=== PATIENT | female | born 1955 | race Caucasian/White ===

== ENCOUNTER 2018-03-31 12:13 | Observation (INO) | payer OTHER ==
--- OUTSIDE RECORDS SUMMARY | 2018-03-31 12:43 | XMS REPORT | Continuity of Care Document ---
:1955 Author Organization Interface Problems Problem Status Onset Classification Date Comments Source Date Reported CPAP 98252 Active 018 [place] 1ST NIGHT - Active 68123 018 [place] UNK Active [facility] 017 [place], [place] GARY CAMPOS Active [facility] 017 [place] E04.1 NONTOXIC Active SINGLE THYROID 016 [facility] NODULE 241.1 GOITER, Active MULTINODULAR, 014 [place] NONTOXIC GERD / Active EPICGASTRIC PAIN 014 [facility] GERD 530.81 / Active 530.85 / 787.02 014 [place] / 789.06 / 787.302=CHRONIC Active NAUSEA/530.81=AC 014 [facility] ID REFLU NAUSEA 787.02 Active /789.01 ABD PAIN 013 [facility] RUQ V12.72/530.81/78 Active 7.02 013 [facility] COPD Active EXACERBATION, 012 [place] HTN, DM Generalized Active Problem 01/30/2018 Data migrated abdominal 009 from [place],M pain<sup>1</sup> Centricity on [place] 01/07/15. Anemia Resolved Problem 01/30/2018 [place],[facility] [place] Constipation Resolved Problem 01/30/2018 [facility] [place] copd Active Problem 12/27/2013 [facility] diabetes Active Problem 12/27/2013 [facility] Emphysema Active Problem 10/25/2015 [facility] exerstemia Active Problem 12/27/2013 [facility] Fibromyalgia Active Problem 01/30/2018 [place] [place] GERD - Active Problem 01/30/2018 Gastro-esophagea [place],M l reflux disease [facility] htn Active Problem 12/27/2013 [facility] hyperlipidemia Active Problem 12/27/2013 [facility] hypothyroidism Active Problem 12/27/2013 [facility] [place] Lupus Active Problem 01/30/2018 [facility] [place] Neuropathy Active Problem 01/30/2018 [facility] [place] PE - Pulmonary Resolved Problem 12/27/2013 00060 after embolism<sup>1</ surgry [place] sup> decompression rt thigh PE - Pulmonary Active Problem 01/30/2018 embolism [place],[facility] [place] Sleep apnea Active Problem 01/30/2018 [facility] [place] systemic lupus Inactive Problem 06/27/2013 [facility] Constipation Active Problem 07/30/2012 [facility] Emphysema Active Problem 07/30/2012 [facility] Fibromyalgia Active Problem 07/30/2012 [place] Lupus Active Problem 07/30/2012 [place] PE - Pulmonary Active Problem 07/30/2012 embolism [place] Obstructive 12/13/2017 sleep apnea [place] (pediatric) Anxiety Active Problem 01/30/2018 [place] [place] COPD (<span Active Problem 01/30/2018 ID="[id number] [facility],M ">Confirmed</spa H [place] n>) BiPAP Active Problem 01/30/2018 dependence(<span [place],M ID="[id number] [facility] ">Confirmed</spa n>) Diabetes Active Problem 01/30/2018 [place] [place] Dyspnea on Active Problem 01/30/2018 exertion [facility] [place] Hyperlipidemia Active Problem 01/30/2018 [facility] [place] Hypertension Active Problem 01/30/2018 [facility] [place] Bilateral leg Active Problem 01/30/2018 weakness [place],[facility] [place] PE - Pulmonary Resolved Problem 01/30/2018 1997 after embolism<sup>2</ surgry [place],M sup> decompression H [place] rt thigh Colon polyp Resolved Problem 01/30/2018 [facility] [place] Sciatic nerve Active Problem 01/30/2018 pain [place] [place] Lupus Active Problem 01/30/2018 [facility] [place] Depression Active Problem 02/25/2017 [place],[facility] [place] CHR AIRWAY Active OBSTRUCT NEC [place] OBSTRUCTIVE Active SLEEP APNEA [place] (ADULT) (PEDIATR Medications Medication Details Route Status Patient Ordering Order Source Instructions Provider Date Sodium Chloride 1,000 mL, Inactive 02/22/ 0.154 MEQ/ML Rate: 2016 [place] Injectable ml/hr, Solution Infuse over: 47.6 hr, Route: IV, Dosing Weight 68.636 kg, Total Volume: 1,000, Start date: 02/22/17 6:27:00 CDT, Duration: 30 day, Stop date: 03/24/17 6:26:00 CDT Prialt 100 See Active mcg/mL Instructions 2017 [place] intrathecal , 500mcg solution INTRATHECAL, 0 Refill(s) Alpha Lipoic PO, Daily, 0 Active Acid 600 mg oral Refill(s) 2017 [place] capsule Culturelle 1 cap, PO, Active [facility] Daily, 0 2017 [facility] oral capsule Refill(s) tizanidine 4 MG 4 mg=1 tab, Active Oral Tablet PO, Q8H, PRN 2017 [place] [Zanaflex] for muscle spasms, # 90 tab, 0 Refill(s) Ipratropium 2 spray, Active [place] 0.021 Each 2017 [facility] MG/ACTUAT Affected Metered Dose Nostril, Nasal [place] BID, # 30 ml, 0 Refill(s) Sodium Chloride 1,000 mL, Inactive 0.154 MEQ/ML Rate: 21 2017 [place] Injectable ml/hr, Solution Infuse over: 47.6 hr, Route: IV, Dosing Weight 77.273 kg, Total Volume: 1,000, Start date: 08/24/16 6:30:00 PLASTIC SHAPER, Duration: 30 day, Stop date: 09/23/16 6:29:00 PLASTIC SHAPER Calcium Chloride 1,000 mL, Inactive 0.0014 MEQ/ML / Rate: 25 2016 [place] Potassium ml/hr, Chloride 0.004 Infuse over: MEQ/ML / Sodium 40 hr, Chloride 0.103 Route: IV, MEQ/ML / Sodium Dosing Lactate 0.028 Weight MEQ/ML 77.273 kg, Injectable Total Solution Volume: 1,000, Start date: 08/24/16 5:59:00 PLASTIC SHAPER, Duration: 30 day, Stop date: 09/23/16 5:58:00 PLASTIC SHAPER pantoprazole 40 40 mg=1 tab, Active MG Enteric PO, Daily, 0 2016 [place] Coated Tablet Refill(s) [Protonix] Plaquenil 100 mg, PO, Active Daily 2016 [place] Losartan PO, Daily, 0 Active Refill(s) 2016 [place] 24 HR 150 mg=1 Active venlafaxine 150 cap, PO, 2016 [place] MG Extended Daily, 0 Release Capsule Refill(s) [Effexor] 12 HR 100 mg=1 Active Orphenadrine tab, PO, 2016 [place] Citrate 100 MG BID, 0 Extended Release Refill(s) Tablet doxepin 10 mg 10 mg=1 cap, Active oral capsule PO, Bedtime 2016 [place] apixaban 5 MG 5 mg=1 tab, Active Oral Tablet PO, BID 2016 [place] [Eliquis] Clonidine 0.1 mg=1 Active Hydrochloride tab, PO, 2016 [place] 0.1 MG Oral BID, PRN Q Tablet 2hrs SBP >170 or DBP >95 Metformin 1,000 mg=1 Active hydrochloride tab, PO, 2016 [place] 1000 MG Oral BID, 0 Tablet Refill(s) magnesium oxide 250 mg=1 Active 250 mg oral tab, PO, 2016 [place] tablet BID, 0 Refill(s) Lorazepam 0.5 MG 0.5 mg=1 Active Oral Tablet tab, PO, 2016 [place] [Ativan] PRN, PRN as needed for anxiety, 0 Refill(s) Visipaque 100 mL, 0 Inactive ml/hr, 2013 Route: IV, Drug Form: SOLN, ONCE, Start date: 11/19/13 10:12:00, Stop date: 11/19/13 10:12:00Note s: (Same as: Visipaque). Sodium Chloride 1,000 mL, Inactive [place] 0.9% IV 1000 mL Rate: 25 2012 ml/hr, Infuse over: 40 hr, Route: IV, Dosing Weight 80.909 kg, Total Volume: 1,000, Start date: 06/25/13 10:04:00, Duration: 30 day, Stop date: 07/25/13 10:03:00 metFORmin 500 mg 500 mg, 1 Active oral tablet tab, PO, 2012 BID, 30 tab, Substitution Allowed Benadryl 25 mg Substitution Active oral tablet Allowed 2012 albuterol 90 2 puff, Active mcg/inh INHALATION, 2012 inhalation PRN, PRN, 1 aerosol ea, wheezing, Substitution Allowed, Maintenance predniSONE 5 mg 5 mg, 1 tab, Active oral tablet PO, Daily, 2012 14 tab, Substitution Allowed, TAB potassium 10 mEq, 1 Active chloride 10 mEq tab, PO, 2012 [facility] oral tablet, BID, 10 tab, extended release Substitution Allowed magnesium oxide 400 mg, 1 Active 400 mg oral tab, PO, 2012 [facility] tablet BID, 10 tab, Substitution Allowed, TAB isosorbide 30 mg, 1 Active dinitrate 30 mg tab, PO, 2012 [facility] oral tablet Daily, 120 tab, Substitution Allowed, TAB doxycycline 100 mg, 1 Active hyclate 100 mg cap, PO, 2012 [facility] oral capsule Q12H, 20 cap, Substitution Allowed Nucynta 50 mg 50 mg, 1 Active oral tablet tab, PO, 2012 [facility] Q4H, PRN, for pain, Substitution Allowed, TAB Nucynta ER 200 PO, BID, Active mg oral tablet, Substitution 2012 [facility] extended release Allowed DuoNeb 3 ml, INHALATION Active [facility] inhalation INHALATION, 2011 [facility] solution Q6H, PRN, 60 ea, as needed for shortness of breath or wheezing, Substitution Allowed, Maintenance, SOLN Levaquin 500 mg 500 mg, 1 PO Active [facility] oral tablet tab, PO, 2011 [facility] Q24H, 7 tab, Substitution Allowed predniSONE taper See Active [facility] weekly Instructions 2011 [facility] , Substitution Allowed, 20 mg PO daily for 3 days then 10 mg PO daily for 3 days then 5 mg PO daily for 3 days then d/c20 mg PO daily for 3 days then 10 mg PO daily for 3 days then 5 mg PO daily for 3 days then d/c Nebulizer 1 ea, MISC, MISC Active [facility] ONCALL, 1 2011 [facility] ea, Substitution Allowed, Maintenance Lancets 1 box, MISC, MISC Active [facility] Daily, 1 2011 [facility] box, Substitution Allowed, Maintenance Blood Glucose 1 box, MISC, MISC Active [facility] Test Strips BID-Before 2011 Meals, 100 strip, Substitution Allowed, Maintenance Blood Glucose 1 ea, MISC, MISC Active [facility] Monitor Daily, Use 2011 as directed., 1 ea, Substitution Allowed, MaintenanceU se as directed. Kayexalate 30 gm, 120 PO No Longer Yessy mL, Route: Active 2011 [facility] PO, Drug form: SUSP, ONCE, Dosing Weight 81.818, kg, Start date: 07/27/12 15:21:00, Stop date: 07/27/12 15:21:00 nitroglycerin 0.4 mg, 1 SL No Longer Yessy 0.4 mg tab, Route: 2011 sublingual SL, Drug tablet form: TAB, Q5Min, PRN Chest Pain, Start date: 07/25/12 1:25:00, Duration: 30 day, Stop date: 08/24/12 1:24:00 atropine 0.5 mg, 5 IVP No Longer Yessy mL, Route: 2011 [facility] IVP, Drug form: INJ, PRN, PRN Bradycardia, Start date: 07/25/12 1:25:00, Duration: 30 day, Stop date: 08/24/12 1:24:00 Dilaudid 1 mg, 1 mL, IV No Longer Yessy Route: IV, Active 2011 [facility] Drug form: SOLN, Q3H, Dosing Weight 81.818, kg, PRN Pain Score 4-6, Start date: 07/24/12 10:46:00, Duration: 30 day, Stop date: 08/23/12 10:45:00 SoluMedrol 20 mg, 0.5 IVP No Longer Yessy mL, Route: 2011 [facility] IVP, Drug form: INJ, Q12H, Dosing Weight 81.818, kg, Start date: 07/23/12 21:00:00, Stop date: 08/22/12 9:00:00 Levemir 12 unit, SUB-Q No Longer [place] 0.12 mL, Active 2011 Route: SUB-Q, Drug form: INJ, Bedtime, Dosing Weight 81.818, kg, Start date: 07/23/12 21:00:00, Duration: 30 day, Stop date: 08/21/12 21:00:00 nystatin 100,000 500,000 S&SWALLOW No Longer [place] units/mL oral unit, 5 mL, [facility] 2011 [facility] suspension Route: S&SWALLOW, Drug form: SUSP, QID, Dosing Weight 81.818, kg, Start date: 07/23/12 9:00:00, Duration: 7 day, Stop date: 07/29/12 21:00:00 Mucinex DM 1 tab, PO No Longer [place] Route: PO, [facility] 2011 [facility] Drug Form: ERTAB, Dosing Weight 81.818, kg, Q12H, Start date: 07/23/12 9:00:00, Duration: 30 day, Stop date: 08/21/12 21:00:00 Diflucan 200 mg, 2 PO No Longer [place] tab, Route: [facility] 2011 [facility] PO, Drug form: TAB, [id number], Dosing Weight 81.818, kg, Start date: 07/23/12 8:00:00, Duration: 5 day, Stop date: 07/27/12 8:00:00 Fleet Enema 133 ml, GA No Longer [place] Route: GA, [facility] 2011 [facility] Drug Form: KRISTIE, Dosing Weight 81.818, kg, ONCE, Start date: 07/23/12 7:42:00, Stop date: 07/23/12 7:42:00 MiraLax 17 gm, 1 PO No Longer [place] pkt, Route: [facility] 2011 [facility] PO, Drug form: PWDR, Bedtime, Dosing Weight 81.818, kg, Start date: 07/22/12 21:00:00, Duration: 30 day, Stop date: 08/20/12 21:00:00 Protonix 40 mg, 1 PO No Longer [place] tab, Route: [facility] 2011 [facility] PO, Drug form: ECTAB, Before Dinner, Start date: 07/22/12 16:30:00, Duration: 30 day, Stop date: 08/20/12 16:30:00 NovoLog 15 unit, SUB-Q No Longer [place] 0.15 mL, Active 2011 [facility] Route: SUB-Q, Drug form: SOLN, TID-Before Meals, Dosing Weight 81.818, kg, Start date: 07/22/12 11:30:00, Stop date: 08/21/12 7:30:00 Caltrate 600 Route: PO, PO No Longer [facility] Plus Dosing Active 2011 [facility] Weight 81.818, kg, Daily, Start date: 07/22/12 9:00:00, Duration: 30 day, Stop date: 08/20/12 9:00:00 calcium-vitamin 1 tab, PO No Longer [facility] D 500 mg-200 Route: PO, 2011 [facility] intl units oral Drug Form: tablet TAB, Daily, Start date: 07/22/12 9:00:00, Duration: 30 day, Stop date: 08/20/12 9:00:00 lidocaine 1 appl, TOP No Longer [facility] topical 0.5% gel Route: TOP, Active 2011 [facility] Drug Form: GEL, Dosing Weight 81.818, kg, TID, Start date: 07/22/12 9:00:00, Duration: 30 day, Stop date: 08/20/12 17:00:00 amlodipine-olmes 1 tab, PO No Longer [facility] ирина 5 mg-40 mg Route: PO, 2011 [facility] oral tablet Dosing Weight 81.818, kg, Daily, Start date: 07/22/12 9:00:00, Duration: 30 day, Stop date: 08/20/12 9:00:00 esomeprazole 40 mg, PO No Longer [place] Route: PO, 2011 [facility] Drug form: ECCAP, Daily, Dosing Weight 81.818, kg, Start date: 07/22/12 9:00:00, Duration: 30 day, Stop date: 08/20/12 9:00:00 folic acid 1 mg, 1 tab, PO No Longer [place] Route: PO, 2011 [facility] Drug form: TAB, Daily, Dosing Weight 81.818, kg, Start date: 07/22/12 9:00:00, Duration: 30 day, Stop date: 08/20/12 9:00:00 Cymbalta 60 mg, 2 PO No Longer [place] cap, Route: Active 2011 [facility] PO, Drug form: DRC, Daily, Dosing Weight 81.818, kg, Start date: 07/22/12 9:00:00, Duration: 30 day, Stop date: 08/20/12 9:00:00 Evoxac 30 mg, 1 PO No Longer [place] cap, Route: Active 2011 [facility] PO, Drug form: CAP, TID, Dosing Weight 81.818, kg, Start date: 07/22/12 9:00:00, Duration: 30 day, Stop date: 08/20/12 17:00:00 Benicar 40 mg, 2 PO No Longer [facility] tab, Route: Active 2011 [facility] PO, Drug form: TAB, Daily, Start date: 07/22/12 9:00:00, Duration: 30 day, Stop date: 08/20/12 9:00:00 dextromethorphan 1 tab, PO No Longer Misael -guaifenesin Route: PO, Active 2011 [facility] Drug Form: ERTAB, BID, Start date: 07/22/12 9:00:00, Duration: 30 day, Stop date: 08/20/12 17:00:00 Norvasc 5 mg, 1 tab, PO No Longer [place] Route: PO, [facility] 2011 [facility] Drug form: TAB, Daily, Start date: 07/22/12 9:00:00, Duration: 30 day, Stop date: 08/20/12 9:00:00 Zithromax 500 mg 250 mg, 1 PO No Longer [facility] oral tablet tab, Route: Active 2011 [facility] PO, Drug form: TAB, Daily, Dosing Weight 81.818, kg, Start date: 07/22/12 9:00:00, Duration: 30 day, Stop date: 08/20/12 9:00:00 Mucinex DM 1 tab, PO No Longer [place] Route: PO, Active 2011 [facility] Drug Form: ERTAB, Dosing Weight 81.818, kg, Q12H, Start date: 07/22/12 9:00:00, Duration: 30 day, Stop date: 08/20/12 21:00:00 cyanocobalamin 1,000 PO No Longer [place] microgram, 2 Active 2011 [facility] tab, Route: PO, Drug form: TAB, Daily, Dosing Weight 81.818, kg, Start date: 07/22/12 9:00:00, Duration: 30 day, Stop date: 08/20/12 9:00:00 Lidocaine 0.5% Lidocaine TOP No Longer [facility] Topical Gel 0.5% Topical Active 2011 [facility] Pt's Own Med Gel Pt's Own Med, 1 appl, Drug form: MISC, Route: TOP, TID, 07/22/12 9:00:00, Duration: 30 day, Stop date: 08/20/12 17:00:00 Zanaflex 4 mg, 1 tab, PO No Longer [place] Route: PO, Active 2011 [facility] Drug form: TAB, TID, Dosing Weight 81.818, kg, Start date: 07/22/12 9:00:00, Duration: 30 day, Stop date: 08/20/12 17:00:00 Carafate 1 gm, 1 tab, PO No Longer [place] Route: PO, Active 2011 [facility] Drug form: TAB, BID, Dosing Weight 81.818, kg, Start date: 07/22/12 9:00:00, Duration: 30 day, Stop date: 08/20/12 17:00:00 Neurontin 300 mg 300 mg, 1 PO No Longer [facility] oral capsule cap, Route: Active 2011 [facility] PO, Drug form: CAP, Q8H, Dosing Weight 81.818, kg, Start date: 07/22/12 8:00:00, Duration: 30 day, Stop date: 08/21/12 0:00:00 clonidine 0.1 mg 0.1 mg, 1 PO No Longer [facility] oral tablet tab, Route: Active 2011 PO, Drug form: TAB, Q8H, Dosing Weight 81.818, kg, Start date: 07/22/12 8:00:00, Duration: 30 day, Stop date: 08/21/12 0:00:00 levothyroxine 25 PO No Longer [place] microgram, 1 Active 2011 [facility] tab, Route: PO, Drug form: TAB, [id number], Dosing Weight 81.818, kg, Start date: 07/22/12 6:30:00, Duration: 30 day, Stop date: 08/20/12 6:30:00 RN pls bring RN pls bring MISC No Longer [facility] pt's own med pt's own med Active 2011 [facility] 'Lidocaine 'Lidocaine 0.5%gel' to Rph 0.5%gel' to Rph, 1 attn, Drug form: MISC, Route: MISC, QSHIFT, 07/22/12 6:00:00, Duration: 3 day, Stop date: 07/25/12 0:00:00 Ativan 1.5 mg, 1.5 PO No Longer [place] tab, Route: Active 2011 [facility] PO, Drug form: TAB, Q4H, PRN Anxiety, Start date: 07/22/12 4:20:00, Duration: 30 day, Stop date: 08/21/12 4:19:00 methylPREDNISolo 60 mg, 0.96 IV No Longer [facility] ne mL, Route: Active 2011 [facility] IV, Drug form: INJ, Q8H, Start date: 07/22/12 0:00:00, Duration: 30 day, Stop date: 08/20/12 16:00:00 Rocephin + 1 gm, Route: IVPB No Longer [place] Sodium Chloride IVPB, Active 2011 [facility] 0.9% IV 100 mL [id number], Dosing Weight 81.818, kg, Start date: 07/22/12 0:00:00, Duration: 30 day, Stop date: 08/20/12 0:00:00 enoxaparin 40 mg, 0.4 SUB-Q No Longer [place] mL, Route: Active 2011 [facility] SUB-Q, Drug form: INJ, [id number], Dosing Weight 81.818, kg, Start date: 07/22/12 0:00:00, Duration: 30 day, Stop date: 08/20/12 0:00:00 Mucinex DM 1 tab, PO, PO Active [place] Q12H, 2011 Substitution Allowed, Maintenance Vitamin B-12 1,000 PO Active [place] 1000 mcg oral microgram, 1 2011 [facility] tablet tab, PO, Daily, 30 tab, Substitution Allowed, TAB Ativan 1 mg, 1 tab, PO No Longer [place] Route: PO, Active 2011 [facility] Drug form: TAB, Q4H, Dosing Weight 81.818, kg, PRN as needed for anxiety, Start date: 07/21/12 23:41:00, Duration: 30 day, Stop date: 08/20/12 23:40:00 Phenergan 25 mg 50 mg, 2 PO Active oral tablet tab, PO, 2011 Q4H, PRN, 15 tab, Nausea, Substitution Allowed [place] 10/325 1-2 tab, PO, PO Active oral tablet TID, PRN, 30 2011 tab, as needed for pain, Substitution Allowed, Maintenance Ativan 1 mg oral 1-1.5 tab, PO Active [facility] tablet PO, Q4H, 2011 PRN, 20 tab, as needed for anxiety, Substitution Allowed lidocaine 1 appl, TOP, TOP Active [facility] topical 0.5% gel TID, 120 gm, 2011 Substitution Allowed, Maintenance, GEL multivitamin Substitution Active Allowed, 2011 Maintenance Zocor 40 mg oral 40 mg, 1 PO Active tablet tab, PO, 2011 Daily, 30 tab, Substitution Allowed, Maintenance Neurontin 300 mg 300 mg, 1 PO Active [facility] oral capsule cap, PO, 2011 TID, 90 cap, Substitution Allowed levothyroxine 25 25 PO Active [facility] mcg (0.025 mg) microgram, 1 2011 [facility] oral tablet tab, PO, Daily, 30 tab, Substitution Allowed, TAB Caltrate 600 Substitution Active [facility] 07/22/ Plus Allowed, 2011 Maintenance potassium 10 mEq, 1 PO No Longer chloride 10 mEq tab, PO, Active 2011 [facility] oral tablet, BID, 10 tab, extended release Substitution Allowed Ziac 10 mg-6.25 1 tab, PO, PO Active mg oral tablet Daily, 30 2011 tab, Substitution Allowed, Maintenance, TAB Zanaflex 4 mg 4 mg, 1 cap, PO Active [facility] 12/15/ [facility] oral capsule PO, TID, 90 2011 cap, Substitution Allowed, CAP predniSONE 5 mg 5 mg, 1 tab, PO No Longer [facility] oral tablet PO, Daily, 7 Active 2011 tab, Substitution Allowed, TAB Nexium 40 mg 40 mg, 1 PO Active [facility] oral delayed cap, PO, 2011 release capsule Daily, Substitution Allowed folic acid 1 mg 1 mg, 1 tab, PO Active [facility] 07/22/ [facility] oral tablet PO, Daily, 2011 30 tab, Substitution Allowed, TAB Evoxac 30 mg 30 mg, 1 PO Active [facility] oral capsule cap, PO, 2011 TID, 270 cap, Substitution Allowed, CAP Cymbalta 60 mg 60 mg, 1 PO Active [facility] oral delayed cap, PO, 2011 release capsule Daily, 30 cap, Substitution Allowed, ECCAP Coumadin 3 mg 3 mg, 1 tab, PO Active 07/22/ [facility] oral tablet PO, Daily, 2011 30 tab, Substitution Allowed, TAB clonidine 0.1 mg 0.1 mg, PO, PO Active [facility] oral tablet Daily, PRN, 2011 60 tab, anxiety, Substitution Allowed Carafate 1 g 1 gm, 1 tab, PO Active [facility] oral tablet PO, BID, 120 2011 tab, Substitution Allowed Benicar HCT 12.5 1 tab, PO, PO Active [facility] 07/22/ [facility] mg-40 mg oral Daily, 30 2011 tablet tab, Substitution Allowed, Maintenance, TAB MiraLax oral 17 gm, PO, PO Active [facility] powder for Bedtime, 255 2011 reconstitution gm, Substitution Allowed, PDR/REC DuoNeb 3 mL, Route: NEB No Longer [facility]ael inhalation NEB, Drug Active 2011 solution Form: KENDALL [id number], Start date: 07/21/12 23:00:00, Duration: 30 day, Stop date: 08/20/12 19:00:00 Levaquin 750 mg, 150 IV No Longer [facility] MH mL, Route: Active 2011 IV, Drug form: KENDALL [id number], Start date: 07/21/12 23:00:00, Duration: 30 day, Stop date: 08/19/12 23:00:00 Dextrose 50% in 50 mL, IVP No Longer [facility] Water IV Route: IVP, Active 2011 [facility] Start date: 07/21/12 22:31:00, Duration: 30 day, Stop date: 08/20/12 22:30:00, PRN Blood Glucose Results glucagon 1 mg, Route: IM No Longer [facility] 07/22/ IM, Drug Active 2011 [facility] form: PDR/INJ, PRN, PRN Blood Glucose Results, Start date: 07/21/12 22:31:00, Duration: 30 day, Stop date: 08/20/12 22:30:00 NovoLog FlexPen 18 unit, SUB-Q No Longer [facility] 0.18 mL, Active 2011 [facility] Route: SUB-Q, Drug form: SOLN, Sliding Scale, PRN Blood Glucose Results, Start date: 07/21/12 22:30:00, Duration: 30 day, Stop date: 08/20/12 22:29:00 DuoNeb 3 mL, Route: NEB No Longer [facility] inhalation NEB, Drug Active 2011 [facility] solution Form: SOLN, RQ2H, PRN Shortness of breath, Start date: 07/21/12 22:12:00, Duration: 30 day, Stop date: 08/20/12 22:11:00 clonidine 0.1 mg 0.1 mg, 1 PO No Longer [place] oral tablet tab, Route: Active 2011 [facility] PO, Drug form: TAB, Q6H, PRN Other -See Comment, Start date: 07/21/12 22:11:00, Duration: 30 day, Stop date: 08/20/12 22:10:00 hydrALAZINE 20 mg, 1 mL, IV No Longer [facility] Route: IV, Active 2011 [facility] Drug form: INJ, Q6H, PRN Other -See Comment, Start date: 07/21/12 22:10:00, Duration: 30 day, Stop date: 08/20/12 22:09:00 Tylenol 650 mg, 2 PO No Longer [facility] 07/22/ tab, Route: Active 2011 [facility] PO, Drug form: TAB, Q6H, PRN Pain/Fever, Start date: 07/21/12 22:10:00, Duration: 30 day, Stop date: 08/20/12 22:09:00 Zofran 4 mg, 2 mL, IVP No Longer [facility] Route: IVP, Active 2011 [facility] Drug form: INJ, Q4H, PRN Nausea, Start date: 07/21/12 22:10:00, Duration: 30 day, Stop date: 08/20/12 22:09:00 Ambien 5 mg, 1 tab, PO No Longer [facility] Route: PO, Active 2011 [facility] Drug form: TAB, Bedtime, PRN Sleep, Start date: 07/21/12 22:09:00, Duration: 30 day, Stop date: 08/20/12 22:08:00 morphine Sulfate 4 mg, 2 mL, IV No Longer [facility] Route: IV, Active 2011 [facility] Drug form: INJ, Q4H, PRN Pain, Start date: 07/21/12 22:09:00, Duration: 30 day, Stop date: 08/20/12 22:08:00 Allergies, Adverse Reactions, Alerts Substance Category Reaction Severity Reaction Status Date Comments Source type Reported codeine<davis Assertion Nausea Drug Active Data p>1</sup> and allergy [address] [place] [facility] [address] [facility]. Originally documented as CODEINE. Gastrointes tinal problems, e.g., nausea, vomiting, diarrhea codeine Assertion Nausea Propensity Active and to adverse [place] vomiting reactions to drug Immunizations Immunization Date Given Site Status Last Updated Comments Source Results Order Name Results Value Reference Date Interpretation Comments Source Range CHEM PANEL eGFR 87 02/15 Result Comment: The eGFR is calculated using the CKD-EPI formula. In most young, healthy individuals the eGFR will be >90 mL/ min/1.73m2. The eGFR declines with age. An eGFR of 60-89 may be normal in mL/min/1. some populations, particularly the elderly, for whom the CKD-EPI formula has not been extensively validated. Use of the eGFR is not recommended in the following populations: [place] [id number] Individuals with unstable creatinine concentrations, including patients and those with serious co-morbid conditions. Patients with extremes in muscle mass or diet. The data above are obtained from the National Kidney Disease Education Program (NKDEP) which additionally recommends that when the eGFR is used in patients with extremes of body mass index for purposes of drug dosing, the eGFR should be multiplied by the estimated BMI. CHEM PANEL Chloride Lvl 108 meq/L 95 - 109 02/15 [place] CHEM PANEL Potassium 4.0 meq/L 3.5 - 5.1 02/15 Lvl [place] CHEM PANEL AGAP 6.0 meq/L 10.0 - 02/15 20.0 [place] CHEM PANEL CO2 35 meq/L 24 - 02/15 [place] CHEM PANEL Calcium Lvl 8.5 mg/dL 8.5 - 10.5 02/15 [place] CHEM PANEL Glucose Lvl 84 mg/dL 70 - 99 02/15 [place] CHEM PANEL BUN 16 mg/dL 7 - 22 02/15 [place] CHEM PANEL Creatinine 0.74 mg/dL 0.50 - 02/15 Lvl 1. [place] CHEM PANEL Sodium Lvl 145 meq/L 135 - 145 02/15 [place] SPECIAL Hgb A1C 5.9 % <=5.6 % 02/15 [place] CHEM PANEL eGFR 75 08/17 Result Comment: The eGFR is calculated using the CKD-EPI formula. In most young, healthy individuals the eGFR will be >90 mL/ min/1.73m2. The eGFR declines with age. An eGFR of 60-89 may be normal in mL/min/1. some populations, particularly the elderly, for whom the CKD-EPI formula has not been extensively validated. Use of the eGFR is not recommended in the following populations: [place] [address] Individuals with unstable creatinine concentrations, including patients and those with serious co-morbid conditions. Patients with extremes in muscle mass or diet. The data above are obtained from the National Kidney Disease Education Program (NKDEP) which additionally recommends that when the eGFR is used in patients with extremes of body mass index for purposes of drug dosing, the eGFR should be multiplied by the estimated BMI. CHEM PANEL CO2 31 meq/L 24 - 32 08/17 [place] CHEM PANEL Calcium Lvl 9.2 mg/dL 8.5 - 10.5 08/17 [place] CHEM PANEL AGAP 10.1 meq/L 10.0 - 08/17 MH 20.0 [place] CHEM PANEL Creatinine 0.84 mg/dL 0.50 - 08/17 MH Lvl 1.40 [place] CHEM PANEL Sodium Lvl 146 meq/L 135 - 145 08/17 [place] CHEM PANEL Potassium 4.1 meq/L 3.5 - 5.1 08/17 MH Lvl [place] CHEM PANEL Chloride Lvl 109 meq/L 95 - 109 08/17 [place] CHEM PANEL Glucose Lvl 100 mg/dL 70 - 99 08/17 [place] CHEM PANEL BUN 14 mg/dL 7 - 22 08/17 [place] Thyroid US Thyroid US THYROID ULTRASOUND 10/21 - INDICATION:Follow-up nontoxic thyroid nodule Read by: Esa House MD Dictated Date/time: 10/23/15 17:52 Electronically Signed by: Esa House MD 10/23/15 17:54 FINAL REPORT COMPARISON: Thyroid ultrasound 12/25/2013 DISCUSSION: The thyroid is normal in size, but diffusely heterogeneous in echotexture. The right lobe measures 4.1 x 1.3 x 1.5 cm. The left lobe measures 3.1 x 1.2 x 1.1 cm. The isthmus measures 0.3 cm in width. Th ere is no significant interval change in a heterogeneous nodule of the mid right lobe, measuring 1.4 cm in greatest dimension. An adjacent 5 mm simple cyst is again noted. No nodularity is seen on the left side. IMPRESSION: Grossly stable 1.4 cm right lobe nodule. SL:16 Thyroid US Thyroid US THYROID ULTRASOUND: The right lobe is 3.7 cm in length and 1.3 x 1.6 cm in transverse dimension. The left lobe is 3.7 cm in length and a 0.9 x 1.3 cm in transverse dimension. The isthmus is 3 mm in thic 12/25 [facility]. There is diffusely heterogeneous echotexture of the thyroid with rounded slightly lobular contours. Read by: Garret Mendez MD There is a 1.2 cm heterogeneous ovoid nodule in the mid right lobe demonstrating a couple of small cystic areas and mildly increased vascularity. This was previously demonstrated on the ultrasound of Dictated Date/ time: 12/26/13 07: and appears relatively similar except for slightly less cystic change. A 5 mm cyst in the posterior right lobe is demonstrated and also unchanged. No other nodules or cysts are seen. Electronically Signed by: Garret Mendez MD 12/26/13 07:33 FINAL REPORT IMPRESSION: Stable nodule in the right lobe. SL:13 Abdomen w Abdomen w IV CT ABDOMEN WITH CONTRAST: 11/[address] TECHNIQUE: The exam was done with oral and IV contrast. Read by: Garret Mendez Dictated Date/time: 11/19/13 10:25 Electronically Signed by: Garret Mendez MD 11/19/13 10:29 FINAL REPORT FINDINGS: There is no definite mass seen involving the distal esophagus or GE junction. There is moderate fecal material in the colon. The stomach and remainder of the visible GI tract are otherwise within normal limits. The liver, gallbladder, spleen, pancreas, kidneys and adrenal glands show no significant abnormalities. There are no significant vascular or retroperitoneal abnormalities. IMPRESSION: No significant CT abnormality of the abdomen. SL:13 [place]ad[place] Gallbladder HISTORY: Nausea. 10/24 r scan scan HIDA wo /2013 HIDA wo meds NM meds NM Nuclear gallbladder scan with gallbladder ejection fraction. Read by : Brennen Austin Dictated Date/time: 10/24/13 13:07 Electronically Signed by: Brennen Austin MD 10/24/13 13:13 FINAL REPORT The patient was administered 6 mCi technetium 99m Choletec radiotracer. Gallbladder is noted by 15 minutes and small bowel noted by 45 minutes. This is consistent with a normal nuclear gallbladder scan. The patient was then administered oral fatty meal to stimulate gallbladder contraction. (Cholecystokinin infusion not available.) Gallbladder ejection fraction calculated to be 41%. Although slightly low, the physiologic significance of this finding is uncertain. SL:13 Abdomen Abdomen PROCEDURE: Abdomen complete US 06/25 complete complete US /2012 US CLINICAL INFORMATION: abd pain, ruq pain Read by: Corby Salomon Dictated Date/time: 06/25/13 16:03 COMPARISON: None. Electronically Signed by: Corby Salomon MD 06/25/13 16:06 FINAL REPORT FINDINGS: The pancreas body is normal. The head and tail are obscured by bowel gas. The aorta and inferior vena cava appear normal on grayscale imaging. The liver echotexture is increased. There is no intrahepatic ductal dilation. The gallbladder is without stones, pericholecystic fluid or abnormal wall thickness. The common bile duct measures 3.8 mm. The right kidney measures 10.5 x 4.8 x 4.3 cm. The renal cortical thickness measures 1.2 cm. The left kidney measures 10.1 x 6.3 x 4.6 cm. The renal cortical thickness measures 2.0 cm. There is normal corticomedullary differentiation and flow, there is no hydronephrosis. The spleen measures 9 x 4.2 cm. IMPRESSION: 1. Increased liver echogenicity secondary to fatty infiltration or hepatocellular disease. SL: 13 BEDSIDE Gluc POC 191 mg/dL 70 - 99 07/28 [place] 2Interpretive GLUCOSE Lifscn Data: [facility] TESTING Upper Reportable Limit: 200 mg/dL. BEDSIDE Comment1 Assess 07/28 [facility] GLUCOSE patient /2011 [facility] TESTING BEDSIDE Comment2 Notify 07/28 [facility] GLUCOSE RN/MD [facility] TESTING BEDSIDE Comment2 Notify 07/28 [facility] GLUCOSE RN/MD [facility] TESTING BEDSIDE Gluc POC 225 mg/dL 70 - 99 07/28 [place] 3Interpretive GLUCOSE Lifscn Data: [facility] TESTING Upper Reportable Limit: 200 mg/dL. BEDSIDE Comment1 Assess 07/28 [facility] GLUCOSE patient /2011 [facility] TESTING BEDSIDE Gluc POC 187 mg/dL 70 - 99 07/28 [place] 4Interpretive GLUCOSE Lifscn Data: [facility] TESTING Upper Reportable Limit: 200 mg/dL. BEDSIDE Comment1 Notify 07/28 [facility] GLUCOSE RN/MD [facility] TESTING CHEMISTRY eGFR 81 07/28 NA 6Result Comment: The eGFR is calculated using the CKD-EPI formula. In most young, healthy individuals the eGFR will be > 90 mL/min/1.73m2. The eGFR declines with age. An eGFR of 60-89 may be normal in MH mL/min/1.7 /2012 some populations, particularly the elderly, for whom the CKD-EPI formula has not been extensively validated. Use of the eGFR is not recommended in the following populations: [facility] 3m2 Individuals with unstable creatinine concentrations, including patients and those with serious co-morbid conditions. Patients with extremes in muscle mass or diet. The data above are obtained from the National Kidney Disease Education Program (NKDEP) which additionally recommends that when the eGFR is used in patients with extremes of body mass index for purposes of drug dosing, the eGFR should be multiplied by the estimated BMI. CHEMISTRY BUN 24 mg/dL 7 - 22 07/28 [place] MH /2011 [facility] CHEMISTRY Glucose Lvl 188 mg/dL 70 - 99 07/28 [place] 9Interpretive Data: Adult reference range values reflect the clinical guidelines of the [place] [employer]. [facility] CHEMISTRY CO2 30 meq/L 24 - 32 07/28 Normal MH [facility] CHEMISTRY Creatinine 0.8 mg/dL 0.5 - 1.4 07/28 Normal MH Lvl /2011 [facility] CHEMISTRY Calcium Lvl 8.3 mg/dL 8.5 - 10.5 07/28 LOW MH /2011 [facility] CHEMISTRY AGAP 13.8 meq/L 10.0 - 07/28 Normal MH 20.0 [facility] CHEMISTRY Chloride Lvl 102 meq/L 95 - 109 07/28 Normal [facility] CHEMISTRY Sodium Lvl 141 meq/L 135 - 145 07/28 Normal MH [facility] CHEMISTRY Potassium 4.8 meq/L 3.5 - 5.1 07/28 Normal MH Lvl /2011 [facility] HEMATOLOGY MCHC 32.9 g/dL 32.0 - 07/28 Normal MH 36.0 [facility] HEMATOLOGY MPV 9.8 fL 7.4 - 10.4 07/28 Normal MH /2011 [facility] HEMATOLOGY Platelet 202 K/CMM 133 - 450 07/28 Normal [facility] HEMATOLOGY RDW 14.9 % 11.5 - 07/28 HI MH 14.5 [facility] HEMATOLOGY WBC 14.3 K/CMM 3.7 - 10.4 07/28 HI MH /2011 [facility] HEMATOLOGY MCH 30.9 pg 27.0 - 07/28 Normal MH 31.0 [facility] HEMATOLOGY MCV 93.8 fL 81.0 - 07/28 Normal MH 99.0 [facility] HEMATOLOGY Hct 35.0 % 36.0 - 07/28 LOW MH 48.0 [facility] HEMATOLOGY Hgb 11.5 g/dL 12.0 - 07/28 LOW MH 16.0 [facility] HEMATOLOGY RBC 3.73 M/CMM 4.20 - 07/28 LOW MH 5.40 /2011 [facility] CHEMISTRY Sodium Lvl 138 meq/L 135 - 145 07/27 Normal MH /2011 [facility] CHEMISTRY Chloride Lvl 99 meq/L 95 - 109 07/27 Normal [facility] CHEMISTRY Potassium 5.9 meq/L 3.5 - 5.1 07/27 HI Lvl [facility] CHEMISTRY eGFR 100 07/27 NA 7Result Comment: The eGFR is calculated using the CKD-EPI formula. In most young, healthy individuals the eGFR will be > 90 mL/min/1.73m2. The eGFR declines with age. An eGFR of 60-89 may be normal in mL/min/1.7 some populations, particularly the elderly, for whom the CKD-EPI formula has not been extensively validated. Use of the eGFR is not recommended in the following populations: [facility] 3m2 Individuals with unstable creatinine concentrations, including patients and those with serious co-morbid conditions. Patients with extremes in muscle mass or diet. The data above are obtained from the National Kidney Disease Education Program (NKDEP) which additionally recommends that when the eGFR is used in patients with extremes of body mass index for purposes of drug dosing, the eGFR should be multiplied by the estimated BMI. CHEMISTRY Calcium Lvl 8.2 mg/dL 8.5 - 10.5 07/27 LOW MH [facility] CHEMISTRY Creatinine 0.6 mg/dL 0.5 - 1.4 07/27 Normal Lvl [facility] CHEMISTRY BUN 24 mg/dL 7 - 22 07/27 HI [facility] CHEMISTRY CO2 28 meq/L 24 - 32 07/27 Normal [facility] CHEMISTRY Glucose Lvl 207 mg/dL 70 - 99 07/27 [place] 10Interpretive Data: Adult reference range values reflect the clinical guidelines of the [place] [employer]. [facility] CHEMISTRY AGAP 16.9 meq/L 10.0 - 07/27 Normal MH 20.0 [facility] HEMATOLOGY WBC 15.9 K/CMM 3.7 - 10.4 07/27 HI [facility] HEMATOLOGY RBC 3.82 M/CMM 4.20 - 12 LOW MH 5.40 [facility] HEMATOLOGY Hgb 11.8 g/dL 12.0 - 07/27 LOW MH 16.0 [facility] HEMATOLOGY Hct 35.6 % 36.0 - 07/27 LOW MH 48.0 [facility] HEMATOLOGY MCV 93.2 fL 81.0 - 07/27 Normal MH 99.0 [facility] HEMATOLOGY MCH 30.9 pg 27.0 - 07/27 Normal MH 31.0 /2012 [facility] HEMATOLOGY Platelet 197 K/CMM 133 - 450 07/27 Normal [facility] HEMATOLOGY MPV 9.8 fL 7.4 - 10.4 07/27 Normal [facility] HEMATOLOGY MCHC 33.2 g/dL 32.0 - 07/27 Normal MH 36.0 [facility] HEMATOLOGY RDW 14.8 % 11.5 - 07/27 HI MH 14.5 [facility] CHEMISTRY AGAP 14.7 meq/L 10.0 - 07/26 Normal MH 20.0 [facility] CHEMISTRY eGFR 70 07/26 NA 8Result Comment: The eGFR is calculated using the CKD-EPI formula. In most young, healthy individuals the eGFR will be > 90 mL/min/1.73m2. The eGFR declines with age. An eGFR of 60-89 may be normal in mL/min/1.7 some populations, particularly the elderly, for whom the CKD-EPI formula has not been extensively validated. Use of the eGFR is not recommended in the following populations: [facility] 3m2 Individuals with unstable creatinine concentrations, including patients and those with serious co-morbid conditions. Patients with extremes in muscle mass or diet. The data above are obtained from the National Kidney Disease Education Program (NKDEP) which additionally recommends that when the eGFR is used in patients with extremes of body mass index for purposes of drug dosing, the eGFR should be multiplied by the estimated BMI. CHEMISTRY Creatinine 0.9 mg/dL 0.5 - 1.4 07/26 Normal Lvl [facility] CHEMISTRY Sodium Lvl 141 meq/L 135 - 145 07/26 Normal [facility] CHEMISTRY CO2 33 meq/L 24 - 32 07/26 HI [facility] CHEMISTRY Calcium Lvl 8.3 mg/dL 8.5 - 10.5 07/26 LOW [facility] CHEMISTRY Potassium 4.7 meq/L 3.5 - 5.1 07/26 Normal Lvl [facility] CHEMISTRY Chloride Lvl 98 meq/L 95 - 109 07/26 Normal [facility] CHEMISTRY Glucose Lvl 235 mg/dL 70 - 99 07/26 [place] 11Interpretive Data: Adult reference range values reflect the clinical guidelines of the [place] [employer]. [facility] CHEMISTRY BUN 29 mg/dL 7 - 22 07/26 HI [facility] HEMATOLOGY MCV 92.0 fL 81.0 - 07/26 Normal MH 99.0 [facility] HEMATOLOGY MCH 31.3 pg 27.0 - 07/26 HI MH 31.0 /2011 [facility] HEMATOLOGY Hgb 12.0 g/dL 12.0 - 07/26 Normal MH 16.0 /2011 [facility] HEMATOLOGY Hct 35.3 % 36.0 - 07/26 LOW MH 48.0 /2011 [facility] HEMATOLOGY MPV 9.8 fL 7.4 - 10.4 07/26 Normal MH /2011 [facility] HEMATOLOGY Platelet 215 K/CMM 133 - 450 07/26 Normal MH /2011 [facility] HEMATOLOGY RDW 14.7 % 11.5 - 07/26 HI MH 14.5 /2011 [facility] HEMATOLOGY MCHC 34.1 g/dL 32.0 - 07/26 Normal MH 36.0 /2011 [facility] HEMATOLOGY RBC 3.83 M/CMM 4.20 - 07/26 LOW MH 5.40 /2011 [facility] HEMATOLOGY WBC 17.2 K/CMM 3.7 - 10.4 07/26 HI MH /2011 [facility] BEDSIDE Comment2 Notify 07/24 NA GLUCOSE RN/MD /2011 [facility] TESTING CHEMISTRY Albumin Lvl 2.7 g/dL 3.5 - 5.0 07/23 LOW MH /2011 [facility] CHEMISTRY B/C Ratio 27 6 - 25 07/23 HI MH /2011 [facility] CHEMISTRY A/G Ratio 0.8 0.7 - 1.6 07/23 Normal [facility] CHEMISTRY Globulin 3.3 g/dL 2.0 - 4.0 07/23 Normal [facility] CHEMISTRY AST 36 unit/L 0 - 37 07/23 Normal [facility] CHEMISTRY Bili Total 0.5 mg/dL 0.2 - 1.3 07/23 Normal [facility] CHEMISTRY Alk Phos 72 unit/L 39 - 136 07/23 Normal [facility] CHEMISTRY ALT 62 unit/L 0 - 65 07/23 Normal [facility] CHEMISTRY Total 6.0 g/dL 6.4 - 8.4 07/23 LOW [facility] Microbiolo Gram Stain 07/22 gy [facility] Microbiolo Culture: 07/22 gy Respiratory [facility] w/Gram Stain VIRAL - Influ B Negative 5 Negative 07/22 Normal 5Interpretive SEROLOGY Data: [facility] [place] (07/22/2012 10:05:00) to the low sensitivity of this test a negative result does not exclude influenza virus infection. A diagnosis of influenza should be considered based on a patient's clinical presentation and empiric antiviral treatment should be considered, if indicated. If more conclusive testing is desired, follow-up confirmatory testing with either viral culture or PCR is warranted. VIRAL - Influ A Negative Negative 07/22 Normal SEROLOGY /2011 [facility] (07/22/2012 10:05:00) BACTERIAL MRSA by PCR Negative 1 07/22 Normal 1Interpretive Data: Interpretive Data: The [employer] LightCycler MRSA assay is a qualitative test for the direct detection of nasal colonization with methicillin-resistant Staphylococcus aureus (MRSA) to aid - SEROLOGY in the prevention and control of MRSA infections in healthcare settings. A positive result does not indicate an infection or require treatment. A negative result does not exclude colonization or infection. [facility] (07/22/2012 10:00:00) The polymerase chain reaction (PCR) assay detects a proprietary sequence indicative of the integration of the SCCmec cassette into the Staphylococcus aureus chromosome, indicating the presence of MRSA D NA. The assay utilizes FDA cleared IVD reagents. Performance characteristics have been verified by the [facility] within the [facility]. The [facility] atory is authorized under the Clinical Laboratory Improvement Amendment of 1988 (CLIA-88) to perform high complexity testing. CHEMISTRY BNP 178 pg/mL <=100 07/22 HI 12Interpretive Data: Elevated results are in line with increasing severity of congestive heart failure. Minor elevations between 100 and 300 [place] may be seen with Myocardial Ischemia, Sodium retaining drugs, and compensated/treated heart failure. CHEMISTRY Troponin-I null 0.00 - 07/22 Normal 0.40 [facility] CHEMISTRY CK MB 0.8 ng/mL 0.5 - 3.6 07/22 Normal MH [facility] CHEMISTRY Magnesium 1.9 mg/dL 1.8 - 2.4 07/22 Normal Lvl /2011 [place] HEMATOLOGY PTT 23.5 s 22.9 - 07/22 Normal 14Interpretiv 35.8 /2012 e Data: [facility] Heparin Therapeutic Range: 57 - 92 Seconds HEMATOLOGY INR 0.98 0.85 - 07/22 Normal 13Interpretive Data: RECOMMENDED RANGES FOR PROTIME INR: 1. 2.0-3.0 for most medical and surgical thromboembolic states. [place] 2.5-3.5 for artificial heart valves and recurrent embolism. INR SHOULD BE USED ONLY FOR PATIENTS ON STABLE ANTICOAGULANT THERAPY. HEMATOLOGY PT 13.2 s 12.0 - 12/15 Normal 14.7 /2012 [facility] Vital Signs Vital Sign Value Date Comments [facility] Systolic (mm Hg) 174 02/22/2017 [facility] Diastolic (mm Hg) 98 02/22/2017 [facility] Respitory Rate 20 02/22/2017 [facility] Systolic (mm Hg) 160 02/22/2017 [facility] Diastolic (mm Hg) 84 02/22/2017 [facility] Respitory Rate 18 02/22/2017 [facility] Respitory Rate 14 02/22/2017 [facility] Systolic (mm Hg) 164 02/22/2017 [facility] Diastolic (mm Hg) 64 02/22/2017 [facility] Heart Rate 57 02/15/2017 [facility] BMI Calculated 28.59 02/15/2017 [facility] Weight 68.636 02/15/2017 [facility] Height 154.94 cm 02/15/2017 [facility] Systolic (mm Hg) 168 08/24/2016 [facility] Diastolic (mm Hg) 76 08/24/2016 [facility] Respitory Rate 17 08/24/2016 [facility] Respitory Rate 14 08/24/2016 [facility] Systolic (mm Hg) 172 08/24/2016 [facility] Diastolic (mm Hg) 82 08/24/2016 [facility] Systolic (mm Hg) 142 08/24/2016 [facility] Diastolic (mm Hg) 67 08/24/2016 [facility] Respitory Rate 15 08/24/2016 [facility] Height 154.94 cm 08/17/2016 [facility] BMI Calculated 32.19 08/17/2016 [facility] Weight 77.273 08/17/2016 [facility] Heart Rate 72 08/17/2016 [facility] Temperature Oral (F) 99.7 F 08/17/2016 [facility] Weight 80.455 11/19/2013 [facility] Height 154.94 cm 11/19/2013 [facility] Systolic (mm Hg) 126 06/25/2013 [facility] Diastolic (mm Hg) 64 06/25/2013 [facility] Respitory Rate 18 06/25/2013 [facility] Respitory Rate 16 06/25/2013 [facility] Systolic (mm Hg) 133 06/25/2013 [facility] Diastolic (mm Hg) 67 06/25/2013 [facility] Diastolic (mm Hg) 65 06/25/2013 [facility] Systolic (mm Hg) 124 06/25/2013 [facility] [place] Respitory Rate 16 06/25/2013 [facility] Weight 80.909 06/20/2013 [facility] Height 154.94 cm 06/20/2013 [facility] Temperature Oral (F) 97.7 F 07/28/2012 [facility] Heart Rate 78 07/28/2012 [facility] Systolic (mm Hg) 138 07/28/2012 [facility] Diastolic (mm Hg) 76 07/28/2012 [facility] Respitory Rate 18 07/28/2012 [facility] Systolic (mm Hg) 153 07/28/2012 [facility] Diastolic (mm Hg) 78 07/28/2012 [facility] Heart Rate 84 07/28/2012 [facility] Temperature Oral (F) 97.3 F 07/28/2012 [facility] Respitory Rate 18 07/28/2012 [facility] Respitory Rate 18 07/28/2012 [facility] Temperature Oral (F) 97.2 F 07/28/2012 [facility] Heart Rate 77 07/28/2012 [facility] Diastolic (mm Hg) 75 07/28/2012 [facility] Systolic (mm Hg) 149 07/28/2012 [facility] Weight 81.818 07/22/2012 [facility] Height 154.94 cm 07/22/2012 [facility] Height 154.94 cm 07/22/2012 [facility] Weight 81.818 07/22/2012 [facility] Encounters Location Location Encounter Encounter Reason Attending ADM DC Status Source Details Type Number For Provider Date Date Visit Inpatient [id number] ABHILASH FISHER 07/21 07/28 Active [facility] /2011 [facility] [id number] EDWARDO 06/25 06/25 Active [facility] MECCAAR /2012 [facility] Outpatient [id number] _MAPID: Edwardo 10/24 10/25 [facility] [id number] [facility] Aisha /2013 [facility] [id number] Hospital [address] [facility] Outpatient [id number] Edwardo 11/19 11/20 [facility] Aisha /2013 [facility] Outpatient [id number] Alis 12/25 12/26 [facility] Margareth /2013 [facility] Outpatient [id number] Alis 10/21 10/22 [facility] Margareth /2015 [facility] Bedded [id number] Edwardo 08/24 08/24 [facility] [place] [facility] Inamdar /2016 [facility] Bedded [id number] Edwardo 02/22 02/22 [place] [facility] Inamdar /2016 [facility] Outpatient [id number] Redd 12/05 12/05 [facility] Outpatient [id number] Redd 01/28 01[facility] [id number] NAUSEA EDWARDO Active [facility] 787.02 INANEAR [facility] /789.01 ABD PAIN RUQ Procedures Procedure Code Date Perfomer Comments Source Bilateral replacement [id number] [facility] of hip joints 8 Bilateral replacement [id number] [facility] of hip joints 8 Bilateral replacement [id number] [facility] of hip joints 8 Hysterectomy [id number] [facility] 5 Hysterectomy [id number] [facility] 5 Hysterectomy [id number] [facility] 5 Suprapubic sling [id number] [facility] operation 0 Suspension of bladder [id number] [facility] 0 Suprapubic sling [id number] [facility] operation 0 Suspension of bladder [id number] [facility] 0 Suprapubic sling [id number] [facility] operation 0 Suspension of bladder [id number] [facility] 0 Hemorrhoidectomy [id number] [facility] 9 Hemorrhoidectomy [id number] [facility] 9 Hemorrhoidectomy [id number] [facility] 9 Tonsillectomy [id number] [facility] Appendectomy [id number] [facility] Colonoscopy [id number] [facility] Insertion of [id number] [facility] implantable intrathecal pump Tonsillectomy [id number] [facility] [id number] [facility] Colonoscopy [id number] [facility] Insertion of [id number] [facility] implantable intrathecal pump Tonsillectomy [id number] [facility]
--- OUTSIDE RECORDS SUMMARY | 2018-03-31 12:44 | XMS REPORT | Summary of Care ---
:1955 Author Organization [facility] Address [address] [place], [place] [address]- Encounter HQ Encntr_efe(FIN) [id number] Date(s): 12/04/17 - 12/04/17 [facility] [address] [place] [address]- Discharge Disposition: Home or Self Care Attending Physician: Redd Junior MD Admitting Physician: Redd Junior MD Referring Physician: Redd Junior MD Vital Signs No data available for this section Problem List Condition Effective Dates Status Health Status Informant Anemia(Confirmed) Resolved Anxiety(Confirmed) Active COPD (chronic obstructive pulmonary Active disease)(Confirmed) Constipation(Confirmed) Resolved BiPAP (biphasic positive airway Active pressure) dependence(Confirmed) Diabetes(Confirmed) Active Dyspnea on exertion(Confirmed) Active Fibromyalgia(Confirmed) Active Generalized abdominal pain1 01/22/09 Active GERD - Gastro-esophageal reflux Active disease(Confirmed) Hyperlipidemia(Confirmed) Active Hypertension(Confirmed) Active Lupus(Confirmed) Active Neuropathy(Confirmed) Active Bilateral leg weakness(Confirmed) Active PE - Pulmonary embolism(Confirmed)2 Resolved PE - Pulmonary embolism(Confirmed) Active Colon polyp(Confirmed) Resolved Sciatic nerve pain(Confirmed) Active Lupus(Confirmed) Active Sleep apnea(Confirmed) Active 1Data migrated from [employer] on 01/07/15.86486 after surgry decompression rt thigh Allergies, Adverse Reactions, Alerts Substance Reaction Severity Status codeine1 Nausea and vomiting Active 1Data migrated from [employer] on 10/08/15. Originally documented as CODEINE. Gastrointestinal problems, e.g., nausea, vomiting, diarrhea Medications No data available for this section Results No data available for this section Immunizations No data available for this section Procedures Procedure Date Related Diagnosis Body Site Status Bilateral replacement of hip joints 08/08/97 Completed Hysterectomy 08/08/94 Completed Suprapubic sling operation 08/08/69 Completed Suspension of bladder 08/08/69 Completed Hemorrhoidectomy 08/08/68 Completed Appendectomy Completed Colonoscopy Completed Insertion of implantable intrathecal Completed pump Tonsillectomy Completed Social History Social History Type Response Substance Abuse Use: None. Alcohol Never Smoking Status Never smoker; Exposure to Tobacco Smoke None; Cigarette Smoking Last 365 Days No; Reg Smoking Cessation Counseling No entered on: 02/22/17 Assessment and Plan No data available for this section
--- OUTSIDE RECORDS SUMMARY | 2018-03-31 12:44 | XMS REPORT | Summary of Care ---
:1955 Author Organization [facility] Address [address] [place], [place] [address]- Encounter HQ Encntr_alibennie(FIN) [id number] Date(s): 12/04/17 - 12/04/17 [facility] [address] [place] [address]- Discharge Disposition: Home or Self Care Attending [...] Active 1Data migrated from [employer] on 01/07/15.31787 after surgry decompression rt thigh Allergies, Adverse [...]
--- OUTSIDE RECORDS SUMMARY | 2018-03-31 12:44 | XMS REPORT | Summary of Care ---
:1955 Author Organization [facility] Address [address] [place], [place] [address]- Encounter HQ Mikentr_efe(FIN) [id number] Date(s): 01/27/18 - 01/27/18 [facility] [address] [place] [address]- Discharge Disposition: Home or Self Care Attending Physician: Redd Junior MD Referring Physician: Redd [...] Active 1Data migrated from [employer] on 01/07/15.96621 after surgry decompression rt thigh Allergies, Adverse [...]
--- OUTSIDE RECORDS SUMMARY | 2018-03-31 12:44 | XMS REPORT | Summary of Care ---
:1955 Author Organization [facility] [place] Address [address] [place], [place] [address]- Encounter HQ Mikentr_efe(FIN) [id number] Date(s): 12/04/17 - 12/04/17 [facility] [place] [address] [place] [address]- Encounter Diagnosis Obstructive sleep apnea (adult) (pediatric) (Final) - Discharge Disposition: Home or Self Care Attending [...] Active 1Data migrated from [employer] on 01/07/15.47120 after surgry decompression rt thigh Allergies, Adverse [...]
--- OUTSIDE RECORDS SUMMARY | 2018-03-31 12:44 | XMS REPORT | Summary of Care ---
:1955 Author Organization [facility] Address [address] [place] [address]- Encounter HQ Madeleiner_efe(FIN) [id number] Date(s): 02/22/17 - 02/22/17 [facility] [address] [place] [phone] Discharge Disposition: Home or Self Care Attending Physician: Edwardo Leonard MD Referring Physician: Edwardo Leonard MD Vital Signs Most recent to oldest 1 2 3 [Reference Range]: Height 154.94 cm (02/15/17 11:10 AM) Blood Pressure [90-140/60-90 174/98 mmHg 160/84 mmHg 164/64 mmHg mmHg] *HI* *HI* *HI* (02/22/17 8:50 AM) (02/22/17 8:40 AM) (02/22/17 8:30 AM) Respiratory Rate [14-20 BRMIN] 20 BRMIN 18 BRMIN 14 BRMIN (02/22/17 8:50 AM) (02/22/17 8:40 AM) (02/22/17 8:30 AM) Peripheral Pulse Rate [60-100 57 bpm bpm] *LOW* (02/15/17 11:52 AM) Weight 68.636 kg (02/15/17 11:10 AM) Body Mass Index 28.59 m2 (02/15/17 11:10 AM) Problem List Condition Effective Dates Status Health Status Informant Anemia(Confirmed) Resolved Anxiety(Confirmed) Active COPD (chronic obstructive pulmonary Active disease)(Confirmed) Constipation(Confirmed) Resolved BiPAP (biphasic positive airway Active pressure) dependence(Confirmed) Depression(Confirmed) Active Diabetes(Confirmed) Active Dyspnea on exertion(Confirmed) Active Fibromyalgia(Confirmed) Active Generalized abdominal pain1 01/22/09 Active GERD - Gastro-esophageal reflux Active disease(Confirmed) Hyperlipidemia(Confirmed) Active Hypertension(Confirmed) Active Lupus(Confirmed) Active Neuropathy(Confirmed) Active Bilateral leg weakness(Confirmed) Active PE - Pulmonary embolism(Confirmed)2 Resolved PE - Pulmonary embolism(Confirmed) Active Colon polyp(Confirmed) Resolved Sciatic nerve pain(Confirmed) Active Lupus(Confirmed) Active Sleep apnea(Confirmed) Active 1Data migrated from [employer] on 01/07/15.66017 after surgry decompression rt thigh Allergies, Adverse Reactions, Alerts Substance Reaction Severity Status codeine1 Nausea and vomiting Active 1Data migrated from [employer] on 10/08/15. Originally documented as CODEINE. Gastrointestinal problems, e.g., nausea, vomiting, diarrhea Medications Alpha Lipoic Acid 600 mg oral capsule PO, Daily, 0 Refill(s) Start Date: 02/15/17 Status: OrderedCulturelle Digestive Health oral capsule 1 cap, PO, Daily, 0 Refill(s) Start Date: 02/15/17 Status: Orderedipratropium nasal 0.03% spray 2 spray, Each Affected Nostril, BID, # 30 ml, 0 Refill(s) Start Date: 02/15/17 Stop Date: 02/22/17 Status: OrderedPrialt 100 mcg/mL intrathecal solution See Instructions, 500mcg INTRATHECAL, 0 Refill(s) Start Date: 02/15/17 Status: Orderedsodium chloride 0.9% 1000 ml INJ 1,000 mL 1,000 mL, Rate: 21 ml/hr, Infuse over: 47.6 hr, Route: IV, Dosing Weight 68.636 kg, Total Volume: 1,000, Start date: 02/22/17 6:27:00 CDT, Duration: 30 day, Stop date: 03/24/17 6:26:00 CDT Start Date: 02/22/17 Stop Date: 02/22/17 Status: DiscontinuedZanaflex 4 mg oral tablet 4 mg=1 tab, PO, Q8H, PRN for muscle spasms, # 90 tab, 0 Refill(s) Start Date: 02/15/17 Status: Ordered Results ELECTROLYTES Most recent to oldest [Reference Range]: 1 Sodium Lvl [135-145 mEq/L] 145 mEq/L (02/15/1716 AM) Potassium Lvl [3.5-5.1 mEq/L] 4.0 mEq/L (02/15/17:16 AM) Chloride Lvl [95-109 mEq/L] 108 mEq/L (02/15/1716 AM) CO2 [24-32 mEq/L] 35 mEq/L *HI* (02/15/17 AM) AGAP [10.0-20.0 mEq/L] 6.0 mEq/L *LOW* (02/15/1716 AM) CHEM PANEL Most recent to oldest [Reference Range]: 1 Creatinine Lvl [0.50-1.40 mg/dL] 0.74 mg/dL (02/15/17 AM) eGFR 87 mL/min/1.73m2 1 *NA* (02/15/17 AM) BUN [7-22 mg/dL] 16 mg/dL (02/15/17 AM) Glucose Lvl [70-99 mg/dL] 84 mg/dL (02/15/17 AM) Calcium Lvl [8.5-10.5 mg/dL] 8.5 mg/dL (02/15/17:16 AM) 1Result Comment: The eGFR is calculated using the CKD-EPI formula. In most young , healthy individualsthe eGFR will be >90 mL/min/1.73m2. The eGFR declines with age. An eGFR of 60-89 may be normal in some populations, particularly the elderly, for whom the CKD-EPI formula has not been extensively validated. Use of the eGFR is not recommended in the following populations: Individuals with unstable creatinine concentrations, including patients and those with serious co-morbid conditions. Patients with extremes in muscle mass or diet. The data above are obtained from the National Kidney Disease Education Program ( NKDEP) which additionally recommends that when the eGFR is used in patients with extremes of body mass index for purposesof drug dosing, the eGFR should be multiplied by the estimated BMI.SPECIAL CHEMISTRY Most recent to oldest [Reference Range]: 1 Hgb A1C [<=5.6 %] 5.9 % *HI* (02/15/17 11:16 AM) Immunizations No data available for this section Procedures Procedure Date Related Diagnosis Body Site Bilateral replacement of hip joints 08/08/97 Hysterectomy 08/08/94 Suprapubic sling operation 08/08/69 Suspension of bladder 08/08/69 Hemorrhoidectomy 08/08/68 Appendectomy Colonoscopy Insertion of implantable intrathecal pump Tonsillectomy Social History Social History Type Response Substance Abuse Use: None. Alcohol Never Smoking Status Never smoker; Exposure to Tobacco Smoke None; Cigarette Smoking Last 365 Days No; Reg Smoking Cessation Counseling No Assessment and Plan No data available for this section
--- OUTSIDE RECORDS SUMMARY | 2018-03-31 12:45 | XMS REPORT | Summary of Care ---
:1955 Author Care Team Providers Name Role Phone Stevan Alarcon Primary Care Physician Unavailable Encounter Dates Location Diagnoses Discharge Disposition Providers 10/24/2013 - [facility] Home Inamdar, Edwardo V 10/24/2013 [address] [place] Inamdar, Edwardo V [address] Reason for Visit 787.302=CHRONIC NAUSEA/530.81=ACID REFLUX/562.10=COLONI Problem List Condition Effective Dates Status Health Status Informant Anemia(Confirmed) Resolved Constipation(Confirmed) Active copd(Confirmed) Active Depression(Confirmed) Active diabetes(Confirmed) Active Emphysema(Confirmed) Active exerstemia(Confirmed) Active Fibromyalgia(Confirmed) Active GERD - Gastro-esophageal reflux Active disease(Confirmed) htn(Confirmed) Active hyperlipidemia(Confirmed) Active hypothyroidism(Confirmed) Active Lupus(Confirmed) Active Neuropathy(Confirmed) Active PE - Pulmonary embolism(Confirmed)1 Resolved PE - Pulmonary embolism(Confirmed) Active Sleep apnea(Confirmed) Active 26332 after surgry decompression rt thigh Allergies, Adverse Reactions, Alerts Substance Reaction Severity Status codeine Active Medications No data available for this section Medications Administered During Your Visit No data available for this section Immunizations No data available for this section Social History Social History Type Response
--- OUTSIDE RECORDS SUMMARY | 2018-03-31 12:45 | XMS REPORT | CCD ---
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 Medications Medication Instructions Start Date End Date Status Mucinex DM 1 tab, PO, Q12H, 07/21/2012 Ordered Substitution Allowed, Maintenance MiraLax 17 gm, 1 pkt, 07/22/2012 07/28/2012 Discontinued Route: PO, Drug form: PWDR, Bedtime, Dosing Weight 81.818, kg, Start date: 07/22/12 21:00:00, Duration: 30 day, Stop date: 08/20/12 21:00:00 Caltrate 600 Plus Route: PO, Dosing 07/22/2012 07/22/2012 Deleted Weight 81.818, kg, Daily, Start date: 07/22/12 9:00:00, Duration: 30 day, Stop date: 08/20/12 9:00:00 calcium-vitamin D 500 1 tab, Route: PO, 07/22/2012 07/28/2012 Discontinued mg-200 intl units oral Drug Form: TAB, tablet Daily, Start date: 07/22/12 9:00:00, Duration: 30 day, Stop date: 08/20/12 9:00:00 levothyroxine 25 microgram, 1 07/22/2012 07/28/2012 Discontinued tab, Route: PO, Drug form: TAB, [id number], Dosing Weight 81.818, kg, Start date: 07/22/12 6:30:00, Duration: 30 day, Stop date: 08/20/12 6:30:00 lidocaine topical 0.5% 1 appl, Route: TOP, 07/22/2012 07/22/2012 Deleted gel Drug Form: GEL, Dosing Weight 81.818, kg, TID, Start date: 07/22/12 9:00:00, Duration: 30 day, Stop date: 08/20/12 17:00:00 Vitamin B-12 1000 mcg 1,000 microgram, 1 07/21/2012 Ordered oral tablet tab, PO, Daily, 30 tab, Substitution Allowed, TAB Ativan 1 mg, 1 tab, Route: 07/21/2012 07/28/2012 Discontinued PO, Drug form: TAB, Q4H, Dosing Weight 81.818, kg, PRN as needed for anxiety, Start date: 07/21/12 23:41:00, Duration: 30 day, Stop date: 08/20/12 23:40:00 amlodipine-olmesartan 5 1 tab, Route: PO, 07/22/2012 07/22/2012 Deleted mg-40 mg oral tablet Dosing Weight 81.818, kg, Daily, Start date: 07/22/12 9:00:00, Duration: 30 day, Stop date: 08/20/12 9:00:00 esomeprazole 40 mg, Route: PO, 07/22/2012 07/22/2012 Deleted Drug form: ECCAP, Daily, Dosing Weight 81.818, kg, Start date: 07/22/12 9:00:00, Duration: 30 day, Stop date: 08/20/12 9:00:00 folic acid 1 mg, 1 tab, Route: 07/22/2012 07/28/2012 Discontinued PO, Drug form: TAB, Daily, Dosing Weight 81.818, kg, Start date: 07/22/12 9:00:00, Duration: 30 day, Stop date: 08/20/12 9:00:00 Neurontin 300 mg oral 300 mg, 1 cap, 07/22/2012 07/28/2012 Discontinued capsule Route: PO, Drug form: CAP, Q8H, Dosing Weight 81.818, kg, Start date: 07/22/12 8:00:00, Duration: 30 day, Stop date: 08/21/12 0:00:00 Cymbalta 60 mg, 2 cap, 07/22/2012 07/28/2012 Discontinued Route: PO, Drug form: DRC, Daily, Dosing Weight 81.818, kg, Start date: 07/22/12 9:00:00, Duration: 30 day, Stop date: 08/20/12 9:00:00 Evoxac 30 mg, 1 cap, 07/22/2012 07/28/2012 Discontinued Route: PO, Drug form: CAP, TID, Dosing Weight 81.818, kg, Start date: 07/22/12 9:00:00, Duration: 30 day, Stop date: 08/20/12 17:00:00 clonidine 0.1 mg oral 0.1 mg, 1 tab, 07/21/2012 07/21/2012 Discontinued tablet Route: PO, Drug form: TAB, Q6H, PRN Other -See Comment, Start date: 07/21/12 22:11:00, Duration: 30 day, Stop date: 08/20/12 22:10:00 Benicar 40 mg, 2 tab, 07/22/2012 07/28/2012 Discontinued Route: PO, Drug form: TAB, Daily, Start date: 07/22/12 9:00:00, Duration: 30 day, Stop date: 08/20/12 9:00:00 NovoLog 15 unit, 0.15 mL, 07/22/2012 07/28/2012 Discontinued Route: SUB-Q, Drug form: SOLN, TID-Before Meals, Dosing Weight 81.818, kg, Start date: 07/22/12 11:30:00, Stop date: 08/21/12 7:30:00 hydrALAZINE 20 mg, 1 mL, Route: 07/21/2012 07/28/2012 Discontinued IV, Drug form: INJ, Q6H, PRN Other -See Comment, Start date: 07/21/12 22:10:00, Duration: 30 day, Stop date: 08/20/12 22:09:00 dextromethorphan-guaifene 1 tab, Route: PO, 07/22/2012 07/22/2012 Voided With Results sin Drug Form: ERTAB, BID, Start date: 07/22/12 9:00:00, Duration: 30 day, Stop date: 08/20/12 17:00:00 nitroglycerin 0.4 mg 0.4 mg, 1 tab, 07/25/2012 07/28/2012 Discontinued sublingual tablet Route: SL, Drug form: TAB, Q5Min, PRN Chest Pain, Start date: 07/25/12 1:25:00, Duration: 30 day, Stop date: 08/24/12 1:24:00 atropine 0.5 mg, 5 mL, 07/25/2012 07/28/2012 Discontinued Route: IVP, Drug form: INJ, PRN, PRN Bradycardia, Start date: 07/25/12 1:25:00, Duration: 30 day, Stop date: 08/24/12 1:24:00 Tylenol 650 mg, 2 tab, 07/21/2012 07/28/2012 Discontinued Route: PO, Drug form: TAB, Q6H, PRN Pain/Fever, Start date: 07/21/12 22:10:00, Duration: 30 day, Stop date: 08/20/12 22:09:00 Norvasc 5 mg, 1 tab, Route: 07/22/2012 07/28/2012 Discontinued PO, Drug form: TAB, Daily, Start date: 07/22/12 9:00:00, Duration: 30 day, Stop date: 08/20/12 9:00:00 Zofran 4 mg, 2 mL, Route: 07/21/2012 07/28/2012 Discontinued IVP, Drug form: INJ, Q4H, PRN Nausea, Start date: 07/21/12 22:10:00, Duration: 30 day, Stop date: 08/20/12 22:09:00 Ambien 5 mg, 1 tab, Route: 07/21/2012 07/28/2012 Discontinued PO, Drug form: TAB, Bedtime, PRN Sleep, Start date: 07/21/12 22:09:00, Duration: 30 day, Stop date: 08/20/12 22:08:00 morphine Sulfate 4 mg, 2 mL, Route: 07/21/2012 07/28/2012 Discontinued IV, Drug form: INJ, Q4H, PRN Pain, Start date: 07/21/12 22:09:00, Duration: 30 day, Stop date: 08/20/12 22:08:00 Dextrose 50% in Water IV 50 mL, Route: IVP, 07/21/2012 07/28/2012 Discontinued Start date: 07/21/12 22:31:00, Duration: 30 day, Stop date: 08/20/12 22:30:00, PRN Blood Glucose Results glucagon 1 mg, Route: IM, 07/21/2012 07/28/2012 Discontinued Drug form: PDR/INJ, PRN, PRN Blood Glucose Results, Start date: 07/21/12 22:31:00, Duration: 30 day, Stop date: 08/20/12 22:30:00 NovoLog FlexPen 18 unit, 0.18 mL, 07/21/2012 07/28/2012 Discontinued Route: SUB-Q, Drug form: SOLN, Sliding Scale, PRN Blood Glucose Results, Start date: 07/21/12 22:30:00, Duration: 30 day, Stop date: 08/20/12 22:29:00 NovoLog FlexPen 15 unit, 0.15 mL, 07/21/2012 07/28/2012 Discontinued Route: SUB-Q, Drug form: SOLN, Sliding Scale, PRN Blood Glucose Results, Start date: 07/21/12 22:30:00, Duration: 30 day, Stop date: 08/20/12 22:29:00 NovoLog FlexPen 9 unit, 0.09 mL, 07/21/2012 07/28/2012 Discontinued Route: SUB-Q, Drug form: SOLN, Sliding Scale, PRN Blood Glucose Results, Start date: 07/21/12 22:30:00, Duration: 30 day, Stop date: 08/20/12 22:29:00 NovoLog FlexPen 12 unit, 0.12 mL, 07/21/2012 07/28/2012 Discontinued Route: SUB-Q, Drug form: SOLN, Sliding Scale, PRN Blood Glucose Results, Start date: 07/21/12 22:30:00, Duration: 30 day, Stop date: 08/20/12 22:29:00 NovoLog FlexPen 6 unit, 0.06 mL, 07/21/2012 07/28/2012 Discontinued Route: SUB-Q, Drug form: SOLN, Sliding Scale, PRN Blood Glucose Results, Start date: 07/21/12 22:30:00, Duration: 30 day, Stop date: 08/20/12 22:29:00 NovoLog FlexPen 3 unit, 0.03 mL, 07/21/2012 07/28/2012 Discontinued Route: SUB-Q, Drug form: SOLN, Sliding Scale, PRN Blood Glucose Results, Start date: 07/21/12 22:30:00, Duration: 30 day, Stop date: 08/20/12 22:29:00 SoluMedrol 20 mg, 0.5 mL, 07/23/2012 07/28/2012 Discontinued Route: IVP, Drug form: INJ, Q12H, Dosing Weight 81.818, kg, Start date: 07/23/12 21:00:00, Stop date: 08/22/12 9:00:00 Levemir 12 unit, 0.12 mL, 07/23/2012 07/28/2012 Discontinued Route: SUB-Q, Drug form: INJ, Bedtime, Dosing Weight 81.818, kg, Start date: 07/23/12 21:00:00, Duration: 30 day, Stop date: 08/21/12 21:00:00 DuoNeb inhalation 3 ml, INHALATION, 07/28/2012 Ordered solution Q6H, PRN, 60 ea, as needed for shortness of breath or wheezing, Substitution Allowed, Maintenance, SOLN Levaquin 500 mg oral 500 mg, 1 tab, PO, 07/28/2012 08/04/2012 Ordered tablet Q24H, 7 tab, Substitution Allowed Ativan 1.5 mg, 1.5 tab, 07/22/2012 07/28/2012 Discontinued Route: PO, Drug form: TAB, Q4H, PRN Anxiety, Start date: 07/22/12 4:20:00, Duration: 30 day, Stop date: 08/21/12 4:19:00 predniSONE taper weekly See Instructions, Substitution Allowed, 20 mg PO daily for 3 days then 10 mg PO daily for 3 days then 5 mg PO daily for 3 days then d/c 07/28/2012 Ordered 20 mg PO daily for 3 days then 10 mg PO daily for 3 days then 5 mg PO daily for 3 days then d/c Nebulizer 1 ea, MISC, ONCALL, 07/28/2012 Ordered 1 ea, Substitution Allowed, Maintenance Kayexalate 30 gm, 120 mL, 07/27/2012 07/27/2012 Completed Route: PO, Drug form: SUSP, ONCE, Dosing Weight 81.818, kg, Start date: 07/27/12 15:21:00, Stop date: 07/27/12 15:21:00 Protonix 40 mg, 1 tab, 07/22/2012 07/28/2012 Discontinued Route: PO, Drug form: ECTAB, Before Dinner, Start date: 07/22/12 16:30:00, Duration: 30 day, Stop date: 08/20/12 16:30:00 Phenergan 25 mg oral 50 mg, 2 tab, PO, 07/21/2012 Ordered tablet Q4H, PRN, 15 tab, Nausea, Substitution Allowed Jackson 10/325 oral tablet 1-2 tab, PO, TID, 07/21/2012 07/26/2012 Ordered PRN, 30 tab, as needed for pain, Substitution Allowed, Maintenance Ativan 1 mg oral tablet 1-1.5 tab, PO, Q4H, 07/21/2012 Ordered PRN, 20 tab, as needed for anxiety, Substitution Allowed lidocaine topical 0.5% 1 appl, TOP, TID, 07/21/2012 Ordered gel 120 gm, Substitution Allowed, Maintenance, GEL Lancets 1 box, MISC, Daily, 07/28/2012 Ordered 1 box, Substitution Allowed, Maintenance DuoNeb inhalation 3 mL, Route: NEB, 07/21/2012 07/28/2012 Discontinued solution Drug Form: SOLN, RQ2H, PRN Shortness of breath, Start date: 07/21/12 22:12:00, Duration: 30 day, Stop date: 08/20/12 22:11:00 multivitamin Substitution 07/21/2012 Ordered Allowed, Maintenance Zocor 40 mg oral tablet 40 mg, 1 tab, PO, 07/21/2012 08/20/2012 Ordered Daily, 30 tab, Substitution Allowed, Maintenance Neurontin 300 mg oral 300 mg, 1 cap, PO, 07/21/2012 Ordered capsule TID, 90 cap, Substitution Allowed levothyroxine 25 mcg 25 microgram, 1 07/21/2012 Ordered (0.025 mg) oral tablet tab, PO, Daily, 30 tab, Substitution Allowed, TAB Caltrate 600 Plus Substitution 07/21/2012 Ordered Allowed, Maintenance potassium chloride 10 mEq 10 mEq, 1 tab, PO, 07/21/2012 07/28/2012 Discontinued oral tablet, extended BID, 10 tab, release Substitution Allowed Ziac 10 mg-6.25 mg oral 1 tab, PO, Daily, 07/21/2012 Ordered tablet 30 tab, Substitution Allowed, Maintenance, TAB Blood Glucose Test Strips 1 box, MISC, 07/28/2012 Ordered BID-Before Meals, 100 strip, Substitution Allowed, Maintenance Blood Glucose Monitor 1 ea, MISC, Daily, Use as directed., 1 ea, Substitution Allowed, Maintenance 07/28/2012 Ordered Use as directed. DuoNeb inhalation 3 mL, Route: NEB, 07/21/2012 07/28/2012 Discontinued solution Drug Form: KENDALL, [id number], Start date: 07/21/12 23:00:00, Duration: 30 day, Stop date: 08/20/12 19:00:00 methylPREDNISolone 60 mg, 0.96 mL, 07/22/2012 07/23/2012 Discontinued Route: IV, Drug form: INJ, Q8H, Start date: 07/22/12 0:00:00, Duration: 30 day, Stop date: 08/20/12 16:00:00 Zanaflex 4 mg oral 4 mg, 1 cap, PO, 07/21/2012 Ordered capsule TID, 90 cap, Substitution Allowed, CAP Levaquin 750 mg, 150 mL, 07/21/2012 07/21/2012 Discontinued Route: IV, Drug form: SOLN, [id number], Start date: 07/21/12 23:00:00, Duration: 30 day, Stop date: 08/19/12 23:00:00 predniSONE 5 mg oral 5 mg, 1 tab, PO, 07/21/2012 07/28/2012 Discontinued tablet Daily, 7 tab, Substitution Allowed, TAB Nexium 40 mg oral delayed 40 mg, 1 cap, PO, 07/21/2012 Ordered release capsule Daily, Substitution Allowed Diflucan 200 mg, 2 tab, 07/23/2012 07/27/2012 Completed Route: PO, Drug form: TAB, [id number], Dosing Weight 81.818, kg, Start date: 07/23/12 8:00:00, Duration: 5 day, Stop date: 07/27/12 8:00:00 nystatin 100,000 units/mL 500,000 unit, 5 mL, 07/23/2012 07/28/2012 Discontinued oral suspension Route: S&SWALLOW, Drug form: SUSP, QID, Dosing Weight 81.818, kg, Start date: 07/23/12 9:00:00, Duration: 7 day, Stop date: 07/29/12 21:00:00 Dilaudid 1 mg, 1 mL, Route: 07/24/2012 07/28/2012 Discontinued IV, Drug form: SOLN, Q3H, Dosing Weight 81.818, kg, PRN Pain Score 4-6, Start date: 07/24/12 10:46:00, Duration: 30 day, Stop date: 08/23/12 10:45:00 Zithromax 500 mg oral 250 mg, 1 tab, 07/22/2012 07/28/2012 Discontinued tablet Route: PO, Drug form: TAB, Daily, Dosing Weight 81.818, kg, Start date: 07/22/12 9:00:00, Duration: 30 day, Stop date: 08/20/12 9:00:00 Rocephin + Sodium 1 gm, Route: IVPB, 07/22/2012 07/28/2012 Discontinued Chloride 0.9% IV 100 mL [id number], Dosing Weight 81.818, kg, Start date: 07/22/12 0:00:00, Duration: 30 day, Stop date: 08/20/12 0:00:00 Fleet Enema 133 ml, Route: NJ, 07/23/2012 07/23/2012 Deleted Drug Form: KRISTIE, Dosing Weight 81.818, kg, ONCE, Start date: 07/23/12 7:42:00, Stop date: 07/23/12 7:42:00 Mucinex DM 1 tab, Route: PO, 07/22/2012 07/22/2012 Deleted Drug Form: ERTAB, Dosing Weight 81.818, kg, Q12H, Start date: 07/22/12 9:00:00, Duration: 30 day, Stop date: 08/20/12 21:00:00 cyanocobalamin 1,000 microgram, 2 07/22/2012 07/28/2012 Discontinued tab, Route: PO, Drug form: TAB, Daily, Dosing Weight 81.818, kg, Start date: 07/22/12 9:00:00, Duration: 30 day, Stop date: 08/20/12 9:00:00 RN pls bring pt's own med RN pls bring pt's 07/22/2012 07/25/2012 Completed 'Lidocaine 0.5%gel' to own med 'Lidocaine Rph 0.5%gel' to Rph, 1 attn, Drug form: MISC, Route: MISC, QSHIFT, 07/22/12 6:00:00, Duration: 3 day, Stop date: 07/25/12 0:00:00 folic acid 1 mg oral 1 mg, 1 tab, PO, 07/21/2012 Ordered tablet Daily, 30 tab, Substitution Allowed, TAB enoxaparin 40 mg, 0.4 mL, 07/22/2012 07/28/2012 Discontinued Route: SUB-Q, Drug form: INJ, [id number], Dosing Weight 81.818, kg, Start date: 07/22/12 0:00:00, Duration: 30 day, Stop date: 08/20/12 0:00:00 Evoxac 30 mg oral capsule 30 mg, 1 cap, PO, 07/21/2012 Ordered TID, 270 cap, Substitution Allowed, CAP Mucinex DM 1 tab, Route: PO, 07/23/2012 07/28/2012 Discontinued Drug Form: ERTAB, Dosing Weight 81.818, kg, Q12H, Start date: 07/23/12 9:00:00, Duration: 30 day, Stop date: 08/21/12 21:00:00 Cymbalta 60 mg oral 60 mg, 1 cap, PO, 07/21/2012 Ordered delayed release capsule Daily, 30 cap, Substitution Allowed, ECCAP Lidocaine 0.5% Topical Lidocaine 0.5% 07/22/2012 07/28/2012 Discontinued Gel Pt's Own Med Topical Gel Pt's Own Med, 1 appl, Drug form: MISC, Route: TOP, TID, 07/22/12 9:00:00, Duration: 30 day, Stop date: 08/20/12 17:00:00 Coumadin 3 mg oral tablet 3 mg, 1 tab, PO, 07/21/2012 Ordered Daily, 30 tab, Substitution Allowed, TAB clonidine 0.1 mg oral 0.1 mg, PO, Daily, 07/21/2012 Ordered tablet PRN, 60 tab, anxiety, Substitution Allowed Carafate 1 g oral tablet 1 gm, 1 tab, PO, 07/21/2012 Ordered BID, 120 tab, Substitution Allowed clonidine 0.1 mg oral 0.1 mg, 1 tab, 07/22/2012 07/28/2012 Discontinued tablet Route: PO, Drug form: TAB, Q8H, Dosing Weight 81.818, kg, Start date: 07/22/12 8:00:00, Duration: 30 day, Stop date: 08/21/12 0:00:00 Benicar HCT 12.5 mg-40 mg 1 tab, PO, Daily, 07/21/2012 Ordered oral tablet 30 tab, Substitution Allowed, Maintenance, TAB MiraLax oral powder for 17 gm, PO, Bedtime, 07/21/2012 Ordered reconstitution 255 gm, Substitution Allowed, PDR/REC Zanaflex 4 mg, 1 tab, Route: 07/22/2012 07/28/2012 Discontinued PO, Drug form: TAB, TID, Dosing Weight 81.818, kg, Start date: 07/22/12 9:00:00, Duration: 30 day, Stop date: 08/20/12 17:00:00 Carafate 1 gm, 1 tab, Route: 07/22/2012 07/28/2012 Discontinued PO, Drug form: TAB, BID, Dosing Weight 81.818, kg, Start date: 07/22/12 9:00:00, Duration: 30 day, Stop date: 08/20/12 17:00:00 Vital Signs Most recent to oldest 1 2 3 [Reference Range]: Height 154.94 cm 154.94 cm (07/21/2012 22:02:00) (07/21/2012 21:56:00) Current Weight 88.200 kg (07/23/2012 06:37:00) Temperature Oral 97.7 DegF 97.3 DegF 97.2 DegF [96.4-99.1 DegF] (07/28/2012 16:00:00) (07/28/2012 12:00:00) (07/28/2012 08: 00:00) Systolic Blood Pressure 138 mmHg 153 mmHg 149 mmHg [90-140 mmHg] (07/28/2012 16:00:00) *HI* *HI* (07/28/2012 12:00:00) (07/28/2012 08:00:00) Diastolic Blood Pressure 76 mmHg 78 mmHg 75 mmHg [60-90 mmHg] (07/28/2012 16:00:00) (07/28/2012 12:00:00) (07/28/2012 08:00: 00) Respiratory Rate [14-20 18 BRMIN 18 BRMIN 18 BRMIN BRMIN] (07/28/2012 16:00:00) (07/28/2012 12:00:00) (07/28/2012 09:24:00) Peripheral Pulse Rate 78 bpm 84 bpm 77 bpm [60-100 bpm] (07/28/2012 16:00:00) (07/28/2012 12:00:00) (07/28/2012 08:00: 00) Weight 81.818 kg 81.818 kg (07/21/2012 22:02:00) (07/21/2012 21:56:00) Results BACTERIAL - SEROLOGY Most recent to oldest [Reference Range]: 1 2 3 MRSA by PCR Negative 1 (07/22/2012 10:00:00) 1Interpretive Data: Interpretive Data: The [employer] Light[employer] MRSA assay is a qualitative test for thedirect detection of nasal colonization with methicillin- resistant Staphylococcus aureus (MRSA) to aid in the prevention and control of MRSA infections in healthcare settings. A positive result does notindicate an infection or require treatment. A negative result does not exclude colonization or infection. The polymerase chain reaction (PCR) assay detects a proprietary sequence indicative of the integration of the SCCmec cassette into the Staphylococcus aureus chromosome, indicating the presence of MRSA DNA. The assay utilizes FDA cleared IVD reagents. Performance characteristics have been verified by the [facility] within the [facility]. The [facility] is authorized under the Clinical Laboratory Improvement Amendment of 1988 (CLIA-88) to performhigh complexity testing.BEDSIDE GLUCOSE TESTING Most recent to oldest 1 2 3 [Reference Range]: Gluc POC Lifscn [70-99 191 mg/dL 2 225 mg/dL 3 187 mg/dL 4 mg/dL] *HI* *HI* *HI* (07/28/2012 14:58:00) (07/28/2012 10:58:00) (07/28/2012 06:00:00) Comment1 Assess patient Assess patient Notify RN/MD *NA* *NA* *NA* (07/28/2012 14:58:00) (07/28/2012 10:58:00) (07/28/2012 06:00:00) Comment2 Notify RN/MD Notify RN/MD Notify RN/MD *NA* *NA* *NA* (07/28/2012 14:58:00) (07/28/2012 10:58:00) (07/24/2012 15:05:00) 2Interpretive Data: Upper Reportable Limit: 200 mg/dL.3Interpretive Data: Upper Reportable Limit: 200 mg/dL.4Interpretive Data: Upper Reportable Limit: 200 mg/dL.VIRAL - SEROLOGY Most recent to oldest [Reference Range]: 1 2 3 Influ A [Negative] Negative (07/22/2012 10:05:00) Influ B [Negative] Negative 5 (07/22/2012 10:05:00) 5Interpretive Data: Due to the low sensitivity of this test a negative result does not exclude influenza virus infection. A diagnosis of influenza should be considered based on a patient's clinical presentation and empiric antiviral treatment should be considered, if indicated. If more conclusive testing is desired, follow-up confirmatory testing with either viral culture or PCR is warranted.CHEMISTRY Most recent to oldest 1 2 3 [Reference Range]: Sodium Lvl [135-145 mEq/L] 141 mEq/L 138 mEq/L 141 mEq/L (07/28/2012 05:13:00) (07/27/2012 06:33:00) (07/26/2012 03:50:00) Potassium Lvl [3.5-5.1 4.8 mEq/L 5.9 mEq/L 4.7 mEq/L mEq/L] (07/28/2012 05:13:00) *HI* (07/26/2012 03:50:00) (07/27/2012 06:33:00) Chloride Lvl [95-109 mEq/L] 102 mEq/L 99 mEq/L 98 mEq/L (07/28/2012 05:13:00) (07/27/2012 06:33:00) (07/26/2012 03:50:00) CO2 [24-32 mEq/L] 30 mEq/L 28 mEq/L 33 mEq/L (07/28/2012 05:13:00) (07/27/2012 06:33:00) *HI* (07/26/2012 03:50:00) AGAP [10.0-20.0 mEq/L] 13.8 mEq/L 16.9 mEq/L 14.7 mEq/L (07/28/2012 05:13:00) (07/27/2012 06:33:00) (07/26/2012 03:50:00) Creatinine Lvl [0.5-1.4 0.8 mg/dL 0.6 mg/dL 0.9 mg/dL mg/dL] (07/28/2012 05:13:00) (07/27/2012 06:33:00) (07/26/2012 03:50:00) eGFR 81 mL/min/1.73m2 6 100 mL/min/1.73m2 7 70 mL/min/1.73m2 8 *NA* *NA* *NA* (07/28/2012 05:13:00) (07/27/2012 06:33:00) (07/26/2012 03:50:00) BUN [7-22 mg/dL] 24 mg/dL 24 mg/dL 29 mg/dL *HI* *HI* *HI* (07/28/2012 05:13:00) (07/27/2012 06:33:00) (07/26/2012 03:50:00) B/C Ratio [6-25] 27 *HI* (07/23/2012 04:24:00) Glucose Lvl [70-99 mg/dL] 188 mg/dL 9 207 mg/dL 10 235 mg/dL 11 *HI* *HI* *HI* (07/28/2012 05:13:00) (07/27/2012 06:33:00) (07/26/2012 03:50:00) Total Protein [6.4-8.4 6.0 g/dL g/dL] *LOW* (07/23/2012 04:24:00) Albumin Lvl [3.5-5.0 g/dL] 2.7 g/dL *LOW* (07/23/2012 04:24:00) Globulin [2.0-4.0 g/dL] 3.3 g/dL (07/23/2012 04:24:00) A/G Ratio [0.7-1.6] 0.8 (07/23/2012 04:24:00) Calcium Lvl [8.5-10.5 8.3 mg/dL 8.2 mg/dL 8.3 mg/dL mg/dL] *LOW* *LOW* *LOW* (07/28/2012 05:13:00) (07/27/2012 06:33:00) (07/26/2012 03:50:00) Magnesium Lvl [1.8-2.4 1.9 mg/dL mg/dL] (07/22/2012 08:29:00) ALT [0-65 unit/L] 62 unit/L (07/23/2012:24:00) AST [0-37 unit/L] 36 unit/L (07/23/2012:24:00) Alk Phos [39-136 unit/L] 72 unit/L (07/23/2012:24:00) Bili Total [0.2-1.3 mg/dL] 0.5 mg/dL (07/23/2012 04:24:00) CK MB [0.5-3.6 ng/mL] 0.8 ng/mL (07/22/2012 08:29:00) Troponin-I [0.00-0.40 <0.02 ng/mL ng/mL] (07/22/2012 08:29:00) BNP [<=100 pg/mL] 178 pg/mL 12 *HI* (07/22/2012 09:00:00) 6Result Comment: The eGFR is calculated using [...] eGFR should be multiplied by the estimated BMI.7Result Comment: The eGFR is calculated using the CKD-EPI formula. In most young, healthy individualsthe eGFR will be >90 mL/ min/1.73m2. The [...] eGFR should be multiplied by the estimated BMI.8Result Comment: The eGFR is calculated using the CKD-EPI formula. In most young, healthy individualsthe eGFR will be >90 mL/ min/1.73m2. The [...] eGFR should be multiplied by the estimated BMI.9Interpretive Data: Adult reference range values reflect the clinical guidelines of the [place] [employer].10Interpretive Data: Adult reference range values reflect the clinical guidelines of the [place] [employer].11Interpretive Data: Adult reference range values reflect the clinical guidelines of the [place] [employer].12Interpretive Data: Elevated results are in line with increasing severity of congestive heart failure. Minor elevations between 100 and 300 may be seen with Myocardial Ischemia, Sodium retaining drugs, and compensated/treated heart failure.HEMATOLOGY Most recent to oldest 1 2 3 [Reference Range]: WBC [3.7-10.4 K/CMM] 14.3 K/CMM 15.9 K/CMM 17.2 K/CMM *HI* *HI* *HI* (07/28/2012 05:13:00) (07/27/2012 06:33:00) (07/26/2012 03:50:00) RBC [4.20-5.40 M/CMM] 3.73 M/CMM 3.82 M/CMM 3.83 M/CMM *LOW* *LOW* *LOW* (07/28/2012 05:13:00) (07/27/2012 06:33:00) (07/26/2012 03:50:00) Hgb [12.0-16.0 g/dL] 11.5 g/dL 11.8 g/dL 12.0 g/dL *LOW* *LOW* (07/26/2012 03:50:00) (07/28/2012 05:13:00) (07/27/2012 06:33:00) Hct [36.0-48.0 %] 35.0 % 35.6 % 35.3 % *LOW* *LOW* *LOW* (07/28/2012 05:13:00) (07/27/2012 06:33:00) (07/26/2012 03:50:00) MCV [81.0-99.0 fL] 93.8 fL 93.2 fL 92.0 fL (07/28/2012 05:13:00) (07/27/2012 06:33:00) (07/26/2012 03:50:00) MCH [27.0-31.0 pg] 30.9 pg 30.9 pg 31.3 pg (07/28/2012 05:13:00) (07/27/2012 06:33:00) *HI* (07/26/2012 03:50:00) MCHC [32.0-36.0 g/dL] 32.9 g/dL 33.2 g/dL 34.1 g/dL (07/28/2012 05:13:00) (07/27/2012 06:33:00) (07/26/2012 03:50:00) RDW [11.5-14.5 %] 14.9 % 14.8 % 14.7 % *HI* *HI* *HI* (07/28/2012 05:13:00) (07/27/2012 06:33:00) (07/26/2012 03:50:00) Platelet [133-450 K/CMM] 202 K/CMM 197 K/CMM 215 K/CMM (07/28/2012 05:13:00) (07/27/2012 06:33:00) (07/26/2012 03:50:00) MPV [7.4-10.4 fL] 9.8 fL 9.8 fL 9.8 fL (07/28/2012 05:13:00) (07/27/2012 06:33:00) (07/26/2012 03:50:00) PT [12.0-14.7 seconds] 13.2 seconds (07/22/2012 08:29:00) INR [0.85-1.17] 0.98 13 (07/22/2012 08:29:00) PTT [22.9-35.8 seconds] 23.5 seconds 14 (07/22/2012 08:29:00) 13Interpretive Data: RECOMMENDED RANGES FOR PROTIME INR: 2.0-3.0 for most medical and surgical thromboembolic states. 2.5-3.5 for artificial heart valves and recurrent embolism. INR SHOULD BE USED ONLY FOR PATIENTS ON STABLE ANTICOAGULANT THERAPY.14Interpretive Data: Heparin Therapeutic Range: 57 - 92 Seconds Microbiology Reports PROCEDURE:Gram Stain STATUS: Auth (Verified) BODY SITE: COLLECTED DATE/TIME: 07/22/2012 12:15:00 SOURCE: Sputum FREE TEXT SOURCE: FINAL REPORTS Final ReportGood Quality Specimen Less Than 25 Squamous Epithelial Cells/Lpf Few WBC's Rare Gram Positive Cocci PROCEDURE:Culture: Respiratory w/Gram Stain STATUS: Auth (Verified) BODY SITE: COLLECTED DATE/TIME: 07/22/2012 12:15:00 SOURCE: Sputum FREE TEXT SOURCE: FINAL REPORTS Final ReportModerate Yeast . Normal Respiratory Marie IsolatedPRELIMINARY REPORTS Preliminary ReportHolding For Better GrowthSTAIN REPORTS Stain ReportGram Stain Performed By: [facility] Procedures Procedures Date Related Diagnosis Bilateral replacement of hip joints 08/08/1997 00:00:00 Hemorrhoidectomy 08/08/1968 00:00:00 Hysterectomy 08/08/1994 00:00:00 Suprapubic sling operation 08/08/1969 00:00:00 Suspension of bladder 08/08/1969 00:00:00 Tonsillectomy
--- OUTSIDE RECORDS SUMMARY | 2018-03-31 12:45 | XMS REPORT | Summary of Care ---
:1955 Author Care Team Providers Name Role Phone Stevan Alarcon Primary Care Physician Unavailable Encounter HQ Encntr_efe(FIN) [id number] Date(s): 12/25/13 - 12/25/13 [facility] [address] Discharge Disposition: Home Physician Attending: Alis Zuluaga MD Physician_Referring: Alis Zuluaga MD Reason for Visit 241.1 GOITER, MULTINODULAR, NONTOXIC Problem List Condition Effective Dates Status Health Status Informant Anemia(Confirmed) Resolved Constipation(Confirmed) Active copd(Confirmed) Active Depression(Confirmed) Active diabetes(Confirmed) Active Emphysema(Confirmed) Active exerstemia(Confirmed) Active Fibromyalgia(Confirmed) Active GERD - Gastro-esophageal reflux Active disease(Confirmed) htn(Confirmed) Active hyperlipidemia(Confirmed) Active hypothyroidism(Confirmed) Active Lupus(Confirmed) Active Neuropathy(Confirmed) Active PE - Pulmonary embolism(Confirmed)1 Resolved PE - Pulmonary embolism(Confirmed) Active Sleep apnea(Confirmed) Active 20709 after surgry decompression rt thigh Allergies, Adverse Reactions, Alerts Substance Reaction Severity Status codeine Nausea and vomiting Active Medications No data available for this section Medications Administered During Your Visit No data available for this section Immunizations No data available for this section Social History Social History Type Response
--- OUTSIDE RECORDS SUMMARY | 2018-03-31 12:45 | XMS REPORT | Summary of Care ---
:1955 Author Organization [facility] Address [address] [place], [place] [address]- Care Team Providers Name Role Phone Stevan Alarcon Primary Care Physician Unavailable Encounter HQ Encntr_efe([facility]) [id number] Date(s): 10/22/15 - 10/22/15 [facility] [id number] [place] [address]- Discharge Disposition: Home Attending Physician: Alis Zuluaga MD Referring Physician: Alis Zuluaga MD Vital Signs No data available for this section Problem List Condition Effective Dates Status Health Status Informant Anemia(Confirmed) Resolved Constipation(Confirmed) Active Depression(Confirmed) Active Emphysema(Confirmed) Active Fibromyalgia(Confirmed) Active Generalized abdominal pain1 01/22/09 Active GERD - Gastro-esophageal reflux Active disease(Confirmed) Lupus(Confirmed) Active Neuropathy(Confirmed) Active PE - Pulmonary embolism(Confirmed)2 Resolved PE - Pulmonary embolism(Confirmed) Active Sleep apnea(Confirmed) Active 1Data migrated from [employer] on 01/07/15.47198 after surgry decompression rt thigh Allergies, Adverse [...] 08/08/69 Suspension of bladder 08/08/69 Hemorrhoidectomy 08/08/68 Tonsillectomy Social History Social History Type Response Assessment and Plan No data available for this section
--- OUTSIDE RECORDS SUMMARY | 2018-03-31 12:45 | XMS REPORT | Summary of Care ---
:1955 Author Care Team Providers Name Role Phone Stevan Alarcon Primary Care Physician Unavailable Encounter HQ Mikentr_efe(FIN) [id number] Date(s): 11/19/13 - 11/19/13 [facility] [address] Discharge Disposition: Home Physician Attending: Edwardo Leonard V Physician_Referring: Edwardo Leonard V Reason for Visit GERD / EPICGASTRIC PAIN Vital Signs Most recent to oldest [Reference Range]: 1 Height 154.94 cm (11/19/13 10:09 AM) Weight 80.455 kg (11/19/13 10:09 AM) Problem List Condition Effective Dates Status Health Status Informant Anemia(Confirmed) Resolved Constipation(Confirmed) Active copd(Confirmed) Active Depression(Confirmed) Active diabetes(Confirmed) Active Emphysema(Confirmed) Active exerstemia(Confirmed) Active Fibromyalgia(Confirmed) Active GERD - Gastro-esophageal reflux Active disease(Confirmed) htn(Confirmed) Active hyperlipidemia(Confirmed) Active hypothyroidism(Confirmed) Active Lupus(Confirmed) Active Neuropathy(Confirmed) Active PE - Pulmonary embolism(Confirmed)1 Resolved PE - Pulmonary embolism(Confirmed) Active Sleep apnea(Confirmed) Active 19424 after surgry decompression rt thigh Allergies, Adverse Reactions, Alerts Substance Reaction Severity Status codeine Nausea and vomiting Active Medications Visipaque 100 mL, 0 ml/hr, Route: IV, Drug Form: SOLN, ONCE, Start date: 11/19/13 10:12:00 , Stop date: 11/19/13 10:12:00 Notes: (Same as: Visipaque). Start Date: 11/19/13 Stop Date: 11/19/13 Status: Completed Medications Administered During Your Visit No data available for this section Immunizations No data available for this section Social History Social History Type Response
--- OUTSIDE RECORDS SUMMARY | 2018-03-31 12:45 | XMS REPORT | Summary of Care ---
:1955 Author Organization [facility] Address [id number] [place] [id number]- Encounter HQ Encntr_alibennie(FIN) [id number] Date(s): 08/24/16 - 08/24/[address] [phone] [phone] Discharge Disposition: Home or Self Care Attending Physician: Edwardo Leonard MD Referring Physician: Edwardo Leonard MD Vital Signs Most recent to oldest 1 2 3 [Reference Range]: Height 154.94 cm (08/17/16 1:05 PM) Temperature Oral [96.4-99.1 99.7 DegF DegF] *HI* (08/17/16 1:05 PM) Blood Pressure [90-140/60-90 168/76 mmHg 172/82 mmHg 142/67 mmHg mmHg] *HI* *HI* *HI* (08/24/16 8:30 AM) (08/24/16 8:15 AM) (08/24/16 8:01 AM) Respiratory Rate [14-20 BRMIN] 17 BRMIN 14 BRMIN 15 BRMIN (08/24/16 8:30 AM) (08/24/16 8:15 AM) (08/24/16 8:01 AM) Peripheral Pulse Rate [60-100 72 bpm bpm] (08/17/16 1:05 PM) Weight 77.273 kg (08/17/16 1:05 PM) Body Mass Index 32.19 m2 (08/17/16 1:05 PM) Problem List Condition Effective Dates Status Health [...] embolism(Confirmed)2 Resolved PE - Pulmonary embolism(Confirmed) Active Sciatic nerve pain(Confirmed) Active Lupus(Confirmed) Active Sleep apnea(Confirmed) Active 1Data migrated from [employer] on 01/07/15.30186 after surgry decompression rt thigh Allergies, Adverse Reactions, Alerts Substance Reaction Severity Status codeine1 Nausea and vomiting Active 1Data migrated from [employer] on 10/08/15. Originally documented as CODEINE. Gastrointestinal problems, e.g., nausea, vomiting, diarrhea Medications Ativan 0.5 mg oral tablet 0.5 mg=1 tab, PO, PRN, PRN as needed for anxiety, 0 Refill(s) Start Date: 08/18/16 Status: OrderedcloNIDine 0.1 mg oral tablet 0.1 mg=1 tab, PO, BID, PRN Q 2hrs SBP >170 or DBP >95 Start Date: 08/18/16 Status: Ordereddoxepin 10 mg oral capsule 10 mg=1 cap, PO, Bedtime Start Date: 08/19/16 Status: OrderedEffexor XR 150 mg oral capsule, extended release 150 mg=1 cap, PO, Daily, 0 Refill(s) Start Date: 08/19/16 Status: OrderedEliquis 5 mg oral tablet 5 mg=1 tab, PO, BID Start Date: 08/19/16 Status: OrderedLactated Ringers 1,000 mL 1,000 mL, Rate: 25 ml/hr, Infuse over: 40 hr, Route: IV, Dosing Weight 77.273 kg , Total Volume: 1,000, Start date: 08/24/16 5:59:00 [employer]ES REPRESENT[employer]IVE [employer], Duration: 30 day, Stop date: 09/23/16 5:58:00 SALES REPRESENTATIVE [employer] Start Date: 08/24/16 Stop Date: 08/24/16 Status: Discontinuedlosartan PO, Daily, 0 Refill(s) Start Date: 08/19/16 Status: Orderedmagnesium oxide 250 mg oral tablet 250 mg=1 tab, PO, BID, 0 Refill(s) Start Date: 08/18/16 Status: OrderedmetFORMIN 1000 mg oral tablet 1,000 mg=1 tab, PO, BID, 0 Refill(s) Start Date: 08/18/16 Status: Orderedorphenadrine 100 mg oral tablet, extended release 100 mg=1 tab, PO, BID, 0 Refill(s) Start Date: 08/19/16 Status: OrderedPlaquenil 100 mg, PO, Daily Start Date: 08/19/16 Status: OrderedProtonix 40 mg oral enteric coated tablet 40 mg=1 tab, PO, Daily, 0 Refill(s) Start Date: 08/19/16 Status: Orderedsodium chloride 0.9% 1000 ml INJ 1,000 mL 1,000 mL, Rate: 21 ml/hr, Infuse over: 47.6 hr, Route: IV, Dosing Weight 77.273 kg, Total Volume: 1,000, Start date: 08/24/16 6:30:00 SALES REPRESENTATIVE [employer]EWEL[employer], Duration: 30 day, Stop date: 09/23/16 6:29:00 SALES REPRESENTATIVE [employer]EL[employer] Start Date: 08/24/16 Stop Date: 08/24/16 Status: Discontinued Results ELECTROLYTES Most recent to oldest [Reference Range]: 1 Sodium Lvl [135-145 mEq/L] 146 mEq/L *HI* (08/17/16 1:14 PM) Potassium Lvl [3.5-5.1 mEq/L] 4.1 mEq/L (08/17/16 1:14 PM) Chloride Lvl [95-109 mEq/L] 109 mEq/L (08/17/16 1:14 PM) CO2 [24-32 mEq/L] 31 mEq/L (08/17/16 1:14 PM) AGAP [10.0-20.0 mEq/L] 10.1 mEq/L (08/17/16 1:14 PM) CHEM PANEL Most recent to oldest [Reference Range]: 1 Creatinine Lvl [0.50-1.40 mg/dL] 0.84 mg/dL (08/17/16 1:14 PM) eGFR 75 mL/min/1.73m2 1 *NA* (08/17/16 1:14 PM) BUN [7-22 mg/dL] 14 mg/dL (08/17/16 1:14 PM) Glucose Lvl [70-99 mg/dL] 100 mg/dL *HI* (08/17/16 1:14 PM) Calcium Lvl [8.5-10.5 mg/dL] 9.2 mg/dL (08/17/16 1:14 PM) 1Result Comment: The eGFR is calculated using [...] should be multiplied by the estimated BMI. Immunizations No data available for this section Procedures Procedure Date Related Diagnosis Body Site Bilateral replacement of hip joints 08/08/97 Hysterectomy 08/08/94 Suprapubic sling operation 08/08/69 Suspension of bladder 08/08/69 Hemorrhoidectomy 08/08/68 Appendectomy Insertion of implantable intrathecal pump Tonsillectomy Social History Social History Type Response Substance Abuse Use: None. Alcohol Never Smoking Status Never smoker; Exposure to Tobacco Smoke None; Cigarette Smoking Last 365 Days No; Reg Smoking Cessation Counseling No Assessment and Plan No data available for this section
--- OUTSIDE RECORDS SUMMARY | 2018-03-31 12:45 | XMS REPORT | CCD ---
:1955 Author Organization [facility] Care Team Providers Name Role Phone Agnes, Stevan Primary Care Provider Unavailable Edwardo Leonard V Referring Provider Allergies, Adverse Reactions, Alerts Substance Reaction Status codeine Active Problem List Condition Effective Dates Status Anemia Resolved Constipation Active copd Active Depression Active diabetes Active Emphysema Active exerstemia Active Fibromyalgia Active GERD - Gastro-esophageal reflux disease Active htn Active hyperlipidemia Active hypothyroidism Active Lupus Active Neuropathy Active PE - Pulmonary embolism1 Resolved PE - Pulmonary embolism Active Sleep apnea Active systemic lupus < 06/20/2013 Inactive 62510 after surgry decompression rt thigh Medications Medication Instructions Start Date End Date Status metFORmin 500 mg oral 500 mg, 1 tab, PO, BID, 06/20/2013 Ordered tablet 30 tab, Substitution Allowed Benadryl 25 mg oral Substitution Allowed 06/20/2013 Ordered tablet doxycycline hyclate 100 100 mg, 1 cap, PO, Q12H, 06/20/2013 06/30/2013 Ordered mg oral capsule 20 cap, Substitution Allowed Nucynta 50 mg oral tablet 50 mg, 1 tab, PO, Q4H, 06/20/2013 Ordered PRN, for pain, Substitution Allowed, TAB Nucynta ER 200 mg oral PO, BID, Substitution 06/20/2013 Ordered tablet, extended release Allowed Sodium Chloride 0.9% IV 1,000 mL, Rate: 25 ml/hr, 06/25/2013 06/25/2013 Discontinued 1000 mL Infuse over: 40 hr, Route: IV, Dosing Weight 80.909 kg, Total Volume: 1,000, Start date: 06/25/13 10:04:00, Duration: 30 day, Stop date: 07/25/13 10:03:00 albuterol 90 mcg/inh 2 puff, INHALATION, PRN, 06/20/2013 Ordered inhalation aerosol PRN, 1 ea, wheezing, Substitution Allowed, Maintenance predniSONE 5 mg oral 5 mg, 1 tab, PO, Daily, 06/20/2013 07/04/2013 Ordered tablet 14 tab, Substitution Allowed, TAB potassium chloride 10 mEq 10 mEq, 1 tab, PO, BID, 06/20/2013 Ordered oral tablet, extended 10 tab, Substitution release Allowed magnesium oxide 400 mg 400 mg, 1 tab, PO, BID, 06/20/2013 06/30/2013 Ordered oral tablet 10 tab, Substitution Allowed, TAB isosorbide dinitrate 30 30 mg, 1 tab, PO, Daily, 06/20/2013 Ordered mg oral tablet 120 tab, Substitution Allowed, TAB Vital Signs Most recent to oldest 1 2 3 [Reference Range]: Height 154.94 cm (06/20/2013 14:49:00) Systolic Blood Pressure 126 mmHg 133 mmHg 124 mmHg [90-140 mmHg] (06/25/2013 12:15:00) (06/25/2013 12:00:00) (06/25/2013 11:52: 00) Diastolic Blood Pressure 64 mmHg 67 mmHg 65 mmHg [60-90 mmHg] (06/25/2013 12:15:00) (06/25/2013 12:00:00) (06/25/2013 11:52: 00) Respiratory Rate [14-20 18 BRMIN 16 BRMIN 16 BRMIN BRMIN] (06/25/2013 12:15:00) (06/25/2013 12:00:00) (06/25/2013 11:52:00) Weight 80.909 kg (06/20/2013 14:49:00)
[2018-03-31] MEDS ORDERED: POLYETHYL GLY 3350 17 GM/DOSE PO PRN (14:00)
[2018-03-31] MEDS ORDERED: DIPHENHYDRAMINE 25 MG TAB/CAP PO PRN (14:00)
[2018-03-31] MEDS ORDERED: ONDANSETRON 4 MG (ODT) TAB PO PRN (14:00)
[2018-03-31] MEDS ORDERED: ONDANSETRON 4 MG/2 ML VIAL IV PRN (14:00)
[2018-03-31] MEDS ORDERED: LOPERAMIDE HCL 2 MG CAPSULE PO PRN (14:00)
[2018-03-31 14:03] LABS: Urine Appearance CLEAR; Urine Bilirubin NEGATIVE (NEG); Urine Blood 2+ (NEG); Urine Color YELLOW; Urine Glucose NEGATIVE (NEG); Urine Protein 2+ (NEG)
[2018-03-31 14:13] LABS: Urine Microscopic Reflex ORDER UMIC
[2018-03-31 14:22] LABS: Urine Bacteria 20-50 /HPF (<20); Urine Culture Reflex Order REFLEXED
[2018-03-31 14:44] LABS: Absolute Monocytes 0.7 K/uL (0.1-1.3); Absolute Neutrophil 5.8 K/uL (1.8-8.0); Basophils % 0.3 % (0-1.3); Eosinophils % 0.2 % (0-4.4); Hematocrit 33.7 % (36.0-45.0); Lymphocytes % 12.6 % (15.3-44.8); MCH 30.2 pg (27.0-35.0); MCV 89.2 fL (80-100); MPV 10.3 fL (7.6-11.3); Monocytes % 9.8 % (3.3-12.3); RBC Red Blood Cell Count 3.77 M/uL (3.86-4.86)
[2018-03-31 14:48] LABS: Protime INR 1.35
--- NOTE | 2018-03-31 14:58 | RAD REPORT ---
EXAM DESCRIPTION: Olinda Henry (2 Views)03/31/2018 2:20 pm CLINICAL HISTORY: Fever COMPARISON: 2016 FINDINGS: The lungs appear clear of acute infiltrate. The heart is normal size IMPRESSION: No acute abnormalities displayed
[2018-03-31 15:27] LABS: Albumin 3.1 g/dL (3.4-5.0); Bilirubin Direct 0.2 mg/dL (0-0.2); Bilirubin Total 0.6 mg/dL (0.2-1.0); Phosphorus 3.1 mg/dL (2.5-4.9); Potassium 3.6 mmol/L (3.5-5.1); Protein, Total 7.1 g/dL (6.4-8.2); Thyroid Stimulating Hormone 3.32 uIU/mL (0.36-3.74)
[2018-03-31] MEDS: NACHLORIDE 0.45% 1,000 ML IV SCH ×2 (15:28→22:44)
[2018-03-31] MEDS: CEFTRIAXONE/SWI 1gm 1 GM/10 ML SYR IV SCH (15:28)
[2018-03-31] MEDS: ACETAMINOPHEN 325 MG TABLET PO PRN ×2 (16:22→23:49)
[2018-04-01] MEDS ORDERED: GLUCAGON 1 MG/VIAL IM PRN (04:25)
[2018-04-01] MEDS ORDERED: D50W 25 GM/50 ML SYRINGE IV PRN (04:25)
[2018-04-01 05:06] LABS: Absolute Lymphocytes (CBC) 1.1 K/uL (0.7-4.9); Absolute Monocytes 0.8 K/uL (0.1-1.3); Absolute Neutrophil 4.5 K/uL (1.8-8.0); Basophils % 0.1 % (0-1.3); Eosinophils % 0.3 % (0-4.4); Hematocrit 30.8 % (36.0-45.0); Lymphocytes % 17.1 % (15.3-44.8); MCH 30.8 pg (27.0-35.0); MCV 89.2 fL (80-100); MPV 10.2 fL (7.6-11.3); Monocytes % 12.3 % (3.3-12.3); RBC Red Blood Cell Count 3.45 M/uL (3.86-4.86)
[2018-04-01 05:16] LABS: Magnesium 1.9 mg/dL (1.8-2.4); Potassium 3.6 mmol/L (3.5-5.1)
[2018-04-01] MEDS ORDERED: POTASSIUM 25 MEQ EFFERV TAB PO ONE (06:22)
[2018-04-01] MEDS: NACHLORIDE 0.45% 1,000 ML IV SCH ×2 (06:44→10:36)
[2018-04-01] MEDS: INSULIN -REGULAR HUMAN 50 UNIT/0.5 ML ML SQ SCH ×4 (07:30→21:00)
[2018-04-01] MEDS ORDERED: PROMETHAZINE 25 MG TABLET PO PRN (07:52)
--- NOTE | 2018-04-01 08:33 | EKG ---
Test Date: 2018-03-31 Test Time: 15:45:53 Loading Unit Operator Seating: TC MEASUREMENT RESULTS: Intervals: Rate: 63 ME: 168 QRSD: 88 QT: 514 QTc: 525 [place]: P: 47 ME: 168 QRS: 48 T: 22 INTERPRETIVE STATEMENTS: Normal sinus rhythm Prolonged QT Abnormal ECG Compared to ECG 05/24/2014 07:58:08 Prolonged QT interval now present ST (T wave) deviation no longer present Possible ischemia no longer present Electronically Signed On 04-01-18 08:32:44 CDT by Damian Bliss
[2018-04-01] MEDS: VENLAFAXINE HCL PO SCH (09:00)
[2018-04-01] MEDS ORDERED: BACLOFEN 10 MG TAB PO SCH (09:00)
[2018-04-01] MEDS ORDERED: PANTOPRAZOLE SODIUM PO SCH (09:00)
[2018-04-01] MEDS ORDERED: BISOPROLOL PO SCH (09:00)
[2018-04-01] MEDS ORDERED: HYDROXYCHLOROQUINE 200MG TAB PO SCH (09:00)
[2018-04-01] MEDS ORDERED: ENOXAPARIN 40 MG/0.4 ML SQ SCH (09:00)
[2018-04-01] MEDS: FOLIC ACID 1 MG TABLET PO SCH (09:00)
[2018-04-01] MEDS: [UNRECOGNIZED DRUG - OTHER] PO SCH ×2 (09:00→21:00)
[2018-04-01] MEDS: METFORMIN HCL 500 MG TAB PO SCH ×2 (09:00→16:08)
[2018-04-01] MEDS ORDERED: APIXABAN 2.5 MG TABLET PO SCH (09:00)
[2018-04-01] MEDS ORDERED: cloNIDine HCl 0.1 MG TAB PO SCH (09:00)
[2018-04-01] MEDS ORDERED: HCTZ PO SCH (09:00)
[2018-04-01] MEDS ORDERED: CYANOCOBALAMIN 1,000 MCG TAB PO SCH (09:00)
[2018-04-01] MEDS: ACETAMINOPHEN 325 MG TABLET PO PRN (09:34)
[2018-04-01] MEDS ORDERED: SODIUM CHLORIDE 0.9% 10ML INJ IV PRN (10:21)
--- NOTE | 2018-04-01 10:26 | P.PN ---
Subjective Date of Service: 04/01/18 Chief Complaint: FEVER, CHILLS, WEAKNESS, NAUSEA. Subjective: Improving (SHE IS FEELING A LOT BETTER.) Review of Systems 10-point ROS is otherwise unremarkable General: Weakness, Malaise Gastrointestinal: Nausea Physical Examination - Vital Signs Temperature: 101.8 F Blood Pressure: 148/66 Pulse: 66 Respirations: 18 Pulse Ox (%): 94 - Physical Exam General: Mild distress HEENT: Atraumatic, PERRLA, EOMI Neck: Supple, JVD not distended Respiratory: Clear to auscultation bilaterally, Normal air movement Cardiovascular: Regular rate/rhythm, Normal S1 S2 Gastrointestinal: Normal bowel sounds, No tenderness Musculoskeletal: Other (WEAK, WHEELCHAIR BOUND) Integumentary: No rashes Neurological: Normal speech, Normal tone, Normal affect Lymphatics: No axilla or inguinal lymphadenopathy - Studies Laboratory Data (last 24 hrs) 04/01/18 04:32: Sodium 137, Potassium 3.6, BUN 13, Creatinine 0.90, Glucose 73 L , Magnesium 1.9 04/01/18 04:32: WBC 6.5, Hgb 10.6 L, Hct 30.8 L, Plt Count 108 L 03/31/18 14:10: PT 16.0 H, INR 1.35, APTT 33.0 03/31/18 14:10: Sodium 138, Potassium 3.6, BUN 13, Creatinine 1.00, Glucose 100 , Phosphorus 3.1, Magnesium 2.0, Total Bilirubin 0.6, AST 41 H, ALT 50, Alkaline Phosphatase 89 03/31/18 14:10: WBC 7.5, Hgb 11.4 L, Hct 33.7 L, Plt Count 129 L Medications List Reviewed: Yes Assessment And Plan - Current Problems (Diagnosis) (1) UTI (urinary tract infection) Current Visit: Yes Status: Acute Plan: ROCEPHIN IV CULTURE PENDING FEVER CONTINUES BUT LOT LESSER WILL KEEP HER ONE MORE DAY SHE IS STILL VERY NAUSEOUS. Qualifiers: Urinary tract infection type: acute cystitis (2) Nausea Current Visit: Yes Status: Acute Plan: ZOFRAN AND PROTONIX IV. SHE HAD NAUSEA , VOMITING AND DIARRHEA THAT CAN BE FROM CONCURRENT VIRAL INFECTION. (3) SLE (systemic lupus erythematosus related syndrome) Current Visit: Yes Status: Acute (4) Hypercoagulation syndrome Current Visit: Yes Status: Chronic Plan: ELIQUIS PO BID.
[2018-04-01] MEDS: BACLOFEN 10 MG PO SCH ×3 (10:31→22:11)
[2018-04-01] MEDS: VITAMIN B12 500 MCG PO SCH (10:32)
[2018-04-01] MEDS: ISMO PO SCH (10:32)
[2018-04-01] MEDS: SYNTHROID 25 MCG PO SCH (10:32)
[2018-04-01] MEDS: COZAAR 100 MG PO SCH (10:33)
[2018-04-01] MEDS: HOME MED 1 EA UNK (Potassium Chloride [Micro-K] 10 MEQ) PO SCH ×2 (10:33→22:13)
[2018-04-01] MEDS: HOME MED 1 EA UNK (Magnesium Oxide [Magnesium] 250 MG) PO SCH ×2 (12:03→22:13)
[2018-04-01] MEDS: PLAQUENIL 200 MG PO SCH ×2 (12:03→22:23)
[2018-04-01] MEDS: PANTOPRAZOLE 40 MG INJ IVP SCH (12:03)
[2018-04-01] MEDS: CEFTRIAXONE/SWI 1gm 1 GM/10 ML SYR IV SCH (14:04)
[2018-04-01] MEDS: SIMVASTATIN PO SCH (22:14)
[2018-04-01] MEDS: APIXABAN 5 MG TABLET PO SCH (22:18)
[2018-04-01] MEDS: ZOLPIDEM TARTRATE 5 MG TABLET PO SCH (22:18)
[2018-04-02 05:15] LABS: Absolute Monocytes 0.7 K/uL (0.1-1.3); Absolute Neutrophil 2.8 K/uL (1.8-8.0); Basophils % 0.2 % (0-1.3); Eosinophils % 1.3 % (0-4.4); Hematocrit 29.6 % (36.0-45.0); Lymphocytes % 22.5 % (15.3-44.8); MCH 30.7 pg (27.0-35.0); MCV 90.1 fL (80-100); MPV 10.4 fL (7.6-11.3); Monocytes % 15.4 % (3.3-12.3); RBC Red Blood Cell Count 3.28 M/uL (3.86-4.86)
[2018-04-02 05:42] LABS: Magnesium 2.2 mg/dL (1.8-2.4); Potassium 4.3 mmol/L (3.5-5.1)
[2018-04-02] MEDS: predniSONE 1 MG TAB PO SCH (06:29)
[2018-04-02] MEDS: SYNTHROID 25 MCG PO SCH (06:30)
[2018-04-02] MEDS: INSULIN -REGULAR HUMAN 50 UNIT/0.5 ML ML SQ SCH ×4 (07:30→21:00)
[2018-04-02] MEDS: METFORMIN HCL 500 MG TAB PO SCH ×2 (08:00→16:41)
[2018-04-02] MEDS: PANTOPRAZOLE 40 MG INJ IVP SCH (08:48)
[2018-04-02] MEDS: NACHLORIDE 0.45% 1,000 ML IV SCH (08:48)
[2018-04-02] MEDS: MULTIVITAMIN PO SCH (08:49)
[2018-04-02] MEDS: ZIAC PO SCH (08:50)
[2018-04-02] MEDS: BACLOFEN 10 MG PO SCH ×3 (08:51→22:21)
[2018-04-02] MEDS: FOLIC ACID 1 MG TABLET PO SCH (08:51)
[2018-04-02] MEDS: COZAAR 100 MG PO SCH (08:52)
[2018-04-02] MEDS: PLAQUENIL 200 MG PO SCH ×2 (08:52→22:22)
[2018-04-02] MEDS: ISMO PO SCH (08:52)
[2018-04-02] MEDS: VITAMIN B12 500 MCG PO SCH (08:53)
[2018-04-02] MEDS: [UNRECOGNIZED DRUG - OTHER] PO SCH ×2 (08:54→21:00)
[2018-04-02] MEDS: HOME MED 1 EA UNK (Potassium Chloride [Micro-K] 10 MEQ) PO SCH ×2 (08:54→22:28)
[2018-04-02] MEDS: HOME MED 1 EA UNK (Magnesium Oxide [Magnesium] 250 MG) PO SCH ×2 (08:54→22:27)
[2018-04-02] MEDS: VENLAFAXINE HCL PO SCH (08:55)
[2018-04-02] MEDS: APIXABAN 5 MG TABLET PO SCH ×2 (08:58→22:23)
--- NOTE | 2018-04-02 10:35 | P.PN ---
Subjective Date of Service: 04/02/18 Chief Complaint: FEVER, CHILLS, WEAKNESS, NAUSEA. Subjective: Ambulating (NOW HAS DIARRHEA. AND ALSO HAS HAD FEVER LAST NIGHT.), Improving Review of Systems 10-point ROS is otherwise unremarkable General: Weakness, Malaise Physical Examination - Vital Signs Temperature: 98.5 F Blood Pressure: 172/71 Pulse: 61 Respirations: 18 Pulse Ox (%): 94 - Physical Exam General: Alert, Mild distress, Obese, Other (GEN WEAK) HEENT: Atraumatic, PERRLA, EOMI Neck: Supple, JVD not distended Respiratory: Clear to auscultation bilaterally, Normal air movement Cardiovascular: Regular rate/rhythm, Normal S1 S2 Gastrointestinal: Normal bowel sounds, No tenderness Musculoskeletal: No tenderness Integumentary: No rashes Neurological: Normal speech, Normal tone, Normal affect Lymphatics: No axilla or inguinal lymphadenopathy - Studies Laboratory Data (last 24 hrs) 04/02/18 04:17: Sodium 139, Potassium 4.3, BUN 10, Creatinine 0.90, Glucose 86, Magnesium 2.2 04/02/18 04:17: WBC 4.6 D, Hgb 10.1 L, Hct 29.6 L, Plt Count 109 L Microbiology Data (last 24 hrs): 03/31/18 13:33 Clean Catch Urine [place] Count - Final BETWEEN 10,000 & 100,000 CFU/ML 03/31/18 13:33 Clean Catch Urine - Final Escherichia Coli Medications List Reviewed: Yes Assessment And Plan - Current Problems (Diagnosis) (1) UTI (urinary tract infection) Current Visit: Yes Status: Acute Plan: ROCEPHIN IV CULTURE PENDING FEVER CONTINUES BUT LOT LESSER WILL KEEP HER ONE MORE DAY SHE IS STILL VERY NAUSEOUS. CT ABDOMEN AND PELVIS WITH CONTRAST STILL NOT CLEAR WHY SHE KEEPS ON HAVING FEVER. [facility] POS FOR E COLI SEN TO ROCEPHIN. 2 PENDING Qualifiers: Urinary tract infection type: acute cystitis (2) Nausea Current Visit: Yes Status: Acute Plan: ZOFRAN AND PROTONIX IV. SHE HAD NAUSEA , VOMITING AND DIARRHEA THAT CAN BE FROM CONCURRENT VIRAL INFECTION. NOT ANY LONGER (3) SLE (systemic lupus erythematosus related syndrome) Current Visit: Yes Status: Acute (4) Hypercoagulation syndrome Current Visit: Yes Status: Chronic Plan: ELIQUIS PO BID. (5) Diarrhea Current Visit: Yes Status: Acute Plan: CHECK FOR C DIFF COLITIS. MOST LIKELY WILL BE OKAY.
--- NOTE | 2018-04-02 13:47 | RAD REPORT ---
EXAM DESCRIPTION: CTAbdomen Pelvis W Contrast - 04/02/2018 1:11 pm CLINICAL HISTORY: Abdominal pain. FEVER , PAIN, UTI, RULE OUT ABSCESS COMPARISON: Chest Pa And Lat (2 Views) dated 03/31/2018; Chest Pa And Lat (2 Views) dated 07/26/2016 TECHNIQUE: Biphasic CT imaging of the abdomen and pelvis was performed with 100 ml non-ionic IV cont rast. All CT scans are performed using dose optimization technique as appropriate and may include automated exposure control or mA/KV adjustment according to patient size. FINDINGS: The lung bases are clear. The liver, spleen, pancreas, adrenal glands and kidneys are within normal limits. Small renal cysts a re present bilaterally. No bowel obstruction, free air, free fluid or abscess. Appendectomy suspected. No evidence of signi ficant lymphadenopathy. Marked streak artifact is present in the hips from bilateral hip arthroplasties, limiting assessment. IMPRESSION: No acute intra-abdominal or pelvic finding.
[2018-04-02] MEDS: LACTOBACILLUS/ACIDOPHILUS TAB PO SCH ×2 (13:54→22:43)
[2018-04-02] MEDS: CEFTRIAXONE/SWI 1gm 1 GM/10 ML SYR IV SCH (13:55)
[2018-04-02 20:44] VITALS: O2SAT 97
[2018-04-02] MEDS: ZOLPIDEM TARTRATE 5 MG TABLET PO SCH (22:23)
[2018-04-02] MEDS: SIMVASTATIN PO SCH (22:29)
[2018-04-03 05:38] LABS: Absolute Lymphocytes (CBC) 1.6 K/uL (0.7-4.9); Absolute Monocytes 0.6 K/uL (0.1-1.3); Absolute Neutrophil 2.7 K/uL (1.8-8.0); Basophils % 0.3 % (0-1.3); Eosinophils % 1.9 % (0-4.4); Hematocrit 32.1 % (36.0-45.0); Lymphocytes % 31.9 % (15.3-44.8); MCH 30.3 pg (27.0-35.0); MCV 89.9 fL (80-100); MPV 10.6 fL (7.6-11.3); Monocytes % 12.2 % (3.3-12.3); RBC Red Blood Cell Count 3.57 M/uL (3.86-4.86)
[2018-04-03 05:44] LABS: Magnesium 2.4 mg/dL (1.8-2.4); Potassium 4.5 mmol/L (3.5-5.1)
[2018-04-03] MEDS: predniSONE 1 MG TAB PO SCH (06:11)
[2018-04-03] MEDS: SYNTHROID 25 MCG PO SCH (06:13)
[2018-04-03 06:19] VITALS: BMI 30.7
[2018-04-03] MEDS: NACHLORIDE 0.45% 1,000 ML IV SCH (06:25)
[2018-04-03] MEDS: INSULIN -REGULAR HUMAN 50 UNIT/0.5 ML ML SQ SCH ×2 (07:30→11:30)
[2018-04-03] MEDS: METFORMIN HCL 500 MG TAB PO SCH (08:00)
[2018-04-03] MEDS: PANTOPRAZOLE 40 MG INJ IVP SCH (08:33)
[2018-04-03] MEDS: MULTIVITAMIN PO SCH (08:37)
[2018-04-03] MEDS: ZIAC PO SCH (08:39)
[2018-04-03] MEDS: FOLIC ACID 1 MG TABLET PO SCH (08:40)
[2018-04-03] MEDS: APIXABAN 5 MG TABLET PO SCH (08:40)
[2018-04-03] MEDS: BACLOFEN 10 MG PO SCH (08:41)
[2018-04-03] MEDS: PLAQUENIL 200 MG PO SCH (08:42)
[2018-04-03] MEDS: ISMO PO SCH (08:42)
[2018-04-03] MEDS: VITAMIN B12 500 MCG PO SCH (08:44)
[2018-04-03] MEDS: LACTOBACILLUS/ACIDOPHILUS TAB PO SCH (08:45)
[2018-04-03] MEDS: HOME MED 1 EA UNK (Magnesium Oxide [Magnesium] 250 MG) PO SCH (08:48)
[2018-04-03] MEDS: [UNRECOGNIZED DRUG - OTHER] PO SCH (08:48)
[2018-04-03] MEDS: HOME MED 1 EA UNK (Potassium Chloride [Micro-K] 10 MEQ) PO SCH (08:49)
[2018-04-03] MEDS: VENLAFAXINE HCL PO SCH (08:50)
[2018-04-03] MEDS ORDERED: LOSARTAN POTASSIUM 50 MG TABLET PO SCH (09:00)
[2018-04-03 12:42] VITALS: BP 145/69; TEMP 97.6
[2018-04-03 23:45] LABS: Vitamin D 1,25-Dihydroxy Total 20 pg/mL (18-72); Vitamin D,1,25-OH2, D2 <8 pg/mL
== END 2018-04-03 13:10 | disposition home or self-care (01) ==
LOC: 2ND 12:39
PROVIDERS: ADMIT Internal Medicine; ATTEND Internal Medicine
DX: N30.00 Acute cystitis without hematuria (principal); B96.20 Unspecified Escherichia coli [E. coli] as the cause of diseases classified elsewhere; M32.9 Systemic lupus erythematosus, unspecified; D68.59 Other primary thrombophilia; R19.7 Diarrhea, unspecified; E66.9 Obesity, unspecified; Z68.30 Body mass index [BMI] 30.0-30.9, adult
CPT/HCPCS: 36415 ×4; 71046; 74177; 80048 ×4; 80076; 82607; 82652; 82962 ×11; 83735 ×4; 84100; 84443; 85025 ×4; 85610; 85730; 87040 ×2; 87077; 87086; 87088; 87186; 87493; 93005; C9113 ×3; G0378; G0379; J0696 ×3; J1650; Q9967; 81003; 81015

== ENCOUNTER 2019-10-22 21:53 | Emergency (ER) | payer OTHER, MEDICARE ==
--- OUTSIDE RECORDS SUMMARY | 2019-10-22 21:55 | XMS REPORT ---
:1955 Author Organization [facility] Address [address] [place] [address] Dr. Ferrer [address] [place] [address] Care Team Providers Name Role Phone Unavailable Unavailable Unavailable Payers Payer Name Policy Type Policy Number Effective Date Expiration Date Problems This patient has no known problems. Allergies, Adverse Reactions, Alerts Allergy Allergy Status Severity Reaction(s) Onset Inactive Treating Comments Name Type Date Date Clinician elliott DUFFY Active VEGA 2018-01 00:00:0 0 Medications This patient has no known medications.
[2019-10-22 23:04] LABS: Protime INR 1.28
[2019-10-22 23:06] LABS: Basophils % 0.4 % (0-1.3); Hematocrit 36.7 % (36.0-45.0); Lymphocytes % 40.2 % (15.3-44.8); MPV 9.3 fL (7.6-11.3); RBC Red Blood Cell Count 4.12 M/uL (3.86-4.86)
[2019-10-22 23:15] LABS: Potassium 3.8 mmol/L (3.5-5.1)
--- NOTE | 2019-10-22 23:46 | ER ---
Nurse's Notes [facility] Name: Dionicio Wilson Age: 64 yrs Sex: Female : 1955 Arrival Date: 10/22/2019 Time: 21:54 Bed 19 Private MD: Diagnosis: Laceration without foreign body of unspecified external genital organs Presentation: 10/21 22:13 Chief complaint: Patient states: Vaginal bleeding that started an hour ago. Pt states wh heavy flow with clots. Pt states taking blood thinners for Hx of PE. Coronavirus screen: The patient has NOT traveled to a country currently being monitored by the [facility] within the last 14 days. Ebola Screen: Patient negative for fever greater than or equal to 101.5 degrees Fahrenheit, and additional compatible Ebola Virus Disease symptoms Patient denies exposure to infectious person. Initial Sepsis Screen: Does the patient meet any 2 criteria? No. Patient's initial sepsis screen is negative. Does the patient have a suspected source of infection? No. Patient's initial sepsis screen is negative. Risk Assessment: Do you want to hurt yourself or someone else? Patient reports no desire to harm self or others. 22:13 Method Of Arrival: Wheelchair 22:13 Acuity: MUSHTAQ 3 22:19 Onset of symptoms was October 22, 2019. Historical: - Allergies: 22:18 No Known Allergies; wh - PMHx: 22:18 Diabetes - NIDDM; Hypertension; High Cholesterol; Lupus; Vascular Necrosis; Complex wh Pain Syndrome; Chronic Inflammatory Demyelinating Polyneuropathy; Pulmonary Embolism; - PSHx: 22:18 Hysterectomy; Appendectomy; - Immunization history:: Adult Immunizations up to date. - Social history:: Smoking status: Patient/guardian denies using. Screenin:18 Abuse screen: Denies threats or abuse. Denies injuries from another. Nutritional screening: No deficits noted. Tuberculosis screening: No symptoms or risk factors identified. Fall Risk None identified. Assessment: 22:52 General: Appears in no apparent distress. comfortable, Behavior is calm, cooperative. lc1 Pain: Denies pain. Neuro: No deficits noted. Cardiovascular: No deficits noted. Respiratory: No deficits noted. GI: No signs and/or symptoms were reported involving the gastrointestinal system. : patient reports vaginal bleeding that started about an hour ago Reports vaginal bleeding that is bright red, with clots. EENT: No deficits noted. Derm: No signs and/or symptoms reported regarding the dermatologic system. Musculoskeletal: No signs and/or symptoms reported regarding the musculoskeletal system. 23:41 Reassessment: No changes from previously documented assessment. Patient and/or family lc1 updated on plan of care and expected duration. Pain level reassessed. Patient is alert, oriented x 3, equal unlabored respirations, skin warm/dry/pink. 10/22 00:03 Reassessment: No changes from previously documented assessment. Patient and/or family lc1 updated on plan of care and expected duration. Pain level reassessed. Patient is alert, oriented x 3, equal unlabored respirations, skin warm/dry/pink. Patient states feeling better. Vital Signs: 10/21 22:02 BP 176 / 84; Pulse 75; Resp 18; Temp 99.1(O); Pulse Ox 95% on R/A; lc1 22:13 BP 176 / 84; Pulse 75; Resp 16; Temp 99.6; Pulse Ox 97% on R/A; Weight 71.67 kg; Height 5 ft. 0 in. (152.40 cm); 23:00 BP 168 / 69; Pulse 75; Resp 18; Pulse Ox 94% on R/A; lc1 23:30 BP 147 / 82; Pulse 80; Resp 18; Pulse Ox 95% on R/A; Pain 0/10; lc1 22:13 Body Mass Index 30.86 (71.67 kg, 152.40 cm) ED Course: 21:54 Patient arrived in ED. ag3 22:09 Hunter Escobedo NP is PHCP. pm1 22:09 Landon Barajas MD is Attending Physician. pm1 22:13 Shruti Saha is Primary Nurse. lc1 22:15 Triage completed. wh 22:53 Missed attempt(s): 20 gauge in right forearm. dh4 22:54 Inserted saline lock: 20 gauge in left antecubital area, using aseptic technique. dh4 forearm, using aseptic technique. 23:00 No apparent distress. Awaiting lab results. lc1 23:00 Assist provider with pelvic exam: Set up pelvic tray. Performed by Hunter Escobedo PACKAGE SEALER MACHINE lc1 Patient tolerated well. 23:00 Patient has correct armband on for positive identification. Bed in low position. Side lc1 rails up X 1. Adult w/ patient. Pulse ox on. NIBP on. Door closed. Noise minimized. Warm blanket given. 23:30 Patient notified of wait time. 1 10/22 00:00 IV discontinued, intact, bleeding controlled, Pressure dressing applied. lc1 Administered Medications: No medications were administered Outcome: 10/21 23:45 Discharge ordered by MD. pm1 10/22 00:00 Discharged to home via wheelchair, with significant other. [facility] Condition: good Discharge instructions given to patient, Instructed on discharge instructions, follow up and referral plans. Demonstrated understanding of instructions, follow-up care. 00:07 Patient left the ED. [facility] Signatures: Shruti Saha 1 Hunter Escobedo, MENA PACKAGE SEALER MACHINE 1 Dinora Johnson Alice 3 Chai Jernigan 4
--- NOTE | 2019-10-22 23:46 | EDPHYS ---
Physician Documentation [facility] Name: Dionicio Wilson Age: 64 yrs Sex: Female : 1955 Arrival Date: 10/22/2019 Time: 21:54 Bed 19 Private MD: ED Physician Landon Barajas HPI: 10/21 23:15 This 64 yrs old Female presents to ER via Wheelchair with complaints of pm1 Vaginal Bleeding. 23:15 The patient presents with vaginal bleeding that is. Onset: The symptoms/episode pm1 began/occurred 1 hour(s) ago. Modifying factors: The symptoms are alleviated by nothing, the symptoms are aggravated by nothing. Associated signs and symptoms: Pertinent negatives: dizziness, chest pain. The patient is not sexually active. patient with hysterectomy and cervix many years ago. Historical: - Allergies: 22:18 No Known Allergies; wh - PMHx: 22:18 Diabetes - NIDDM; Hypertension; High Cholesterol; Lupus; Vascular Necrosis; Complex wh Pain Syndrome; Chronic Inflammatory Demyelinating Polyneuropathy; Pulmonary Embolism; - PSHx: 22:18 Hysterectomy; Appendectomy; wh - Immunization history:: Adult Immunizations up to date. - Social history:: Smoking status: Patient/guardian denies using. ROS: 23:15 Positive for vaginal bleeding, Negative for burning with urination, difficulty pm1 urinating. 23:15 Constitutional: Negative for fever, chills, and weight loss, Cardiovascular: Negative for chest pain, palpitations, and edema, Respiratory: Negative for shortness of breath, cough, wheezing, and pleuritic chest pain, Abdomen/GI: Negative for abdominal pain, nausea, vomiting, diarrhea, and constipation, Back: Negative for injury and pain, MS/Extremity: Negative for injury and deformity, Skin: Negative for injury, rash, and discoloration. 23:15 Neuro: Negative for headache, weakness, numbness, tingling, and seizure. Exam: 23:15 Constitutional: This is a well developed, well nourished patient who is awake, alert, pm1 and in no acute distress. Head/Face: Normocephalic, atraumatic. Chest/axilla: Normal chest wall appearance and motion. Nontender with no deformity. No lesions are appreciated. Cardiovascular: Regular rate and rhythm with a normal S1 and S2. No gallops, murmurs, or rubs. Normal PMI, no JVD. No pulse deficits. Respiratory: Lungs have equal breath sounds bilaterally, clear to auscultation and percussion. No rales, rhonchi or wheezes noted. No increased work of breathing, no retractions or nasal flaring. Abdomen/GI: Soft, non-tender, with normal bowel sounds. No distension or tympany. No guarding or rebound. No evidence of tenderness throughout. Back: No spinal tenderness. No costovertebral tenderness. Full range of motion. Skin: Warm, dry with normal turgor. Normal color with no rashes, no lesions, and no evidence of cellulitis. MS/ Extremity: Pulses equal, no cyanosis. Neurovascular intact. Full, normal range of motion. 23:15 Neuro: Orientation: is normal, Motor: is normal, moves all fours, Sensation: no obvious gross deficits. 23:37 : Pelvic Exam: External exam: is normal, Speculum exam: mild bleeding, small 3 mm pm1 laceration at 6 o'clock 1.5 cm from introitus of vagina, Shruti SMITH. Vital Signs: 22:02 BP 176 / 84; Pulse 75; Resp 18; Temp 99.1(O); Pulse Ox 95% on R/A; lc1 22:13 BP 176 / 84; Pulse 75; Resp 16; Temp 99.6; Pulse Ox 97% on R/A; Weight 71.67 kg; Height 5 ft. 0 in. (152.40 cm); 23:00 BP 168 / 69; Pulse 75; Resp 18; Pulse Ox 94% on R/A; lc1 23:30 BP 147 / 82; Pulse 80; Resp 18; Pulse Ox 95% on R/A; Pain 0/10; lc1 22:13 Body Mass Index 30.86 (71.67 kg, 152.40 cm) MDM: 22:11 Patient medically screened. pm1 23:37 Data reviewed: vital signs. Data interpreted: Pulse oximetry: on room air is 97 %. pm1 Interpretation: normal. Counseling: I had a detailed discussion with the patient and/or guardian regarding: the historical points, exam findings, and any diagnostic results supporting the discharge/admit diagnosis, lab results, the need for outpatient follow up, to return to the emergency department if symptoms worsen or persist or if there are any questions or concerns that arise at home. 23:41 Refusal of service: The patient/guardian displays adequate decision making capability pm1 and despite a detailed discussion of alternatives, benefits, risks, and consequences refuses: patient did not want me to place a dissolvable suture. She wants to try applying pressure with tampon to stop the bleeding. 10/21 22:16 Order name: Basic Metabolic Panel; Complete Time: 23:17 pm1 10/21 22:16 Order name: CBC with Diff; Complete Time: 23:13 pm1 10/21 22:16 Order name: IV Saline Lock; Complete Time: 00:06 pm1 10/21 22:16 Order name: Labs collected and sent; Complete Time: 00:07 pm1 10/21 22:16 Order name: PT-INR; Complete Time: 23:13 pm1 10/21 22:50 Order name: Pelvic Exam Setup; Complete Time: 00:06 pm1 Administered Medications: No medications were administered Disposition: 10/22 13:59 Co-signature as Attending Physician, Landon Barajas MD I agree with the assessment and tw4 plan of care. Disposition: 10/22/19 23:45 Discharged to Home. Impression: Laceration without foreign body of unspecified external genital organs. - Condition is Stable. - Discharge Instructions: Vaginal Laceration. - Medication Reconciliation Form, Thank You Letter, Antibiotic Education, Prescription Opioid Use form. - Follow up: Emergency Department; When: As needed; Reason: Worsening of condition. Follow up: Private Physician; When: 2 - 3 days; Reason: Recheck today's complaints, Continuance of care, Re-evaluation by your physician. - Problem is new. - Symptoms have improved. Signatures: Dispatcher [employer] EDSD Yifan Shruti lc1 Hunter Escobedo, CHECK TOTALER CHECK TOTALER pm1 Dinora Johnson Terrence, MD MD tw4 Corrections: (The following items were deleted from the chart) 00:07 10/21 23:45 10/22/2019 23:45 Discharged to Home. Impression: Laceration without foreign lc1 body of unspecified external genital organs. Condition is Stable. Forms are Medication Reconciliation Form, Thank You Letter, Antibiotic Education, Prescription Opioid Use. Follow up: Emergency Department; When: As needed; Reason: Worsening of condition. Follow up: Private Physician; When: 2 - 3 days; Reason: Recheck today's complaints, Continuance of care, Re-evaluation by your physician. Problem is new. Symptoms have improved. pm1
[2019-10-23 00:35] VITALS: TEMP 99.6
[2019-10-23 00:38] VITALS: BP 147/82; O2SAT 95
== END 2019-10-23 00:07 | disposition home or self-care (01) ==
LOC: ER 21:53
DX: S31.512A Laceration without foreign body of unspecified external genital organs, female, initial encounter (principal); X58.XXXA Exposure to other specified factors, initial encounter; Y93.9 Activity, unspecified; Y92.9 Unspecified place or not applicable
CPT/HCPCS: 36415; 80048; 85025; 85610; 99284

== ENCOUNTER → 2023-10-18 | Emergency (ER) | payer OTHER, MEDICARE ==
[~2023-10-18] MED LIST: CEPHALEXIN 250 MG CAP ONE; FLUCONAZOLE 100 MG TAB ONE; SMZ./TMP. 800/160 MG TABLET ONE
--- NOTE | 2023-10-18 03:13 | ER ---
Nurse's Notes [facility] Name: Dionicio Wilson Age: 68 yrs Sex: Female : 1955 Arrival Date: 10/18/2023 Time: 02:25 Bed 20 Private MD: Diagnosis: Cellulitis of left lower limb;Left ankle and lower leg cellulitis Presentation: 10/17 02:40 Chief complaint: Patient states: redness to left lateral ankle with pain and swelling km8 after gardening today; unknown if something bit her due to neuropathy. Coronavirus screen: Client denies travel out of the [place] in the last 14 days. Ebola Screen: No symptoms or risks identified at this time. Initial Sepsis Screen: Does the patient meet any 2 criteria? No. Patient's initial sepsis screen is negative. Does the patient have a suspected source of infection? No. Patient's initial sepsis screen is negative. Risk Assessment: Do you want to hurt yourself or someone else? Patient reports no desire to harm self or others. Onset of symptoms was October 17, 2023 at 19:00. 02:40 Method Of Arrival: Wheelchair km8 02:40 Acuity: MUSHTAQ 3 km8 Triage Assessment: 02:40 Bite description: bite sustained to left lateral ankle is unknown by an unknown animal, km8 animal information: vaccination(s) is not applicable. General: Appears in no apparent distress. comfortable, Behavior is calm, cooperative, appropriate for age. Pain: Complains of pain in left lateral ankle Pain currently is 5 out of 10 on a pain scale. Quality of pain is described as stinging, Pain began 7 hours ago. EENT: No signs and/or symptoms were reported regarding the EENT system. Neuro: Level of Consciousness is awake, alert, obeys commands, Oriented to person, place, time, situation. Cardiovascular: Denies chest pain, shortness of breath, Patient's skin is warm and dry. Respiratory: Airway is patent Respiratory effort is even, unlabored, Respiratory pattern is regular, symmetrical. GI: No signs and/or symptoms were reported involving the gastrointestinal system. : No signs and/or symptoms were reported regarding the genitourinary system. Derm: Skin is intact, is healthy with good turgor, Skin is dry, Skin is normal, Skin temperature is warm redness to left lateral ankle. Musculoskeletal: No signs and/or symptoms reported regarding the musculoskeletal system. Historical: - Allergies: 02:47 No Known Allergies; km8 - PMHx: 02:47 Chronic Inflammatory Demyelinating Polyneuropathy; Complex Pain Syndrome; Diabetes - [facility] NIDDM; High Cholesterol; Hypertension; Lupus; Pulmonary Embolism; Vascular Necrosis; - PSHx: 02:47 Total abdominal hysterectomy; Appendectomy; 8 - Immunization history:: Client reports receiving the 2nd dose of the Covid vaccine, Flu vaccine is up to date. - Social history:: Smoking status: Patient denies any tobacco usage or history of. Patient/guardian denies using alcohol, street drugs. - Family history:: not pertinent. Screenin:46 [facility] ED Fall Risk Assessment (Adult) History of falling in the last 3 months, [facility] including since admission No falls in past 3 months (0 pts) Confusion or Disorientation No (0 pts) Intoxicated or Sedated No (0 pts) Impaired Gait Yes (1 pt) Mobility Assist Device Used Yes (1 pt) Altered Elimination No (0 pt) Score/Fall Risk Level 0 - 2 = Low Risk Oriented to surroundings, Maintained a safe environment, Educated pt \T\ family on fall prevention, incl call for assistance when getting out of bed, Assessed \T\ reinforced patient's understanding of fall precautions. Abuse screen: Denies threats or abuse. Denies injuries from another. Nutritional screening: No deficits noted. Tuberculosis screening: No symptoms or risk factors identified. Assessment: 02:46 Reassessment: see triage assessment/notes. [facility] 03:25 Reassessment: Patient appears in no apparent distress at this time. No changes from [facility] previously documented assessment. Patient and/or family updated on plan of care and expected duration. Pain level reassessed. Patient is alert, oriented x 3, equal unlabored respirations, skin warm/dry/pink. Vital Signs: 02:40 BP 169 / 76; Pulse 73; Resp 16; Temp 98.8; Pulse Ox 100% on R/A; Weight 61.69 kg (R); km8 Height 5 ft. 0 in. ; Pain 5/10; 02:40 Body Mass Index 26.56 (61.69 kg, 152.4 cm) [facility] 02:40 Pain Scale: Adult [facility] Jennifer Coma Score: 02:46 Eye Response: spontaneous(4). Motor Response: obeys commands(6). Verbal Response: km8 oriented(5). Total: 15. ED Course: 02:30 Patient arrived in ED. gm2 02:38 Yuan Alvarado MD is Attending Physician. sp4 02:40 Andie Cai, RN is Primary Nurse. km8 02:40 Arm band placed on right wrist. km8 02:44 Triage completed. km8 02:46 Patient has correct armband on for positive identification. Bed in low position. Call km8 light in reach. Side rails up X2. Pulse ox on. NIBP on. Warm blanket given. 02:46 No provider procedures requiring assistance completed. Patient maintains SpO2 km8 saturation greater than 95% on room air. 03:16 Provided Education on: d/c teaching. km8 03:17 Patient did not have IV access during this emergency room visit. km8 Administered Medications: 03:07 Drug: Cephalexin PO 500 mg PO once Route: PO; km8 03:26 Follow up: Response: No adverse reaction km8 03:07 Drug: Fluconazole PO 200 mg PO once Route: PO; km8 03:25 Follow up: Response: No adverse reaction km8 03:07 Drug: Trimethoprim-Sulfamethoxazole PO (160 mg-800 mg (DS) 1 tablet PO once Route: PO; km8 03:25 Follow up: Response: No adverse reaction km8 Medication: 02:46 VIS not applicable for this client. km8 Point of Care Testing: Blood Glucose: 02:59 Blood Glucose: 107 mg/dL; km8 Ranges: Outcome: 03:12 Discharge ordered by . sp4 03:25 Discharged to home via wheelchair, with significant other, km8 03:25 Condition: good 03:25 Discharge instructions given to patient, significant other, Instructed on discharge instructions, follow up and referral plans. medication usage, Demonstrated understanding of instructions, follow-up care, medications, Prescriptions given X 3, 03:26 Patient left the ED. km8 Signatures: Yuan Alvarado MD MD sp4 Mitchell, Ginger 2 Andie Cai, RN RN km8
--- NOTE | 2023-10-18 03:13 | EDPHYS ---
Physician Documentation [facility] Name: Dionicio Wilson Age: 68 yrs Sex: Female : 1955 Arrival Date: 10/18/2023 Time: 02:25 Bed 20 Private MD: ED Physician Yuan Alvarado HPI: 10/17 02:38 This 68 yrs old Female presents to ER via Unassigned with complaints of Snake sp4 bite, Insect Bite, PT IS NOT SURE WHAT KIND OF BITE IT IS., Foot Pain. 03:59 15-year-old female who is a very pleasant, presents with her for evaluation of sp4 redness to the left ankle. Patient states she was in her yard pulling weeds and at about 5 PM she has developed irritation and discomfort to the left ankle. Left ankle appears red and cellulitic localized to the left lateral ankle. Patient is concerned about either insect or snake bite. Patient has history of diabetes, CIDP, complex pain syndrome, diabetes type 2. . Historical: - Allergies: 02:47 No Known Allergies; km8 - PMHx: 02:47 Chronic Inflammatory Demyelinating Polyneuropathy; Complex Pain Syndrome; Diabetes - km8 NIDDM; High Cholesterol; Hypertension; Lupus; Pulmonary Embolism; Vascular Necrosis; - PSHx: 02:47 Total abdominal hysterectomy; Appendectomy; km8 - Immunization history:: Client reports receiving the 2nd dose of the Covid vaccine, Flu vaccine is up to date. - Social history:: Smoking status: Patient denies any tobacco usage or history of. Patient/guardian denies using alcohol, street drugs. - Family history:: not pertinent. ROS: 03:59 Constitutional: Negative for fever, chills, and weight loss, Eyes: Negative for injury, sp4 pain, redness, and discharge, Skin: Positive Left ankle redness and discomfort 03:59 All other systems are negative, Exam: 03:59 Constitutional: This is a well developed, well nourished patient who is awake, alert, sp4 and in no acute distress. Head/Face: Normocephalic, atraumatic. Eyes: Pupils equal round and reactive to light, extra-ocular motions intact. Lids and lashes normal. Conjunctiva and sclera are not injected. Cornea within normal limits. Periorbital areas with no swelling, redness, or edema. ENT: Nares patent. No nasal discharge, no septal abnormalities noted. Tympanic membranes are normal and external auditory canals are clear. Oropharynx with no redness, swelling, or masses, exudates, or evidence of obstruction, uvula midline. Mucous membranes moist. Neck: Trachea midline, no thyromegaly or masses palpated, and no cervical lymphadenopathy. Supple, full range of motion without nuchal rigidity, or vertebral point tenderness. Chest/axilla: Normal chest wall appearance and motion. Nontender with no deformity. No lesions are appreciated. Cardiovascular: Regular rate and rhythm with a normal S1 and S2. No gallops, murmurs, or rubs. Normal PMI, no JVD. No pulse deficits. Respiratory: Lungs have equal breath sounds bilaterally, clear to auscultation and percussion. No rales, rhonchi or wheezes noted. No increased work of breathing, no retractions or nasal flaring. Abdomen/GI: Soft, with normal bowel sounds. No distension or tympany. No guarding or rebound. No evidence of tenderness throughout. Back: No spinal tenderness. No costovertebral tenderness. Skin: Warm, dry with normal turgor. Positive left ankle celllulitis localized to left lateral ankle. No obvious puncture wound. MS/ Extremity: Pulses equal, no cyanosis. Neurovascular intact. Full, normal range of motion. Neuro: Awake and alert, GCS 15, oriented to person, place, time, and situation. Cranial nerves II-XII grossly intact. Motor strength 5/5 in all extremities. Sensory grossly intact. Psych: Awake, alert, with orientation to person, place and time. Behavior, mood, and affect are within normal limits Vital Signs: 02:40 BP 169 / 76; Pulse 73; Resp 16; Temp 98.8; Pulse Ox 100% on R/A; Weight 61.69 kg (R); km8 Height 5 ft. 0 in. ; Pain 5/10; 02:40 Body Mass Index 26.56 (61.69 kg, 152.4 cm) km8 02:40 Pain Scale: Adult km8 Jennifer Coma Score: 02:46 Eye Response: spontaneous(4). Motor Response: obeys commands(6). Verbal Response: km8 oriented(5). Total: 15. MDM: 03:06 Patient medically screened. sp4 04:04 Differential diagnosis: superficial laceration, tendon injury, vascular injury, sp4 cellulitis. Data reviewed: vital signs, nurses notes, lab test result(s), finger stick glucose. ED course: Patient is stable for discharge home with p.o. Bactrim, p.o. Keflex, and p.o. Diflucan to prevent yeast infection.. 10/17 03:10 Order name: Glucose, Ancillary Testing; Complete Time: 03:14 EDMS 10/17 02:48 Order name: Accucheck Blood Glucose; Complete Time: 02:59 sp4 Administered Medications: 03:07 Drug: Cephalexin PO 500 mg PO once Route: PO; km8 03:26 Follow up: Response: No adverse reaction km8 03:07 Drug: Fluconazole PO 200 mg PO once Route: PO; km8 03:25 Follow up: Response: No adverse reaction km8 03:07 Drug: Trimethoprim-Sulfamethoxazole PO (160 mg-800 mg (DS) 1 tablet PO once Route: PO; km8 03:25 Follow up: Response: No adverse reaction km8 Point of Care Testing: Blood Glucose: 02:59 Blood Glucose: 107 mg/dL; km8 Ranges: Critical Glucose Levels:Adult <50 mg/dl or >400 mg/dl <40 mg/dl or >180 mg/dl Disposition Summary: 10/18/23 03:12 Discharge Ordered Notes: Location: Home sp4 Problem: new sp4 Symptoms: are unchanged sp4 Condition: Stable sp4 Diagnosis - Cellulitis of left lower limb sp4 - Left ankle and lower leg cellulitis sp4 Followup: sp4 - With: Private Physician - When: 7 - 10 days - Reason: Recheck today's complaints Discharge Instructions: - Discharge Summary Sheet sp4 - Cellulitis, Adult sp4 Forms: - Patient Portal Instructions sp4 Prescriptions: - Cephalexin 500 mg Oral Capsule - take 1 capsule ORAL route every 8 hours for 10 days; 30 capsule; Refills: 0, sp4 Product Selection Permitted - Fluconazole 200 mg Oral tablet - take 1 tablet ORAL route once daily for 10 days; 10 tablet; Refills: 0, Product sp4 Selection Permitted - Bactrim DS 800-160 mg Oral Tablet - take 1 tablet ORAL route every 12 hours for 10 days; 20 tablet; Refills: 0, sp4 Product Selection Permitted Signatures: Yuan Alvarado MD MD sp4 Andie Cai, RN RN km8
[2023-10-18 03:44] VITALS: BP 169/76; TEMP 98.8; O2SAT 100
== END ==
LOC: ER 02:25
DX: L03.116 Cellulitis of left lower limb (principal)
CPT/HCPCS: 82947

== ENCOUNTER 2024-10-01 12:21 | Observation (INO) | payer OTHER, MEDICARE ==
[2024-10-01] MEDS ORDERED: IPRATROPIUM BROM 0.5MG/2.5ML ONE (12:49)
[2024-10-01] MEDS ORDERED: ALBUTEROL 2.5 MG/3 ML NEB SOL ONE (12:49)
[2024-10-01 13:53] LABS: Absolute Lymphocytes (CBC) 2.3 K/uL (0.7-4.9); Absolute Monocytes 0.5 K/uL (0.1-1.3); Absolute Neutrophil 4.4 K/uL (1.8-8.0); Basophils % 0.2 % (0-1.3); Hematocrit 31.9 % (36.0-45.0); Hemoglobin 11.1 g/dL (12.0-15.0); Lymphocytes % 31.6 % (15.3-44.8); MCH 27.5 pg (27.0-35.0); MCHC 34.6 g/dL (32.0-36.0); MCV 79.4 fL (80-100); MPV 8.3 fL (7.6-11.3); Monocytes % 6.8 % (3.3-12.3); Neutrophils % 61.4 % (41.7-73.7); PT Prothrombin Time 12.4 SECONDS (10.0-13.0); Platelets 173 thou/uL (152-406); Protime INR 1.09; RBC Red Blood Cell Count 4.02 M/uL (3.86-4.86); Red Cell Distribution Width 17.2 % (12.1-15.2)
[2024-10-01 13:58] LABS: ALT/SGPT 22 U/L (13-56); AST/SGOT 41 U/L (15-37); Albumin 3.1 g/dL (3.4-5.0); Albumin/Globulin Ratio 0.5 (1.1-1.8); Alkaline Phosphatase 112 U/L (45-117); BUN Blood Urea Nitrogen 13 mg/dL (7-18); Bicarbonate 27 mEq/L (21-32); Bilirubin Total 0.5 mg/dL (0.2-1.0); Glomerular Filtration Rate 50 ml/min (=/>90); Glucose Level 160 mg/dL (74-106); Magnesium 1.7 mg/dL (1.6-2.4); NT PRO-BNP 2332 pg/mL (<125); Protein, Total 9.1 g/dL (6.4-8.2); Sodium Level 136 mEq/L (136-145)
[2024-10-01 13:59] LABS: Bilirubin Direct < 0.2 mg/dL (0-0.2); Bilirubin Indirect, Calculated 0.3 mg/dL (0.2-0.8)
[2024-10-01 14:00] LABS: Troponin High Sensitivity 732.3 pg/mL (<58.9)
[2024-10-01 14:18] LABS: Influenza A Ag Negative; Influenza B Ag Negative; SARS-CoV-2 Antigen Rapid Res Negative (Negative)
[2024-10-01] MEDS ORDERED: ASPIRIN 81 MG CHEWABLE TABLET ONE (14:18)
--- NOTE | 2024-10-01 14:52 | RAD REPORT ---
EXAMINATION: CTA CHEST PE CLINICAL INDICATION: Female, 69 years old. SOB TECHNIQUE: This examination was performed according to an angiographic protocol with 3D post-processi ng. This involves 3D reconstructions, MIPs, volume rendered images and/or shaded surface rendering. One or more of the following dose reduction techniques were used: Automated exposure control, adjustm ent of the mA and/or kV according to patient size, and/or iterative reconstruction. Unless otherwise specified, incidental findings do not require dedicated imaging follow-up. [id number]. COMPARISON: 09/16/2020 FINDINGS: LOWER NECK: Visualized thyroid gland and soft tissues are normal. LUNGS AND AIRWAYS: Airways are clear. No evidence of airspace or interstitial process.No suspicious a nd/or stable pulmonary nodules. PLEURA: No pleural effusion. No pneumothorax. Hemidiaphragms are normally positioned. MEDIASTINUM AND LYMPH NODES: No mediastinal mass or fluid collection. Normal size mediastinal, hilar, and axillary lymph nodes. THORACIC AORTA: No thoracic aortic aneurysm. PULMONARY ARTERIES: Enlarged main pulmonary arteries could indicate pulmonary artery hypertension. Po sitive for pulmonary embolism with moderate clot burden extending from the distal right and left pulmonary arteries into the segmental branches primarily of the lower lungs. HEART: Normal heart size. No coronary calcifications.No significant pericardial effusion. Mild right ventricular dilatation. OSSEOUS STRUCTURES AND CHEST WALL: No fracture or suspicious osseous lesions. UPPER ABDOMEN: Significantly distended gallbladder which is nonspecific. Correlate with LFTs. This co uld be a hydropic gallbladder. IMPRESSION: 1. Positive for pulmonary embolism with moderate clot burden bilaterally. THIS REPORT CONTAINS FINDIN GS THAT MAY BE CRITICAL TO PATIENT CARE. The emergent findings were communicated to C Page on 10/01/2024 2:48 PM. Possible right heart strain. 2. Significantly distended gallbladder which is only partially imaged. Correlate with LFTs. Could con fish smoker right upper quadrant ultrasound clinically indicated.
--- NOTE | 2024-10-01 15:11 | RAD REPORT ---
EXAM: Chest Single View HISTORY: DYSPNEA COMPARISON: 03/31/2018 FINDINGS: LUNGS/PLEURA: The lungs are clear. No pleural effusions or pneumothorax. No pulmonary edema. MEDIASTINUM: The mediastinal silhouette is within normal limits. CARDIAC: Mild cardiomegaly UPPER ABDOMEN: No significant abnormality. BONES: No acute abnormality. Bilateral shoulder arthroplasties. Spinal stimulator. LINES/TUBES/OTHER: N/A IMPRESSION: No evidence of acute cardiopulmonary disease.
--- NOTE | 2024-10-01 15:36 | RAD REPORT ---
Extremity Venous Uni Ltd CLINICAL INDICATION: Female, 69 years old.PAIN TECHNIQUE: Complete duplex sonography of the lower extremity veins was performed of the affected limb . The examination included compression for vein patency, color Doppler imaging and flow augmentation in response to distal compression of the distal external iliac, common femoral, femoral, popliteal, peroneal, tibial and great saphenous veins. [id number]. COMPARISON: No prior exams FINDINGS: Positive for deep venous thrombosis in the common femoral vein and greater saphenous vein. These vess els were noncompressible and demonstrated clot on color Doppler and grayscale.The femoral vein, popliteal vein, posterior tibial vein were compressible and patent. IMPRESSION: Positive for deep venous thrombosis involving the left common femoral vein and greater saphenous vein . The patient has pulmonary emboli on same day chest CT.
--- NOTE | 2024-10-01 16:43 | RAD REPORT ---
Abdomen Exam Limited: 10/01/2024 4:14 PM CLINICAL HISTORY: r/o cholecystitis STUDY: Limited right upper quadrant ultrasound of abdomen. COMPARISON: Same day CT of the chest FINDINGS: Liver: Limited evaluation but grossly unremarkable. Bile ducts: No intrahepatic or extrahepatic biliary ductal dilatation. Common bile duct measures 5 mm. Gallbladder: The gallbladder is distended but no shadowing gallstones, gallbladder wall thickening, o r sonographic Ramos sign. No pericholecystic fluid. IMPRESSION: Distended gallbladder but otherwise unremarkable. Specifically, no evidence of acute cholecystitis. B y report, the patient has been NPO for 2 days which could explain the gallbladder distension.
--- NOTE | 2024-10-01 16:58 | EDPHYS ---
Physician Documentation [facility] Name: Dionicio Wilson Age: 69 yrs Sex: Female : 1955 Arrival Date: 10/01/2024 Time: 12:21 Bed 13 Private MD: ED Physician Kwaku Phillips HPI: 10/01 12:50 This 69 yrs old Female presents to ER via Wheelchair with complaints of Low O2 Levels, cp Groin Pain. 12:50 The patient has shortness of breath with light activity. cp 12:50 Onset: The symptoms/episode began/occurred 4 day(s) ago. Duration: The symptoms are cp continuous, and are steadily getting worse. Associated signs and symptoms: Pertinent positives: pain to left upper leg, Pertinent negatives: chest pain, productive cough, fever, vomiting. Severity of symptoms: in the emergency department the symptoms are unchanged despite home interventions. Historical: - Allergies: 12:38 No Known Allergies; aa5 - PMHx: 12:38 Vascular Necrosis; Pulmonary Embolism; Lupus; Hypertension; High Cholesterol; Diabetes aa5 - NIDDM; Complex Pain Syndrome; Chronic Inflammatory Demyelinating Polyneuropathy; - PSHx: 12:38 Appendectomy; Total abdominal hysterectomy; Left shoulder sx; Intrathecal pump with aa5 revision Sep 2024; - Immunization history:: Adult Immunizations unknown. - Infectious Disease History:: Denies. - Social history:: Smoking status: Patient denies any tobacco usage or history of. ROS: 12:55 Constitutional: Negative for body aches, chills, fever, poor PO intake, cp 12:55 Cardiovascular: Negative for chest pain, edema, palpitations, cp 12:55 Eyes: Negative for injury, pain, redness, and discharge, cp 12:55 Respiratory: Positive for shortness of breath, Negative for cough, hemoptysis, cp wheezing, 12:55 Abdomen/GI: Negative for abdominal pain, vomiting, diarrhea, constipation, 12:55 MS/extremity: Positive for pain, of the left upper leg, 12:55 Neuro: Negative for altered mental status, dizziness, headache, syncope, near syncope, 12:55 All other systems are negative, Exam: 13:00 Constitutional: The patient appears in no acute distress, alert, awake, cp non-diaphoretic, non-toxic, well developed, well nourished, 13:00 Head/Face: Normocephalic, atraumatic. cp 13:00 Eyes: Periorbital structures: appear normal, Conjunctiva: normal, no exudate, no injection, Sclera: no appreciated abnormality, Lids and lashes: appear normal, bilaterally, 13:00 ENT: External ear(s): are unremarkable, Nose: is normal, Mouth: Lips: moist, Oral mucosa: moist, Posterior pharynx: Airway: no evidence of obstruction, patent, 13:00 Chest/axilla: Inspection: normal, 13:00 Cardiovascular: Rate: normal, Rhythm: regular, Edema: is not appreciated, JVD: is not appreciated, 13:00 Respiratory: the patient does not display signs of respiratory distress, Respirations: normal, no use of accessory muscles, no retractions, labored breathing, is not present, Breath sounds: decreased breath sounds, that are mild, throughout, stridor, is not appreciated, wheezing: is not appreciated, 13:00 Abdomen/GI: Inspection: abdomen appears normal, Palpation: abdomen is soft and non-tender, in all quadrants, 13:00 Back: CVA tenderness, is absent, 13:00 Musculoskeletal/extremity: Extremities: noted in the left upper inner leg: tenderness, 13:00 Neuro: Orientation: to person, place \T\ time. Mentation: is normal, Motor: moves all fours, strength is normal, Sensation: is normal, 13:27 ECG was reviewed by the Attending Physician. cp Vital Signs: 12:36 BP 135 / 78; Pulse 78; Resp 18 S; Temp 97.3(TE); Pulse Ox 92% on R/A; Weight 61.69 kg aa5 (R); Height 5 ft. 0 in. (R); 13:30 BP 115 / 65; Pulse 83; Resp 18; Pulse Ox 94% on R/A; db 14:00 BP 155 / 78; Pulse 84; Resp 15; Pulse Ox 88% ; db 19:00 BP 146 / 73; Pulse 80; Resp 18; Pulse Ox 99% on R/A; db 12:36 Body Mass Index 26.56 (61.69 kg, 152.4 cm) aa5 14:00 PLACED ON NC 2L db MDM: 12:35 Medical Screening Exam initiated cp 17:00 Data reviewed: vital signs, nurses notes, lab test result(s), EKG, radiologic studies, cp CT scan, plain films, and as a result, I will admit patient. 17:00 Antibiotic administration: Not indicated. Management of patient was discussed with the cp following: Primary Care Provider: DR Omalley who will admit after discussion. Consult with Dr Barrett, pulmonology, who recommend administration of Lovenox injections for PE/DVT treatment. I considered the following discharge prescriptions or medication management in the emergency department Medications were administered in the Emergency Department. See OCT. 10/01 12:47 Order name: Basic Metabolic Panel; Complete Time: 14:03 cp 10/01 14:04 Interpretation: Normal except: GLUC 160; CRE 1.16; GFR 50. 10/01 12:47 Order name: CBC with Diff; Complete Time: 14:03 10/01 12:47 Order name: LFT's; Complete Time: 14:03 10/01 16:43 Interpretation: Normal except: AST 41. 10/01 12:47 Order name: Magnesium; Complete Time: 14:03 10/01 12:47 Order name: NT PRO-BNP; Complete Time: 14:03 cp 10/01 12:47 Order name: PT-INR; Complete Time: 14:03 10/01 12:47 Order name: Troponin HS; Complete Time: 14:03 10/01 14:04 Interpretation: Reviewed. 10/01 12:47 Order name: COVID-19 Ag + Flu A+B Ag; Complete Time: 15:22 10/01 18:07 Order name: Basic Metabolic Panel EDNV 10/01 18:07 Order name: Basic Metabolic Panel EDNV 10/01 18:07 Order name: CBC with Automated Diff EDNV 10/01 18:07 Order name: CBC with Automated Diff EDMS 10/01 18:07 Order name: Troponin High Sensitivity EDNV 10/01 18:07 Order name: Troponin High Sensitivity EDNV 10/01 18:07 Order name: Troponin High Sensitivity EDMS 10/01 18:07 Order name: Troponin High Sensitivity EDNV 10/01 12:47 Order name: XRAY Chest (1 view); Complete Time: 15:22 cp 10/01 14:08 Order name: US Extremity Venous Unilateral Ltd; Complete Time: 16:31 cp 10/01 16:32 Interpretation: Report reviewed. 10/01 14:08 Order name: CT Chest For PE Angio; Complete Time: 15:22 cp 10/01 15:29 Order name: US Abdomen Limited; Complete Time: 16:44 10/01 16:45 Interpretation: Report reviewed. cp 10/01 18:07 Order name: CONS Physician Consult [facility] 10/01 18:07 Order name: EKG Electrocardiogram EDNV 10/01 18:07 Order name: EKG Electrocardiogram EDNV 10/01 18:07 Order name: EKG Electrocardiogram EDNV 10/01 18:07 Order name: EKG Electrocardiogram [facility] 10/01 12:47 Order name: Cardiac monitoring; Complete Time: 13:35 cp 10/01 12:47 Order name: EKG - Nurse/Tech; Complete Time: 13:35 10/01 12:47 Order name: IV Saline Lock; Complete Time: 13:35 10/01 12:47 Order name: Labs collected and sent; Complete Time: 13:35 10/01 12:47 Order name: O2 Per Protocol; Complete Time: 13:08 10/01 12:47 Order name: O2 Sat Monitoring; Complete Time: 13:07 10/01 15:29 Order name: NPO; Complete Time: 15:38 cp EC:27 Rate is 81 beats/min. Rhythm is regular. ID interval is normal. QRS interval is normal. cp QT interval is normal. T waves are Inverted in lead aVR. Interpreted by me. Reviewed by me. Administered Medications: 12:53 Drug: DuoNeb Nebulize (2.5 mg - 0.5 mg) 3 ml Nebulizer once Route: Nebulizer; db 21:22 Follow up: Response: No adverse reaction ay 14:18 Drug: Aspirin PO Chewable Tablet 324 mg PO once; 81 mg tablets x 4 Route: PO; db 21:22 Follow up: Response: No adverse reaction ay 20:18 Drug: Enoxaparin Sub-Q 1 mg/kg Sub-Q once Route: Sub-Q; Site: right lower abdomen; ay 21:22 Follow up: Response: No adverse reaction ay Disposition Summary: 10/01/24 16:58 Hospitalization Ordered Notes: Hospitalization Status: Inpatient Admission cp Provider: Anthony Omalley cp Location: Telemetry/MedSurg (Inpatient) cp Condition: Fair cp Problem: new cp Symptoms: have improved cp Bed/Room Type: Standard cp Room Assignment: 407(10/01/24 19:46) rv1 Diagnosis - Other pulmonary embolism with acute cor pulmonale cp - Acute embolism and thrombosis of unspecified deep veins of left lower extremity cp - Hypoxemia cp Forms: - Medication Reconciliation Form cp - SBAR form cp - Leadership Thank You Letter cp Signatures: Dispatcher [employer] EDMS Sharon Mcguire RN RN aa5 Coy Llanos PA PA cp Deb Thapa RN RN db Ale Fabian rv1 Ophelia Miner RN RN ay Corrections: (The following items were deleted from the chart) 12:48 12:48 BASIC METABOLIC PANEL+C.LAB.BRZ ordered. EDMS EDMS 12:48 12:48 CBC+H.LAB.BRZ ordered. EDMS EDMS 12:48 12:48 HEPATIC FUNCTION+C.LAB.BRZ ordered. EDMS EDMS 12:48 12:48 MAGNESIUM+C.LAB.BRZ ordered. EDMS EDMS 12:48 12:48 PROBNP+C.LAB.BRZ ordered. EDMS EDMS 12:48 12:48 PROTIME (+INR)+COAG.LAB.BRZ ordered. EDMS EDMS 12:48 12:48 Troponin High Sensitivity+C.LAB.BRZ ordered. EDMS EDMS 12:48 12:48 COVID-19 Ag + Flu A+B Ag+I.LAB.BRZ ordered. EDMS EDMS 12:48 12:48 Chest Single View+RAD.RAD.BRZ ordered. EDMS EDMS 14:09 14:09 Chest For PE Angio+CT.RAD.BRZ ordered. EDMS EDMS 19:46 16:58 cp rv1
--- NOTE | 2024-10-01 16:58 | ER ---
Nurse's Notes [facility] Name: Dionicio Wilson Age: 69 yrs Sex: Female : 1955 Arrival Date: 10/01/2024 Time: 12:21 Bed 13 Private MD: Diagnosis: Other pulmonary embolism with acute cor pulmonale;Acute embolism and thrombosis of unspecified deep veins of left lower extremity;Hypoxemia Presentation: 10/01 12:36 Chief complaint: Patient states: "all I've been doing is sleeping the last few days and aa5 I get really short of breath doing anything". Pt reports low oxygen levels at home, reports 87% at home ,currently 92%RA during triage. Pt also c/o pain to left thigh. 12:36 Acuity: MUSHTAQ 3 aa5 12:36 Method Of Arrival: Wheelchair aa5 12:36 Coronavirus screen: shortness of breath. Ebola Screen: Patient denies travel to an aa5 Ebola-affected area in the 21 days before illness onset. Initial Sepsis Screen: Does the patient meet any 2 criteria? No. Patient's initial sepsis screen is negative. Does the patient have a suspected source of infection? No. Patient's initial sepsis screen is negative. Risk Assessment: Do you want to hurt yourself or someone else? Patient reports no desire to harm self or others. Onset of symptoms was 2024. Historical: - Allergies: 12:38 No Known Allergies; aa5 - PMHx: 12:38 Vascular Necrosis; Pulmonary Embolism; Lupus; Hypertension; High Cholesterol; Diabetes aa5 - NIDDM; Complex Pain Syndrome; Chronic Inflammatory Demyelinating Polyneuropathy; - PSHx: 12:38 Appendectomy; Total abdominal hysterectomy; Left shoulder sx; Intrathecal pump with aa5 revision Sep 2024; - Immunization history:: Adult Immunizations unknown. - Infectious Disease History:: Denies. - Social history:: Smoking status: Patient denies any tobacco usage or history of. Screenin:43 [facility] ED Fall Risk Assessment (Adult) History of falling in the last 3 months, db including since admission No falls in past 3 months (0 pts) Confusion or Disorientation No (0 pts) Intoxicated or Sedated No (0 pts) Impaired Gait Yes (1 pt) Mobility Assist Device Used Yes (1 pt) Altered Elimination No (0 pt) Score/Fall Risk Level 0 - 2 = Low Risk Oriented to surroundings, Maintained a safe environment. Abuse screen: Denies threats or abuse. Denies injuries from another. Nutritional screening: No deficits noted. Tuberculosis screening: No symptoms or risk factors identified. Assessment: 13:20 Reassessment: Patient appears in no apparent distress at this time. Patient and/or db family updated on plan of care and expected duration. Pain level reassessed. Patient is alert, oriented x 3, equal unlabored respirations, skin warm/dry/pink. General: Appears in no apparent distress. comfortable, Behavior is calm, cooperative. Pain: Denies pain. Respiratory: Reports shortness of breath Airway is patent Respiratory effort is even, unlabored, Respiratory pattern is. 15:00 Reassessment: Patient appears in no apparent distress at this time. Patient and/or db family updated on plan of care and expected duration. Pain level reassessed. Patient is alert, oriented x 3, equal unlabored respirations, skin warm/dry/pink. 16:00 Reassessment: Patient appears in no apparent distress at this time. Patient and/or db family updated on plan of care and expected duration. Pain level reassessed. Patient is alert, oriented x 3, equal unlabored respirations, skin warm/dry/pink. 18:00 Reassessment: Patient appears in no apparent distress at this time. Patient and/or db family updated on plan of care and expected duration. Pain level reassessed. Patient is alert, oriented x 3, equal unlabored respirations, skin warm/dry/pink. Neuro: Level of Consciousness is awake, alert, obeys commands, Oriented to person, place, time, situation. 19:00 Reassessment: Pt alert and oriented, no respiratory distress noted. Pt is wheelchair ay bound, VSS. 19:00 Respiratory: Airway is patent Respiratory effort is even, unlabored, Respiratory ay pattern is regular, symmetrical. Vital Signs: 12:36 BP 135 / 78; Pulse 78; Resp 18 S; Temp 97.3(TE); Pulse Ox 92% on R/A; Weight 61.69 kg aa5 (R); Height 5 ft. 0 in. (R); 13:30 BP 115 / 65; Pulse 83; Resp 18; Pulse Ox 94% on R/A; db 14:00 BP 155 / 78; Pulse 84; Resp 15; Pulse Ox 88% ; db 19:00 BP 146 / 73; Pulse 80; Resp 18; Pulse Ox 99% on R/A; db 12:36 Body Mass Index 26.56 (61.69 kg, 152.4 cm) aa5 14:00 PLACED ON NC 2L db Vitals: 13:30 Cardiac Rhythm Assessment Regular Sinus rhythm. db ED Course: 12:25 Patient arrived in ED. cj3 12:30 Coy Llanos PA is PHCP. cp 12:30 Kwaku Phillips MD is Attending Physician. cp 12:36 Arm band placed on. aa5 12:38 Triage completed. aa5 12:44 Deb Thapa, RN is Primary Nurse. db 13:28 Initial lab(s) drawn, by me, sent to lab. COVID swab sent to lab. Inserted saline lock: db 22 gauge in right forearm, using aseptic technique. Blood collected. Flushed with 10 mL NS. 13:42 Patient has correct armband on for positive identification. Bed in low position. Call db light in reach. Side rails up X 1. Provided Education on: DISCHARGE AND FOLLOWUP. Client placed on continuous cardiac and pulse oximetry monitoring. NIBP monitoring applied. property assessment monitor on. Pulse ox on. NIBP on. Warm blanket given. Pillow given. 14:01 XRAY Chest (1 view) In Process Unspecified. EDMS 14:[address] via stretcher. db 14:36 CT Chest For PE Angio In Process Unspecified. EDMS 15:25 US Extremity Venous Unilateral Ltd In Process Unspecified. EDMS 16:16 US Abdomen Limited In Process Unspecified. EDMS 16:55 Anthony Omalley MD is Hospitalizing Provider. cp 20:23 Ophelia Miner, RN is Primary Nurse. ay 21:30 Patient admitted, IV remains in place. ay Administered Medications: 12:53 Drug: DuoNeb Nebulize (2.5 mg - 0.5 mg) 3 ml Nebulizer once Route: Nebulizer; db 21:22 Follow up: Response: No adverse reaction ay 14:18 Drug: Aspirin PO Chewable Tablet 324 mg PO once; 81 mg tablets x 4 Route: PO; db 21:22 Follow up: Response: No adverse reaction ay 20:18 Drug: Enoxaparin Sub-Q 1 mg/kg Sub-Q once Route: Sub-Q; Site: right lower abdomen; ay 21:22 Follow up: Response: No adverse reaction ay Medication: 14:26 VIS not applicable for this client. db Outcome: 16:58 Decision to Hospitalize by Provider. cp 21:30 Admitted to Med/surg accompanied by supa, ay 21:30 Condition: stable 21:30 Instructed on the need for admit, 23:17 Patient left the ED. ay Signatures: Dispatcher [employer] EDMS Sharon Mcguire, RN RN aa5 Coy Llanos PA PA cp Benton, Danielle, RN RN Ophelia Wilkes RN RN Valarie Bernabe cj3 Corrections: (The following items were deleted from the chart) 12:40 12:36 Chief complaint: Patient states: "all I've been doing is sleeping the last few aa5 days and I get really short of breath doing anything". Pt reports low oxygen levels at home,currently 92%RA during triage. aa5 21:21 21:18 Reassessment: Pt alert and oriented, no respiratory distress noted. Pt is ay wheelchair bound, VSS ay
[2024-10-01] MEDS ORDERED: ONDANSETRON 4 MG/2 ML VIAL IV PRN (18:03)
--- NOTE | 2024-10-01 18:11 | P.HP ---
Patient History Date of Service: 10/01/24 Reason for admission: DYSPNEA, FATIGUE History of Present Illness: JEOVANY HAS HAD SLE, CIDP, HISTORY OF ONE PE. SHE WAS ON ELIQUIS UNTIL ABOUT 6 MTHS AGO. IT WS STOPPED SHE HAD ONE PROVOKED PE IN REMOTE PAST. SHE WENT THROUGH TWO RECENT SURGERIES FOR NECK AND BACK. GOT WEAK AND SHORT OF BREATH. SHE HAS MOD PE AGAIN. SHE WILL NOW BE ON LIFETIME ELIQUIS. Allergies No Known Allergies Allergy (Unverified 05/23/14 17:33) Home medications list reviewed: Yes Home Medications: Bisoprolol/Hctz [Ziac 05/13.25*] 1 tab PO DAILY 05/24/14 Calcium Carbonate [Caltrate 600] 600 mg PO BID 05/24/14 Cyanocobalamin [Vitamin B-12*] 1,000 mcg PO DAILY 05/24/14 Folic Acid 1 mg PO DAILY 05/24/14 Isosorbide Mononitrate [Isosorbide Mononitrate ER] 30 mg PO [id number] 05/24/14 Levothyroxine Sodium [Unithroid] 25 mcg PO [id number] 05/24/14 Metformin HCl [Glucophage*] 500 mg PO BID 05/24/14 Multivit-Minerals/Folic/Ginkgo [One Daily Women's 50+ Tablet] 1 each PO [id number] 05/24/14 Potassium Chloride [Micro-K] 10 meq PO BID 05/24/14 Promethazine Tab [Phenergan*] 25 mg PO Q6H PRN 05/24/14 Simvastatin [Zocor*] 40 mg PO BEDTIME 05/24/14 Venlafaxine HCl [Effexor XR] 150 mg PO DAILY 05/24/14 cloNIDine HCL [Catapres*] 0.1 mg PO BID 05/24/14 predniSONE [Prednisone*] 4 mg PO [id number] 05/24/14 Apixaban [Eliquis *] 5 mg PO BID 03/31/18 Baclofen [Lioresal*] 10 mg PO TID 03/31/18 Hydroxychloroquine [Plaquenil*] 200 mg PO BID 03/31/18 Losartan Potassium 100 mg PO DAILY 03/31/18 Magnesium Oxide [Magnesium] 250 mg PO BID 03/31/18 Pantoprazole Sodium [Protonix] 10 mg PO DAILY 03/31/18 Zolpidem Tartrate [Ambien] 5 mg PO BEDTIME 03/31/18 Amlodipine [Norvasc*] 2.5 mg PO DAILY #30 tab 04/03/18 Cefuroxime [Ceftin] 250 mg PO BID #20 tab 04/03/18 - Past Medical/Surgical History Diabetic: Yes -: htn -: hypothyroidism -: fibromyalgia -: copd -: lupus -: sciatica -: chris hip replacement -: intrathecal pump - Family History Mother -: Stroke - Social History Alcohol use: No CD- Drugs: No Caffeine use: Yes Review of Systems 10-point ROS is otherwise unremarkable General: Weakness Physical Examination - Physical Exam General: Acute distress, Other (WC BOUND.) HEENT: Atraumatic, PERRLA, Mucous membr. moist/pink, EOMI, Sclerae nonicteric Neck: Supple, 2+ carotid pulse no bruit, No LAD, Without JVD or thyroid abnormality Respiratory: Clear to auscultation bilaterally, Normal air movement Cardiovascular: Regular rate/rhythm, Normal S1 S2 Gastrointestinal: Normal bowel sounds, No tenderness Musculoskeletal: No tenderness Integumentary: No rashes Neurological: Normal gait, Normal speech, Normal strength at 5/5 x4 extr, Normal tone, Normal affect Lymphatics: No axilla or inguinal lymphadenopathy - Studies Laboratory Data (last 24 hrs) 10/01/24 10/01/24 10/01/24 13:28 13:28 13:28 WBC 7.10 Hgb 11.1 L Hct 31.9 L Plt Count 173 PT 12.4 INR 1.09 Sodium 136 Potassium 4.0 BUN 13 Creatinine 1.16 H Glucose 160 H Magnesium 1.7 Total Bilirubin 0.5 AST 41 H ALT 22 Alkaline Phosphatase 112 Assessment and Plan - Problems (Diagnosis) (1) Pulmonary emboli Current Visit: Yes Status: Acute Plan: SECOND PROOVOKED PE CONT LOVENOX WILL CHANGE TO ELIQUIS WHEN HOME. CONSULT DR. ROMO. LIFETIME ELIQUIS NOW. (2) SLE (systemic lupus erythematosus related syndrome) Onset Date: 04/03/18 Current Visit: No Status: Chronic (3) CIDP (chronic inflammatory demyelinating polyneuropathy) Current Visit: Yes Status: Chronic Plan: HAS BEEN TO DR FLAHERTY AND GETS IMMUNOTHERAPY. - Advance Directives Does patient have a Living Will: Yes Does patient have a Durable POA for Healthcare: No
[2024-10-01] MEDS ORDERED: ENOXAPARIN 60 MG/0.6 ML SQ ONE (18:57)
[2024-10-01] MEDS: ENOXAPARIN 60 MG/0.6 ML SQ SCH (22:24)
[2024-10-01] MEDS: methocarbamoL 500 MG TAB PO SCH (23:01)
[2024-10-01] MEDS: HYDROCODONE/APAP 10/325 TAB PO PRN (23:02)
[2024-10-01] MEDS: ZOLPIDEM TARTRATE 5 MG TABLET PO SCH (23:02)
[2024-10-01 23:39] VITALS: BMI 26.5
[2024-10-02 05:17] LABS: Absolute Lymphocytes (CBC) 1.3 K/uL (0.7-4.9); Absolute Monocytes 0.5 K/uL (0.1-1.3); Absolute Neutrophil 2.8 K/uL (1.8-8.0); Basophils % 0.3 % (0-1.3); Eosinophils % 0.2 % (0-4.4); Hematocrit 28.5 % (36.0-45.0); Hemoglobin 9.4 g/dL (12.0-15.0); Lymphocytes % 28.3 % (15.3-44.8); MCH 26.6 pg (27.0-35.0); MCV 80.6 fL (80-100); MPV 8.1 fL (7.6-11.3); Monocytes % 10.7 % (3.3-12.3); Neutrophils % 60.5 % (41.7-73.7); Nucleated Red Blood Cells % 0.3 % (0-0); Platelets 159 thou/uL (152-406); RBC Red Blood Cell Count 3.54 M/uL (3.86-4.86); Red Cell Distribution Width 17.2 % (12.1-15.2)
[2024-10-02 05:41] LABS: Anion Gap 10.5 mEq/L (5.0-15.0); Potassium 3.5 mEq/L (3.5-5.1)
[2024-10-02] MEDS ORDERED: FLU (Fluarix Triv) TS24-25(6MOS UP)/PF 45 MCG/0.5 ML Syringe IM ONE (07:15)
[2024-10-02] MEDS: APIXABAN 5 MG TABLET PO SCH (09:33)
--- NOTE | 2024-10-02 11:10 | PN ---
Code 44 Note I discussed the case with Dr. Omalley. The patient was admitted with PE and was treated appropriately. Does not need to be an inpatient. She was converted to OBS, therefore I approved the code 44. NESS/NATE Voice ID: [id number] Report ID: [id number]
--- NOTE | 2024-10-02 11:42 | P.CNS ---
Date of Consult: 10/02/24 Reason for Consult: DVT pulmonary embolism Chief Complaint: DYSPNEA, FATIGUE History of Present Illness: Patient is 69 years of age she recently had a left shoulder replaced worsening dyspnea over the past 2 days some discomfort in the left thigh very fatigued tired came into the hospital had a left-sided DVT with pulmonary embolism episode of pulmonary embolism was in 2004 also occurred after surgery he is doing better Allergies No Known Allergies Allergy (Unverified 05/23/14 17:33) Home Medications: Bisoprolol/Hctz [Ziac *] 1 tab PO DAILY 05/24/14 Metformin HCl [Glucophage*] 500 mg PO BID 05/24/14 Apixaban [Eliquis *] 5 mg PO BID 03/31/18 Magnesium Oxide [Magnesium] 250 mg PO BID 03/31/18 Amlodipine [Norvasc*] 10 mg PO DAILY 10/01/24 Calcium Carbonate/Vitamin D3 [Caltrate 600 Plus D3 Tablet] 1 each PO DAILY 10/01/24 LORazepam [Ativan*] 0.5 mg PO BID PRN 10/01/24 Levothyroxine Sodium 75 mcg PO DAILY 10/01/24 Mecobalamin [B12 Active] 1,000 mcg PO DAILY 10/01/24 Melatonin [Melatonin ER] 10 mg PO BEDTIME 10/01/24 Mv-Min/Iron/Folic/Calcium/Vitk [Women's Multivitamin Tablet] 1 tab PO DAILY 10/01/24 Pantoprazole [Protonix Tab*] 1 tab PO DAILY 10/01/24 Pilocarpine HCl 5 mg PO TID PRN 10/01/24 Promethazine Tab [Phenergan*] 25 mg PO Q6H PRN 10/01/24 Simvastatin 40 mg PO BEDTIME 10/01/24 Spironolactone 50 mg PO DAILY 10/01/24 Venlafaxine HCl [Venlafaxine HCl ER] 150 mg PO BEDTIME 10/01/24 methocarbamoL [Methocarbamol] 500 mg PO BID 10/01/24 modafiniL [Modafinil] 200 mg PO SEECOM 10/01/24 predniSONE [Prednisone*] 1 mg PO DAILY 10/01/24 Apixaban [Eliquis] 10 mg PO BID #60 10/02/24 - Past Medical/Surgical History Diabetic: Yes -: htn -: hypothyroidism -: fibromyalgia -: copd -: lupus -: sciatica -: chris hip replacement -: intrathecal pump - Family History Mother Medical History: Stroke - Social History Alcohol use: No CD- Drugs: No Caffeine use: Yes Place of Residence: Home Review of Systems 10-point ROS is otherwise unremarkable General: Weakness Respiratory: Shortness of Breath Physical Examination Temp Pulse Resp BP Pulse Ox 97.9 F 69 18 128/70 99 10/02/24 08:00 10/02/24 08:00 10/02/24 09:21 10/02/24 08:00 10/02/24 09:21 General: Alert HEENT: Atraumatic Neck: Supple Respiratory: Clear to auscultation bilaterally Cardiovascular: No edema, Normal pulses, Regular rate/rhythm Laboratory Data (last 24 hrs) 10/01/24 10/01/24 10/01/24 13:28 13:28 13:28 WBC 7.10 Hgb 11.1 L Hct 31.9 L Plt Count 173 PT 12.4 INR 1.09 Sodium 136 Potassium 4.0 BUN 13 Creatinine 1.16 H Glucose 160 H Magnesium 1.7 Total Bilirubin 0.5 AST 41 H ALT 22 Alkaline Phosphatase 112 - Problems (1) Pulmonary emboli Current Visit: Yes Status: Acute Plan: Patient is 69 years of age admitted with DVT pulmonary embolism CT scan and Dopplers reviewed. 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
[2024-10-02 15:52] VITALS: O2SAT 95
[2024-10-02 16:04] VITALS: BP 137/69; TEMP 98.1
--- NOTE | 2024-10-02 17:19 | P.DS ---
Admission Date: 10/01/24 Discharge Date: 10/02/24 Disposition: ROUTINE DISCHARGE Discharge Condition: FAIR Reason for Admission: DYSPNEA, FATIGUE - Problems (1) Pulmonary emboli Current Visit: Yes Status: Acute Qualifiers: Acute cor pulmonale presence: unspecified (2) SLE (systemic lupus erythematosus related syndrome) Onset Date: 04/03/18 Current Visit: No Status: Chronic (3) CIDP (chronic inflammatory demyelinating polyneuropathy) Current Visit: Yes Status: Chronic Brief History of Present Illness: JEOVANY HAS HAD SLE, CIDP, HISTORY OF ONE PE. SHE WAS ON ELIQUIS UNTIL ABOUT 6 MTHS AGO. IT WS STOPPED SHE HAD ONE PROVOKED PE IN REMOTE PAST. SHE WENT THROUGH TWO RECENT SURGERIES FOR NECK AND BACK. GOT WEAK AND SHORT OF BREATH. SHE HAS MOD PE AGAIN. SHE WILL NOW BE ON LIFETIME ELIQUIS. Hospital Course: JEOVANY IS A PATIENT WITH MANY MEDICAL ISSUES INCLUDING CIDP, HISTORY OF PE, SEVERE DJD, COMES WITH FATIGUE AND HYPOXIA. SHE HAS SECOND PE AND WILL BE ON ELIQUIS FOR LIFE TIME. SHE HAS HISTORY OF LUPUS ALSO. SHE IS STABLE TO GO HOME WITH OXYGEN. Vital Signs/Physical Exam: Temp Pulse Resp BP Pulse Ox 98.1 F 74 16 137/69 96 10/02/24 16:00 10/02/24 16:00 10/02/24 16:00 10/02/24 16:00 10/02/24 16:00 Laboratory Data at Discharge: WBC 4.60 thou/uL (4.3-10.9) 10/02/24 04:53 Hgb 9.4 g/dL (12.0-15.0) L D 10/02/24 04:53 Hct 28.5 % (36.0-45.0) L 10/02/24 04:53 Plt Count 159 thou/uL (152-406) 10/02/24 04:53 PT 12.4 SECONDS (10.0-13.0) 10/01/24 13:28 INR 1.09 10/01/24 13:28 Sodium 140 mEq/L (136-145) 10/02/24 04:53 Potassium 3.5 mEq/L (3.5-5.1) 10/02/24 04:53 BUN 13 mg/dL (7-18) 10/02/24 04:53 Creatinine 0.82 mg/dL (0.55-1.02) 10/02/24 04:53 Glucose 122 mg/dL (74-106) H 10/02/24 04:53 Magnesium 1.7 mg/dL (1.6-2.4) 10/01/24 13:28 Total Bilirubin 0.5 mg/dL (0.2-1.0) 10/01/24 13:28 AST 41 U/L (15-37) H 10/01/24 13:28 ALT 22 U/L (13-56) 10/01/24 13:28 Alkaline Phosphatase 112 U/L (45-117) 10/01/24 13:28 Home Medications: Bisoprolol/Hctz [Ziac *] 1 tab PO DAILY 05/24/14 Metformin HCl [Glucophage*] 500 mg PO BID 05/24/14 Apixaban [Eliquis *] 5 mg PO BID 03/31/18 Magnesium Oxide [Magnesium] 250 mg PO BID 03/31/18 Amlodipine [Norvasc*] 10 mg PO DAILY 10/01/24 Calcium Carbonate/Vitamin D3 [Caltrate 600 Plus D3 Tablet] 1 each PO DAILY 10/01/24 LORazepam [Ativan*] 0.5 mg PO BID PRN 10/01/24 Levothyroxine Sodium 75 mcg PO DAILY 10/01/24 Mecobalamin [B12 Active] 1,000 mcg PO DAILY 10/01/24 Melatonin [Melatonin ER] 10 mg PO BEDTIME 10/01/24 Mv-Min/Iron/Folic/Calcium/Vitk [Women's Multivitamin Tablet] 1 tab PO DAILY 10/01/24 Pantoprazole [Protonix Tab*] 1 tab PO DAILY 10/01/24 Pilocarpine HCl 5 mg PO TID PRN 10/01/24 Promethazine Tab [Phenergan*] 25 mg PO Q6H PRN 10/01/24 Simvastatin 40 mg PO BEDTIME 10/01/24 Spironolactone 50 mg PO DAILY 10/01/24 Venlafaxine HCl [Venlafaxine HCl ER] 150 mg PO BEDTIME 10/01/24 methocarbamoL [Methocarbamol] 500 mg PO BID 10/01/24 modafiniL [Modafinil] 200 mg PO SEECOM 10/01/24 predniSONE [Prednisone*] 1 mg PO DAILY 10/01/24 Apixaban [Eliquis] 10 mg PO BID #60 tablet 10/02/24 New Medications: Apixaban [Eliquis] 10 mg PO BID #60 tablet Followup: Anthony Omalley MD [Primary Care Provider] -
== END 2024-10-02 19:00 | disposition home or self-care (01) ==
LOC: ER 12:21 → ERHOLD 18:01 → INTOOBSV 18:01 → 4TH 21:55
PROVIDERS: ADMIT Internal Medicine; ATTEND Internal Medicine
DX: I26.99 Other pulmonary embolism without acute cor pulmonale (principal); I82.412 Acute embolism and thrombosis of left femoral vein; R09.02 Hypoxemia; M32.9 Systemic lupus erythematosus, unspecified; G61.81 Chronic inflammatory demyelinating polyneuritis; R53.83 Other fatigue; Z11.52 Encounter for screening for COVID-19
CPT/HCPCS: 93005 ×2; 85025 ×2; 80048 ×2; 36415; 83735; 85610; 80076; 84484 ×3; 83880; 71275; 71045; 93971; 76705; 96372; 99285; 87428; Q9967; J1650 ×3; J7613; J7644; G0378